=== PATIENT | female | born 1980 | race Caucasian/White ===

== ENCOUNTER 2024-01-22 23:10 | Emergency (ER) | payer OTHER, SELFPAY ==
[2024-01-22 23:16] VITALS: BP 127/83; PULSE 75; RESP 20; TEMP 36.6; O2SAT 98; BMI 22.6
[2024-01-22 23:50] VITALS: O2SAT 99
[2024-01-22 23:59] LABS: Chloride* 107 mmol/L (96-114); Potassium* 3.8 mmol/L (3.6-5.1); Sodium* 138 mmol/L (135-149)
[2024-01-23 00:01] LABS: Creatinine* 0.8 mg/dL (0.5-1.5); Est. Creatinine Clearance* 86.63
[2024-01-23 00:02] LABS: Anion Gap 6 mEq/L (7-15); Blood Urea Nitrogen* 20 mg/dL (5-24); Calcium* 9.3 mg/dL (8.4-10.6); Carbon Dioxide* 25 mmol/L (20-32); Estimated Glomerular Filt Rate 95 ml/min; Glucose* 111 mg/dL (60-115)
--- NOTE | 2024-01-23 00:13 | ED_ITS ---
HPI - General Adult General Chief complaint: Chest Pain Stated complaint: chest pain, difficulty breathing Time Seen by Provider: 01/22/24 23:59 Source: patient Mode of arrival: ambulatory Limitations: no limitations History of Present Illness HPI narrative: Female presents the emergency department 1 hour after onset of pain in the upper back area that quickly radiated around to the left anterior chest was accomp anied by bilateral finger tingling, lip tingling, sense of shortness of breath, dizziness, nausea and admittedly anxiety. Does have a history of anxiety disorder, denies history of cardiac issues. No prior stress testing. Does have a history of asthma. Reports that this has been under good control as of recent. Has used her albuterol inhaler a couple of times over the past week but not regularly, has not used her nebulizer at all. No recent steroid or antibiotic use. No productive cough or fever. Denies significant alcohol intake her other exacerbating factors. Chest pain started at rest, nonexertional. No abdominal pain, no trauma. Reports that she has been on would go be for about the past 10 months, significant weight loss without significant side effects, no other recent medication changes. Her only other long-term medications are her asthma control medications which have not recently changed. Reports that her symptoms started feeling much better once she was checked in by the nursing team, placed in a room and received some reassurance that her vitals were stable. Past medical history notable for moderate persistent asthma, obesity with recent successful weight loss. Allergies reviewed. Nonsmoker. ROS notable for the chest symptoms as described above, otherwise denies times 12 systems. Related Data Allergies Allergy/AdvReac Type Severity Reaction Status Date / Time aspirin AdvReac Verified 01/22/24 23:19 cephalexin [From Keflex] AdvReac Verified 01/22/24 23:19 Exam Const: Vital Signs, click to edit/add: Vital Signs - 24 hr 01/22/24 23:16 Temperature 97.9 F Pulse Rate [Pulse Oximeter] 75 Respiratory Rate 20 Blood Pressure [Ri ght Upper Arm] 127/83 Pulse Oximetry 98 Oxygen Delivery Me thod Room Air Documenting provider has reviewed patient's vital signs: yes Common normals: no apparent distress General appearance: cooperative, comfortable and well joi HENMT: Common normals: normocephalic, moist oral mucous membranes and oropharynx normal Head and scalp: normocephalic Eye: Common normals: conjunctivae normal General eye: normal appearance of both eyes Conjunctiva: conjunctiva(e) normal Neck & C-Spine: Common normals: full ROM and no lymphadenopathy Resp: Common normals: normal respiratory effort, no use of accessory muscles and clear to auscultation bilaterally Effort & inspection: able to speak in complete sentences Auscultation: clear to auscultation bilaterally Cardio: Common normals: regular rate, regular rhythm, S1 normal heart sound, S2 normal heart sound and no murmurs Rate: regular rate Rhythm: regular rhythm Heart sounds: S1 normal and S2 normal GI: Common normals: Normal to inspection, nondistended, normoactive bowel sounds present, soft to palpation, non-tender, no hepatosplenomegaly and no masses Palpation: soft and no hepatosplenomegaly Extremity: Common normals: normal to inspection, normal capillary refill and no pedal edema Neuro: Speech: speech normal Motor exam: no tremor noted and no movement abnormalities noted Psych: Common normals: speech normal Appearance: well kempt Attitude: calm and engaged Speech: normal speech Mood and affect: euthymic mood Insight: insight good Judgement: judgment good Course Course ED Course: I saw patient at the start of my shift but she had been waiting for over an hour. At this time she is calm, asymptomatic. Vitals are stable, EKG and troponin obtained, basic labs. No overwhelming risk factors for heart disease. Patient notes that she thinks now looking back that her symptoms were probably anxiety related. I am not detecting any signs of an asthma flare, GI illness and or significant musculoskeletal illness. Will await lab findings. Offered low-dose antianxiety medication, she declines at this time. If all labs are normal, counseled that she will be discharged home with primary care follow-up for persistent symptoms. Vital Signs Vital signs: Initial Vital Signs Temperature 97.9 F 01/22/24 23:16 Temperature Source Temporal Artery Scan 01/22/24 23:16 Pulse Rate 75 01/22/24 23:16 Respiratory Rate 20 01/22/24 23:16 Blood Pressure 127/83 01/22/24 23:16 Blood Pressure Mean 97 01/22/24 23:16 Blood Pressure Position Sitting 01/22/24 23:16 Pulse Oximetry 98 01/22/24 23:16 Oxygen Delivery Method Room Air 01/22/24 23:16 Vital Signs Temperature 97.9 F 01/22/24 23:16 Pulse Rate 75 01/22/24 23:16 Respiratory Rate 20 01/22/24 23:16 Blood Pressure 127/83 01/22/24 23:16 Pulse Oximetry 98 01/22/24 23:16 Oxygen Delivery Method Room Air 01/22/24 23:16 Temperature 97.9 F 01/22/24 23:16 Pulse Rate 75 01/22/24 23:16 Respiratory Rate 20 01/22/24 23:16 Blood Pressure 127/83 01/22/24 23:16 Pulse Oximetry 98 01/22/24 23:16 Oxygen Delivery Method Room Air 01/22/24 23:16 Medical Decision Making Lab Data Lab results reviewed: Yes I reviewed the patient's lab results Lab results narrative: Labs normal, as expected. Labs: Lab Results 01/22/24 Range/Units 23:35 WBC 12.15 H (4.50-11.00) K/uL RBC 5.54 H (4.00-5.20) m/uL Hgb 17.1 H (12.0-16.0) gm/dL Hct 50.1 (33.0-51.0) % MCV 90 (80-100) fL MCH 31 (26-34) pg MCHC 34 (32-36) gm/dL RDW Coeff of Ritu 12.0 (11.5-15.5) % Plt Count 385 (140-440) K/uL Neut % (Auto) 51.1 (42.0-72.0) % Lymph % (Auto) 36.8 (20-44) % [place] % (Auto) 5.6 (0.0-11.0) % Eos % (Auto) 5.8 (0.0-7.0) % Baso % (Auto) 0.6 (0.0-3.0) % Neut # (Auto) 6.20 (1.7-7.0) K/uL Lymph # (Auto) 4.50 H (0.90-2.90) K/uL [place] # (Auto) 0.70 (0.00-0.90) K/UL Eos # (Auto) 0.70 H (0.00-0.50) K/uL Baso # (Auto) 0.10 (0.00-0.30) K/uL Abs Immat Gran (auto) 0.00 (0.00-0.30) K/uL Imm/Tot Granulo (auto) 0.1 % Sodium 138 (135-149) mmol/L Potassium 3.8 (3.6-5.1) mmol/L Chloride 107 (96-114) mmol/L Carbon Dioxide 25 (20-32) mmol/L Anion Gap 6 L (7-15) mEq/L BUN 20 (5-24) mg/dL Creatinine 0.8 (0.5-1.5) mg/dL Estimated Creat Clear 86.63 Estimated GFR 95 ml/min Glucose 111 (60-115) mg/dL Calcium 9.3 (8.4-10.6) mg/dL POC Troponin I 0.00 L (0.01-0.04) ng/ml ECG Data Attestation: I personally reviewed and interpreted this ECG as follows: Prior ECG tracings: available for review (Comparison 07/27/2020) Interpretation: Since 2019, P waves have enlarged which could indicate some early atrial enlargement but is otherwise benign. Normal sinus rhythm, rate 71. Normal axis and intervals. No signs of ischemia. ST and T-wave segments normal. Discharge Plan Discharge Clinical Impression: Non-cardiac chest pain Patient Disposition: Home w/ Parent or Adult Condition: Improved Instructions: Noncardiac Chest Pain (ED) Additional Instructions: As we discussed, your heart and lungs are in great shape. No signs of a heart attack today. Your chest pain could be related to anxiety, it could also be related to gastric reflux which would certainly be worsened with your use of wegovy. Continue to keep an eye on your symptoms. If you continue to have persistent symptoms that are bothersome, discuss with your primary care provider. If you have worsening of chest symptoms, especially if on exertion, you should be re-evaluated sooner. Activity Level: No Restrictions Discharge Diet: Regular Stand Alone Forms: [employer] Info Instructions
[2024-01-23 00:22] LABS: Basophils Percent Auto 0.6 % (0.0-3.0); Eosinophils Percent Auto 5.8 % (0.0-7.0); Hematocrit 50.1 % (33.0-51.0); Hemoglobin* 17.1 gm/dL (12.0-16.0); Immature Granulocytes Pct Auto 0.1 %; Lymphocytes Percent Auto 36.8 % (20-44); Mean Corpuscular HGB Conc 34 gm/dL (32-36); Mean Corpuscular Hemoglobin 31 pg (26-34); Mean Corpuscular Volume 90 fL (80-100); Monocytes Percent Auto 5.6 % (0.0-11.0); Neutrophils Percent Auto 51.1 % (42.0-72.0); Platelet Count* 385 K/uL (140-440); Red Blood Count 5.54 m/uL (4.00-5.20); White Blood Count* 12.15 K/uL (4.50-11.00)
[2024-01-23 00:25] LABS: Slide Review Reflex No
[2024-01-23 00:45] VITALS: BP 118/74; PULSE 81; RESP 20; TEMP 36.6; O2SAT 98
[2024-01-23 00:47] VITALS: BP 118/74; PULSE 81; RESP 20; TEMP 36.6
== END 2024-01-23 00:47 | disposition home or self-care (01) ==
LOC: ED 01-23 00:21
PROVIDERS: Emergency Provider Family Medicine
DX: R07.89 Other chest pain (principal)
CPT/HCPCS: 36415; 80048; 84484; 85025; 93005; 94761; 99283; 99284

== ENCOUNTER 2024-09-11 20:55 | Outpatient (CLI) | payer OTHER, SELFPAY | END 2024-09-11 20:56 | disposition home or self-care (01) | LOC: AMB 09-14 03:58 | PROVIDERS: Visit Provider Emergency Medicine | DX: R06.09 Other forms of dyspnea (principal) | CPT/HCPCS: A0425; A0427 ==

== ENCOUNTER 2024-09-11 21:25 | Emergency (ER) | payer OTHER, SELFPAY ==
[2024-09-11 21:32] VITALS: BP 134/96; PULSE 76; RESP 24; TEMP 36.5; O2SAT 93; BMI 23.4
--- NOTE | 2024-09-11 21:34 | ED_ITS ---
HPI - General Adult General Date Seen: 09/11/24 Chief complaint: Asthma Stated complaint: Asthma Attack Time Seen by Provider: 09/11/24 21:33 History of Present Illness HPI narrative: 44 yo F brought to the ER today by EMS for evaluation of difficulty breathing, w heezing, and asthma attack. History from the patient is says she has a long history of asthma and allergies ever since she turned 36 years old. She is on multiple medications including Zyrtec, Singulair, Trelegy, Flonase, budesonide inhalers b.i.d.. She also has albuterol inhaler that she uses frequently at home. She has multiple previous ER visits and multiple previous hospitalizations but no previous intubations for asthma. She was probably on a course of prednisone earlier this month but she does not remember for sure. Within 1 or 2 months for certainly. She has been feeling a productive cough and like her asthma is flaring up for the past several days. In retrospect, she says she think she probably should have gone to the doctor a couple of days ago. She was working outside all day today and started to feel more short of breath because of the weather. Around 8 or 8:20 p.m. she was working in the barn when she really felt an asthma attack flare up. She was very short of breath and anxious. She thought she might collapse. She called her and asked him to call 911. She tried to give herself multiple of her albuterol inhalers but they really were not helping. Paramedics were delayed in arrival because they received the wrong address but when they arrived she was wheezy. They administered a DuoNeb. They were able to establish IV and brought her straight here to the ER. After the multiple inhalers and DuoNeb she is feeling slightly better but is still tight and wheezy. She is not running a fever. She does have a productive yellow cough. No chest pain. No known sick exposures. Related Data Home Medications ?Medication ?Instructions ?Recorded ?Confirmed albuterol sulfate 90 mcg/actuation inhalation 09/11/24 aerosol inhaler aripiprazole 5 mg tablet 5 mg DAILY 09/11/24 budesonide 1 mg/2 mL suspension 1 mg DAILY 09/11/24 for nebulization bupropion HCl 300 mg 24 hr tablet, 300 mg PO DAILY 09/11/24 09/11/24 extended release buspirone 30 mg tablet 30 mg PO BID 09/11/24 09/11/24 fluticasone fur. 200 mcg-umeclid inhalation DAILY 09/11/24 62.5 mcg-vilant 25 mcg inhalat.powder (Trelegy Ellipta) hydroxyzine HCl 10 mg tablet 10 mg PO BID 09/11/24 09/11/24 montelukast 10 mg tablet 10 mg PO QPM 09/11/24 09/11/24 omeprazole 20 mg capsule,delayed 20 mg PO DAILY 09/11/24 09/11/24 release semaglutide (weight loss) 2.4 2.4 mg subcut 09/11/24 mg/0.75 mL subcutaneous pen injector (Wegovy) Previous Rx's ?Medication ?Instructions ?Recorded prednisone 10 mg tablet See Rx Instructions .Route 09/11/24 .COMPLEX #42 tabs Allergies Allergy/AdvReac Type Severity Reaction Status Date / Time aspirin AdvReac Verified 01/22/24 23:19 cephalexin (From Keflex) AdvReac Verified 01/22/24 23:19 [facility] Medical History (Updated 09/11/24 @ 23:31 by Omari Gomez MD) Asthma ?J45.909 - Unspecified asthma, uncomplicated (ICD-10) Social History Smoking Status: Current every day smoker Second hand tobacco smoke exposure: Yes How often do you have a drink containing alcohol: never AUDIT-C Alcohol total score: 0 Non-prescribed substance use: denies use Exam Narrative: Exam Narrative: Constitutional: Appears well-developed and well-nourished. Alert. Conversant and able to speak moderately long sentences but does look short of breath and is tachypneic. She is alert, conversant, very detailed and intelligent. Mentating normally. HENT: Head: Atraumatic. Nose: Nose normal. Mouth/Throat: Oral mucosa is clear and moist. no trismus. Pharynx normal. Tonsils symmetric. No tonsillar enlargement, erythema, or exudate. Eyes: Conjunctivae normal. EOM normal. Pupils equal, round, and reactive to light. No scleral icterus. Neck: Normal range of motion. Neck supple. No tracheal deviation present. No JVD Cardiovascular: Normal rate, regular rhythm. No gallop. No friction rub. No murmur heard. Symmetric radial artery pulses Pulmonary/Chest: Effort normal. No stridor. No respiratory distress. Diffuse bilateral wheezing and she cannot really breathe out without coughing due to bronchospastic cough.. No rales. No rhonchi . No tenderness. Abdominal: Soft. No distension. No mass. No tenderness. No rebound. No guarding. Musculoskeletal: RUE: Normal range of motion. No tenderness. No deformity LUE: Normal range of motion. No tenderness. No deformity RLE: Normal range of motion. No edema. No tenderness. No deformity LLE: Normal range of motion. No edema. No tenderness. No deformity Neurological: Alert and oriented to person, place, and time. Normal strength. CN II-VII intact. No sensory deficit. GCS eye subscore is 4. GCS verbal subscore is 5. GCS motor subscore is 6. Normal coordination Skin: Skin is warm and dry. No rash noted. No pallor. Normal capillary refill. Psychiatric: Normal mood. Normal affect. Const: Vital Signs, click to edit/add: Vital Signs - 24 hr 09/11/24 21:32 09/11/24 21:53 09/11/24 22:00 Temperature 97.7 F Pulse Rate 80 81 Pulse Rate [Right Pulse Oximeter] 76 Respiratory Rate 24 Blood Pressure [Ri ght Upper Arm] 134/96 H Pulse Oximetry 93 96 97 Oxygen Delivery Me thod Room Air 09/11/24 22:15 09/11/24 22:30 Temperature Pulse Rate 78 81 Pulse Rate [Right Pulse Oximeter] Respiratory Rate Blood Pressure [Ri ght Upper Arm] Pulse Oximetry 98 100 Oxygen Delivery Me thod Course Course ED Course: On initial evaluation she was quite wheezy, and tachypneic, feeling short of breath. Overall though is mentating normally. Not requiring immediate initiation of BiPAP or intubation. Recheck-feeling tremendously better after nebs, steroids, magnesium. She says says she feels like she is not wheezing anymore. She is hungry and wants to order a pizza. Reevaluation(s) Reevaluation #1: Recheck-lung sounds almost completely clear. Minimal ongoing wheezing. She is breathing easily, clearly much improved work of breathing. Speaking full sentences. Tremendously improved. She feels like she is ready to go home. Reevaluation #2: Recheck- and family arrived. Vital Signs Vital signs: Initial Vital Signs Temperature 97.7 F 09/11/24 21:32 Temperature Source Temporal Artery Scan 09/11/24 21:32 Pulse Rate 76 09/11/24 21:32 Respiratory Rate 24 09/11/24 21:32 Blood Pressure 134/96 H 09/11/24 21:32 Blood Pressure Mean 108 H 09/11/24 21:32 Blood Pressure Position Sitting 09/11/24 21:32 Pulse Oximetry 93 09/11/24 21:32 Oxygen Delivery Method Room Air 09/11/24 21:32 Vital Signs Temperature 97.7 F 09/11/24 21:32 Pulse Rate 76 09/11/24 21:32 Respiratory Rate 24 09/11/24 21:32 Blood Pressure 134/96 H 09/11/24 21:32 Pulse Oximetry 93 09/11/24 21:32 Oxygen Delivery Method Room Air 09/11/24 21:32 Temperature 97.7 F 09/11/24 21:32 Pulse Rate 81 09/11/24 22:30 Respiratory Rate 24 09/11/24 21:32 Blood Pressure 134/96 H 09/11/24 21:32 Pulse Oximetry 100 09/11/24 22:30 Oxygen Delivery Method Room Air 09/11/24 21:32 Medications Administered Medications: Discontinued Medications Generic Name Dose Route Start Last Admin Trade Name Freq PRN Reason Stop Dose Admin Albuterol 2.5 mg 09/11/24 21:41 09/11/24 22:23 Albuterol Sulfate 2.5 Mg/3 Ml Vial.Neb NEB 09/11/24 21:42 2.5 mg ONCE ONE Administration Albuterol/Ipratropium 1 neb 09/11/24 21:41 09/11/24 22:13 Iprat-Albut 0.5-2.5 Mg/3 Ml Neb IH 09/11/24 21:42 1 neb ONCE ONE Administration Magnesium Sulfate 2 gm in 50 mls @ 150 mls/hr 09/11/24 21:43 09/11/24 22:35 Magnesium Iv IVPB 09/11/24 22:02 Infused ONCE ONE Infusion Methylprednisolone Sodium Succinate 125 mg 09/11/24 21:41 09/11/24 22:05 Methylprednisolone Sod Succ 62.5 Mg/Ml (125) IVP 09/11/24 21:42 125 mg ONCE ONE Administration Medical Decision Making MDM Narrative Medical decision making narrative: This patient presents for evaluation of shortness of breath and wheezing. She also has had several days of productive cough. Signs and symptoms are consistent with asthma exacerbation. She was quite short of breath at home and had to come in by EMS. A broad differential was considered including asthma, pneumonia, bronchitis, pneumothorax, viral induced wheezing, allergic phenomena, among others. There are no signs at this point of any serious etiologies including those mentioned above. Chest x-ray is clear. Laboratory workup reassuring. VBG reassuring. The patient feels and sounds improved after nebulizers, IV steroids, IV magnesium here in ED. she made a tremendous improvement. No indication for hospitalization at this time including no hypoxia, no marked increase in respiratory rate, and there are minimal to no retractions. Supportive outpatient management is indicated, medications for discharge noted above. Close followup with primary care physician. Return if increased wheezing, progressive shortness of breath, develops fever greater than 102. Questions answered and patient comfortable with plan. Typically which she gets a flare of asthma she requires a slow tapering course of prednisone. Therefore rather than a 5 day burst for will put her on a a tapering course of prednisone. Lab Data Labs: Lab Results 09/11/24 Range/Units 22:02 WBC 11.15 H (4.50-11.00) K/uL RBC 5.06 (4.00-5.20) m/uL Hgb 15.6 (12.0-16.0) gm/dL Hct 44.4 (33.0-51.0) % MCV 88 (80-100) fL MCH 31 (26-34) pg MCHC 35 (32-36) gm/dL RDW Coeff of Ritu 11.7 (11.5-15.5) % Plt Count 306 (140-440) K/uL Neut % (Auto) 70.2 (42.0-72.0) % Lymph % (Auto) 18.4 L (20-44) % Sol[place] % (Auto) 5.0 (0.0-11.0) % Eos % (Auto) 5.8 (0.0-7.0) % Baso % (Auto) 0.5 (0.0-3.0) % Neut # (Auto) 7.80 H (1.7-7.0) K/uL Lymph # (Auto) 2.10 (0.90-2.90) K/uL Sol[place] # (Auto) 0.60 (0.00-0.90) K/UL Eos # (Auto) 0.60 H (0.00-0.50) K/uL Baso # (Auto) 0.10 (0.00-0.30) K/uL Abs Immat Gran (auto) 0.00 (0.00-0.30) K/uL Imm/Tot Granulo (auto) 0.1 % VBG pH 7.367 (7.32-7.43) VBG pCO2 43 (40-50) mmHG VBG pO2 < 30.1 (25-47) mmHG VBG HCO3 25 (21-28) mmol/L Sodium 138 (135-149) mmol/L Potassium 3.7 (3.6-5.1) mmol/L Chloride 106 (96-114) mmol/L Carbon Dioxide 22 (20-32) mmol/L Anion Gap 10 (7-15) mEq/L BUN 19 (5-24) mg/dL Creatinine 0.9 (0.5-1.5) mg/dL Estimated Creat Clear 76.23 Estimated GFR 82 ml/min Glucose 69 (60-115) mg/dL Calcium 9.6 (8.4-10.6) mg/dL Magnesium 2.0 (1.5-2.6) mg/dL HCG, Qual Negative (Negative) Imaging Data Chest x-ray: Attestation: I have reviewed the pertinent imaging results. Radiologist's impression: IMPRESSION: No acute or significant findings. Discharge Plan Discharge Clinical Impression: Asthma with acute exacerbation Patient Disposition: Home, Self-Care Condition: Stable Instructions: Asthma (DC) Additional Instructions: As we discussed, please come back to the ER right away if you get worse, especially if you have have worsening shortness of breath, chest pain, high fever, bloody cough, or any concerns. Use your nebulizer or inhaler as needed to treat your bronchospasm and shortness of breath. Started on the prednisone tomorrow morning. Continue your other regular controller medications. Prescriptions: New prednisone 10 mg tablet See Rx Instructions .ROUTE .COMPLEX Qty: 42 0RF Rx Instructions: 60mg PO Daily for 2 days, then 50mg PO daily for 2 days, then 40mg PO daily for 2 days, then 30mg PO daily for 2 days, then 20mg PO daily for 2 days, then 10mg PO daily for 2 days No Action buspirone 30 mg tablet 30 mg PO BID omeprazole 20 mg capsule,delayed release(DR/EC) 20 mg PO DAILY montelukast 10 mg tablet 10 mg PO QPM albuterol sulfate 90 mcg/actuation HFA aerosol inhaler inhalation hydroxyzine HCl 10 mg tablet 10 mg PO BID aripiprazole 5 mg tablet 5 mg DAILY bupropion HCl 300 mg tablet extended release 24 hr 300 mg PO DAILY budesonide 1 mg/2 mL suspension for nebulization 1 mg DAILY Trelegy Ellipta 200-62.5-25 mcg blister with device inhalation DAILY Wegovy 2.4 mg/0.75 mL pen injector 2.4 mg subcut Follow Up/Referrals: Provider,Not a Local [Primary Care Provider] - Stand Alone Forms: [facility] Info Instructions
--- NOTE | 2024-09-11 21:41 | CRLHL7_ITS ---
For Patients: As a result of the Century Cures Act, medical imaging exams and procedure reports are released immediately into your electronic medical record. You may view this report before your referring provider. If you have questions, please contact your health care provider. INDICATION: Dyspnea, wheezing, productive cough. TECHNIQUE: Chest 1 views. COMPARISON: None. FINDINGS: Cardiovascular and mediastinum: Heart size is normal. Unremarkable mediastinum. Lungs and pleural spaces: Lungs are clear. No sign of infiltrate or mass. No sign of pleural effusion. No pneumothorax. Bones and soft tissues: No significant findings. IMPRESSION: No acute or significant findings. Dictated by Ramana Elias MD @ 09/11/2024 11:08:54 PM (Electronically Signed)
[2024-09-11 21:53] VITALS: PULSE 80; O2SAT 96
[2024-09-11 22:00] VITALS: PULSE 81; O2SAT 97
[2024-09-11] MEDS: METHYLPREDNISOLONE SOD SUCC 62.5 MG/ML (125) 125 MG IVP (22:05)
[2024-09-11 22:07] LABS: HCO3 VBG 25 mmol/L (21-28); PCO2 VBG 43 mmHG (40-50); PO2 VBG < 30.1 mmHG (25-47); pH VBG 7.367 (7.32-7.43)
[2024-09-11 22:08] LABS: Basophils Percent Auto 0.5 % (0.0-3.0); Eosinophils Percent Auto 5.8 % (0.0-7.0); Hematocrit 44.4 % (33.0-51.0); Hemoglobin* 15.6 gm/dL (12.0-16.0); Immature Granulocytes Pct Auto 0.1 %; Lymphocytes Percent Auto 18.4 % (20-44); Mean Corpuscular HGB Conc 35 gm/dL (32-36); Mean Corpuscular Hemoglobin 31 pg (26-34); Mean Corpuscular Volume 88 fL (80-100); Neutrophils Percent Auto 70.2 % (42.0-72.0); Platelet Count* 306 K/uL (140-440); RDW Coefficient of Variation % 11.7 % (11.5-15.5); Red Blood Count 5.06 m/uL (4.00-5.20); White Blood Count* 11.15 K/uL (4.50-11.00)
[2024-09-11] MEDS: MAGNESIUM IV 2 GM/50 ML PIGGYBACK IVPB (22:10)
[2024-09-11] MEDS: IPRAT-ALBUT 0.5-2.5 MG/3 ML NEB 1 NEB IH (22:13)
[2024-09-11 22:15] VITALS: PULSE 78; O2SAT 98
[2024-09-11] MEDS: ALBUTEROL SULFATE 2.5 MG/3 ML VIAL.NEB NEB (22:23)
[2024-09-11 22:27] LABS: Chloride* 106 mmol/L (96-114); Potassium* 3.7 mmol/L (3.6-5.1); Sodium* 138 mmol/L (135-149)
[2024-09-11 22:30] VITALS: PULSE 81; O2SAT 100
[2024-09-11 22:30] LABS: Anion Gap 10 mEq/L (7-15); Blood Urea Nitrogen* 19 mg/dL (5-24); Carbon Dioxide* 22 mmol/L (20-32); Creatinine* 0.9 mg/dL (0.5-1.5); Est. Creatinine Clearance* 76.23; Estimated Glomerular Filt Rate 82 ml/min; Glucose* 69 mg/dL (60-115)
[2024-09-11 22:31] LABS: Calcium* 9.6 mg/dL (8.4-10.6)
[2024-09-11 22:42] LABS: HCG Qualitative Serum* Negative (Negative)
[2024-09-11 22:48] LABS: Slide Review Reflex No
--- OUTSIDE RECORDS SUMMARY | 2024-09-16 12:17 | XMS_ITS | Continuity of Care Document ---
Author Name KRISTAL Frazier [facility] Address [address] [place] [address] Organization [facility] Address [address] [place] [address] Care Team Providers Care Fountain Pen Nibs Inspector Name Role Phone PCP, None Primary Care Physician Unavailab le PCP, None Primary Care Physician Unavailab Edi Vergara [facility] Physician [phone] Allergies, Adverse Reactions, Alerts Allergen Type Severity Reaction Last Updated Verified Status cat dander Allergy Itching April 07, 2018 Y Active grass pollen Allergy Itching April 07, 2018 Y Active mold Allergy Bronchospasms April 07, 2018 Y Activ e tree and shrub pollen Allergy Itching April 07, 2018 Y Active Medications Active Medications Medication Dose Units Route Sig Qty Days Start Date Discontinued Date Status Instructions Albuterol Sulfate 2 PUFF INH Q4H PRN For sob April 07, 2018 Active Dextroamphetam ine/Amphetamin e 1 TAB PO Daily April 07, 2018 Active Budesonide/For moterol Fumarate 2 PUFF IH Twice Daily April 07, 2018 Active Cetirizine 10 MG PO Q8H April 07, 2018 Active Diphenhydramin e 25 MG PO Daily April 07, 2018 Active Fluoxetine Hcl 20 MG PO Daily J toña 2017 Active Montelukast Sodium 10 MG PO Daily April 07, 2018 Active Pantoprazole 40 MG PO Daily Apr y 2017 Active Prednisone 20 MG PO Twice Daily 20 April 07, 2018 Active Albuterol 2 PUFF INH Q4H PRN For Cough wheezi ng chest tightn ess 1 April 07, 2018 Active Problem List Active Problems Medical Problem Onset Date Status Allergic asthma Active Procedures No known history of procedures. Relevant Diagnostic Tests and/or Laboratory Data No known relevant diagnostic tests, laboratory data, and/or discharge summary. Advance Directives Advance Directive Response Recorded Date/ Time Patient has Advance Directiv e *Q No, Patient Refuses Advance Directive Information April 07, 2018 10:32pm Chief Complaint and Reason for Visit Encounter Admit Date Chief Complaint Reason for V isit Departed Emergency April 07, 2018 10:18pm REACTION/CAN'T BREATHE Hospital Discharge Instructions Query Response Comment Date/Time Mode of Departure, General Discharge Ambulatory 04/07/2018 23:57 Accompanied By Other (see below) 04/07/20 18 23:57 Patient Education Completed Yes 04/07/2018 23:57 Personal Belongings with Patient Yes 04/07/2018 23:57 External Facility Requested Documentation No 04/07/2018 23:57 Additional Discharge Instructions Return to emergency if worsening Instruction/Education Provided [facility] Discharge Medications Medication Dose Units Route Sig Qty Days Order Date Status Instructions Albuterol Sulfate 2 PUFF INH Q4H PRN For sob April 07, 2018 Active Dextroamphetamine/A mphetamine 1 TAB PO Daily April 07, 2018 Active Budesonide/Formoter ol Fumarate 2 PUFF IH Twice Daily April Active Cetirizine 10 MG PO Q8H April 07, 2018 Active Diphenhydramine 25 MG PO Daily April 07, 2018 Active Fluoxetine Hcl 20 MG PO Daily 2017 Active Montelukast Sodium 10 MG PO Daily April 07, 2018 Active Pantoprazole 40 MG PO Daily Apr Active Prednisone 20 MG PO Twice Daily 20 J 2017 Active Albuterol 2 PUFF INH Q4H PRN For Cough wheezing chest tightness 1 April 07, 2018 Active Encounters Encounter Facility Location Admit Date Discharge Date Atte nding Provider Departed Emergency [facility] - [facility] April 07, 2018 10:18pm April 07, 2018 11:57pm Functional Status No known functional status. Immunizations No known immunizations. Payers Payer Name Policy Type Covered Republican Covered Republican Id Relationship Subscriber Subscriber Id HARRISON IGLESIAS [id number] Self/Same as Patient 18 ZOILA IGLESIAS [id number] Plan of Care Instructions Asthma Attack Social History Query Response Date Recorded Comment Alcohol Use History No April 07, 2018 10:32pm Caffeine Use Soda April 07, 2018 11:50pm Recreational Drug Use History No April 07 8 11:50pm Smoking Status *Q Never Smoker April 07, 2018 11:50pm Tobacco Use/Smoking Within Last 30 Days No J toña2017 10:32pm Vital Signs Vital Reading Result Reference Range Collection Date/Time Height 1.6 m April 07, 2018 10 :24pm Weight 82.6 kg April 07, 2018 10 :24pm Temperature 97.5 F 95.3 F-100.5 F April 07, 2018 10:32pm Pulse 82 BPM 60-100 April 07, 2018 10 :32pm Respiration 18 RPM 12-20 April 07, 2018 10 :32pm Pulse Oximetry 98 % 95-100 April 07, 2018 10:32pm Blood Pressure Systolic 143 90-140 April 07, 2018 10:32pm Blood Pressure Diastolic 76 60-90 Apr 10:32pm Body Mass Index 32.2 April 07, 2018 10:24pm
== END 2024-09-11 23:40 | disposition home or self-care (01) ==
PROVIDERS: Emergency Provider Emergency Medicine
DX: J45.901 Unspecified asthma with (acute) exacerbation (principal)
CPT/HCPCS: 36415; 71045; 80048; 82803; 83735; 84703; 85025; 94640; 96365; 96374; 96375; 99284; J2919; J3475

== ENCOUNTER 2025-03-27 10:17 | Inpatient (IN) | payer OTHER, SELFPAY ==
--- OUTSIDE RECORDS SUMMARY | 2021-10-25 09:01 | XMS_ITS | Continuity of Care Document ---
Author Organization [facility] Address [address] [address] [place] [address] Phone Care Team Providers Care Staff Physical Therapist Name Role Phone Maxwell OAKESKristen Unavailable Unavailable Allergies, Adverse Reactions, Alerts Substance Reaction Status Criticality ibuprofen Nausea/Vomiting Active No Informati on CEPHALEXIN MONOHYDRATE Severe jaw pain Active No Information Medications Medication Instructions Dosage Effective Dates (start - stop) Status Comments Prilosec OTC 20 mg tablet,delayed release take 1 Tablet by Oral route every day 1 Tablet - Active Wellbutrin XL 300 mg 24 hr tablet, extended release take 1 tablet by ORAL route every day 300 MG - Active PROZAC (unknown strength) take 1 Capsule by ORAL route every day in the morning Not Available - Active buspirone 10 mg tablet take 2 tablet by oral route 2 times every day 20 MG - Active Zyrtec 10 mg tablet take 1 tablet by oral route every day 10 MG - Active montelukast 10 mg tablet take 1 tablet by oral route every day in the evening 10 MG - Active trazodone 100 mg tablet take 2 tablet by ORAL route every day after meals 200 MG - Active ALBUTEROL SULFATE (unknown strength) inhale 3 milliliter by nebulization route 3 times every day Not Available - Active Procedures Procedure Date Colonoscopy Flex; W/remov Les- Colonoscopy Flex; W/bx 1/mx Level Iv-surg Path Gross/micro Advance Directives Directive Yes / No Effective Date File Name No Information Encounters Encounter Description Practice Location Reason(s) For Visit Diagnoses Date Provider Providers Copied on Encounter [facility], [address] [address], [place], [id number], [place] tel:[phone] [facility] No Information 2 Maxwell CHAMP Kristen. [address], [facility] [place], [place], [id number] , [place]. [phone] Referring Provider: Candy Ocampo, [address] [facility] [address], [place], [address]. tel:[phone] [facility], [address] [address], [place], [id number], [place] tel:[phone] [facility] GI Symptoms or Concerns (chief complaint) Change in bowel habitsFamily history of colon cancerPersonal history of colonic polypsFamily history of polyps in the colonFamily history of colonic polypsColorectal polyp detected on colonoscopyChange in bowel habitPolyp of colonFamily history of colonic polyps 2 Alverto Gupta . [address] [facility] [address], [facility] [address], [facility] [place], [place], [id number] , [place]. tel:[phone] Referring Provider: Sulma Andrews DO, [address] [place] [address], [address]. tel:[phone] [facility], [address] [address], [place], [id number], [place] tel:[phone] [facility] No Information 1 Manuel Richards. [address] [facility] [address], [address], [facility] [place], [place], [id number] , [place]. [phone] Family History Family Member Type Diagnosis Age At Onset Sister Problem (finding) celiac disease Brother Problem (finding) asthma Father Problem (finding) Colon polyps Mother Problem (finding) Colon polyps Brother Problem (finding) alcoholism Immunizations Vaccine Date Status Comments SARS-COV-2 (COVID-19) vaccin e, mRNA, spike protein, LNP, preservative free, 30 mcg/0.3mL dose administered Note: [facility] bi-direct ional interface ; Source: Other Registry Pneumovax 23 administered Note: [facility] bi-d irectional interface ; Source: Other Registry SARS-COV-2 (COVID-19) vaccin e, mRNA, spike protein, LNP, preservative free, 100 mcg or 50 mcg dose administered Note: [facility] bi-direct ional interface ; Source: Other Registry Seasonal, quadrivalent, recombinant, injectable influenza vaccine, preservative free administered Note: [facility] bi-direct ional interface ; Source: Other Registry Afluria Qd administered Note: [facility] bi-directional interface ; Source: Other Registry Influenza administered Note: [facility] bi-d irectional interface ; Source: Other Registry Afluria Qd administered Note: [facility] bi-directional interface ; Source: Other Registry Afluria Qd administered Note: [facility] bi-directional interface ; Source: Other Registry Payers Payer name Insurance type Covered democrat ID Authoriza tion(s) No Information Social History Type Description Quantity Date Captured Comments Sex Female Smoking Status No Information Chief Complaint And Reason For Visit No Information Reason For Referral Reason For Referral No Information History Of Present Illness Encounter Date Complaint History Of Prese nt Illness GI Symptoms or Concerns Functional Status Date Functional Assessmen t No Information Instructions Date Instruction Additional Infor mation Colon Cancer Prevention Related to Colorectal polyp detected on colonoscopy Colon Polyps Related to Color ectal polyp detected on colonoscopy Assessments Type Assessment Date No Information Patient Care Teams Name Effective Dates (start - stop) Status Members No Information
--- OUTSIDE RECORDS SUMMARY | 2021-10-25 09:01 | XMS_ITS | Continuity of Care Document ---
Author Organization [facility] Address [address] [address] [place] [address] Phone Care Team Providers Care Entertainment Lawyer Name Role Phone Maxwell OAKESKristen Unavailable Unavailable [...] Provider Providers Copied on Encounter [facility], [address] [address], [place], [id number], [place] tel:[phone] [facility] No Information 2 Maxwell CHAMP Kristen. [address] [facility], [address], [facility] [place], [id number] , [place]. [phone] Referring Provider: Candy Ocampo, [address] [facility] [address], [place], [address]. tel:[phone] [facility], [address] [address], [place], [id number], [place] tel:[phone] [facility] GI Symptoms or Concerns (chief complaint) Change in bowel habitsFamily history of colon cancerPersonal history of colonic polypsFamily history of polyps in the colonFamily history of colonic polypsColorectal polyp detected on colonoscopyChange in bowel habitPolyp of colonFamily history of colonic polyps 2 Alverto Gupta . [address] [address], [facility] [address], [facility] [place], [id number] , [place]. [phone] Referring Provider: Sulma Andrews DO, [address] [place] [address], [address]. tel:[phone] [facility], [address] [address], [place], [id number], [place] tel:[phone] [facility] No Information 1 Manuel Richards. [address] [facility], [address], [facility] [place], [id number] , [place]. [phone] Family History Family Member Type Diagnosis Age [...] Registry Payers Payer name Insurance type Covered constitution party ID Authoriza tion(s) No Information Social History [...]
--- OUTSIDE RECORDS SUMMARY | 2025-03-19 10:40 | XMS_ITS | Encounter Summary ---
Author Organization [facility] Address [address], [place] [address] Care Team Providers [facility] Nurse Name Role Phone Aaron Morales MD Primary Care Provider [phone] Reason for Visit * Reason Comments PAIN, SINUS Encounter Details Date Type Department Care Team (Late st Contact Info) Description 03/19/2025 10:40 AM CDT Office Visit [facility] [address] [place] [address] Greg Casas MD [address] [place] [address] Sinus congestion Social History Tobacco Use Types Packs/Day Years Used Date Smoking Tobacco: Every Day Cigarettes 1 26.7 Started: 1995; Last attempted to quit: 2020 Alcohol Use Standard Drinks/Week Comments Yes 0 (1 standard drink = 0.6 oz pur e alcohol) occ PHQ-2 Answer Date Recorded PHQ-2 Score 2 07/09/2023 Comments No Sex and Gender Information Value Date Recorded Sex Assigned at Female 08/12/2023 11:19 AM PHILOSOPHY AND RELIGION INSTRUCTOR Legal Sex Female 5:45 AM CDT Gender Identity Female 08/12/2023 11:19 AM PHILOSOPHY AND RELIGION INSTRUCTOR Sexual Orientation Not on file 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 on file Not on file documented as of this encounter Last Filed Vital Signs Vital Sign Reading Time Taken Comments Blood Pressure 113/63 03/19/2025 10:09 AM CDT Pulse 102 03/19/2025 10:09 AM CDT Temperature 36.9 C (98.4 F) 03/19/2025 10:09 AM CDT Respiratory Rate 16 03/19/2025 10:09 AM CDT Oxygen Saturation 96% 03/19/2025 10:09 AM CDT Inhaled Oxygen Concentration - - Weight - - Height - - Body Mass Index - - documented in this encounter Progress Notes * Greg Casas MD - 03/19/2025 10:40 AM CDT Nursing Notes: Chase Arnaldo N 03/19/25 1011 Signed Sanam Ramos is a 44 y.o.female presents to the Urgent Care for PAIN, SINUS What cold symptoms are you experiencing?Nose/Sinus/Ear Do you have a runny nose? YES Are you sneezing? No Are you experiencing any nasal congestion? YES Are you experiencing any headaches?YES Do you have any facial or dental pain? YES Do you have any ear pain? No Do you have any eye itching or irritation? No Have you had a history of sinus infections? YES How long have you had these symptoms? 2 week(s) Have you had a fever? No Are there any treatments you have tried? YES What products have you tried? Tylenol PM Did the treatment help your symptoms? Has not changed Patient requests an excuse letter for work/school: No SUBJECTIVE: Sanam Ramos is a 44 y.o. female who has a primary physician in our system, complaining of bilateral sinus pain, nasal congestion, dental pain associated with that, for last 2 weeks.Dark yellow nasal discharge. She has a history of chronic sinus infection but this is the 1st 1 since her sinus surgery last year. I reviewed the ENT note from July 08 of last year. She has been d oing rinsing and using Flonase. She does have a history of asthma and is a smoker. Her past medicalhistory is otherwise quite vast which I reviewed today. Allergies: Aspirin, Ibuprofen, and Cephalexin Past medical history: has a past medical history of Asthma ([facility]) (2017), Caries, Depression, Psychiatric disorder ([facility]), and Sinus trouble. Medications: Current Outpatient Medications Medication Sig Note Dispense Refill albuterol 2.5 mg/3 mL, 0.083%, (PROVENTIL) nebulizer solution 1 Each (2.5 mg) by Nebulization routeevery 2 hours as needed for Wheezing or Shortness of Breath. Inhale one vial every 20 minutes up tothree times. Then every 1-4 hours as needed. 90 mL 1 ALBUterol sulfate HFA 108 (90 Base) MCG/ACT inhaler INHALE 2 PUFFS BY MOUTH EVERY 6 HOURS 3 Each 3 amoxicillin-clavulanate (AUGMENTIN) 875-125 mg per tablet Take 1 Tablet by mouth two times a day for 14 days. 28 Tablet 0 ARIPiprazole (ABILIFY) 5 MG tablet Take 1 Tablet (5 mg) by mouth daily. 90 Tablet 3 budesonide (PULMICORT) 0.25 MG/2ML nebulization suspension 2 mL (0.25 mg) two times a day. buPROPion (WELLBUTRIN XL) 300 MG 24 hour release tablet Take 1 Tablet (300 mg) by mouth daily. 07/31/2023: Taking 450 mg once daily cetirizine (ZYRTEC) 10 MG tablet Take 1 Tablet (10 mg) by mouth daily. cholecalciferol (VITAMIND3) 50 MCG (2000 UT) tablet Take 1 Tablet (2,000 Units) by mouth daily. dupilumab (DUPIXENT) 300 MG/2ML prefilled syringe Inject 4 mL (600 mg) subcutaneously every 14 days. Inject 2 syringes (600mg) under the skin once, then 2 weeks later reduce to 1 pen (300mg) under the skin every 14 days thereafter Indications: Asthma (Patient not taking: Reported on 03/19/2025) 8 mL1 finasteride (PROSCAR) 5 MG tablet Take 1 Tablet (5 mg) by mouth daily. 90 Tablet 3 FLUoxetine (PROZAC) 40 MG capsule Take 1 Capsule (40 mg) by mouth daily. hkfbotfifjg-niimctufv-usspzi (TRELEGY ELLIPTA) 200-62.5-25 MCG/ACT inhaler Inhale 1 Dose daily. Rinse mouth/gargle after use 180 Each 3 hydrOXYzine HCl (ATARAX) 10 MG tablet Take 1 Tablet (10 mg) by mouth two times a day. Indications: Feeling Anxious ipratropium-albuterol (DUONEB) 0.5-2.5 (3) mg/3ml nebulizer solution Inhale 3 mL every 6 hours as needed for Wheezing. montelukast (SINGULAIR) 10 MG tablet TAKE 1 TABLET BY MOUTH EVERYDAY AT BEDTIME 90 Tablet 1 omeprazole (PRILOSEC) 20 MG capsule TAKE 1 CAPSULE BY MOUTH EVERY DAY 90 Capsule 3 Rutxqhum-Dhm-Rv-FA (PRE- FORMULA) Take 1 Tablet by mouth daily. semaglutide-weight management (WEGOVY) 2.4 MG/0.75ML pen injection Inject 0.75 mL (2.4 mg) subcutaneously once every week. 9 mL 3 traZODone (DESYREL) 150 MG tablet Take 1 Tablet (150 mg) by mouth daily at bedtime. (Patient takingdifferently: Take 1 Tablet (150 mg) by mouth at bedtime as needed for Sleep.) 90 Tablet 3 No current facility-administered medications for this visit. OBJECTIVE: Vital Signs: BP 113/63 (BP Location: Right Arm, BP Cuff Size: Regular) Pulse (!) 102 Temp 36.9 ??C (98.4 ??F) (Oral) Resp 16 SpO2 96% EXAM: She clearly has nasal congestion. Normal skin color. Nonobese. Tympanic membranes and external auditory canals normal, oropharynx normal, mucous membranes moist, no cervical adenopathy to palpation. She does have mild, diffuse inspiratory wheezing best heard posterior sigala. She tells me that albuterol does help. ASSESSMENT: Recurrent sinus infections, see above. PLAN: I prescribed Augmentin for 2 weeks. She will return here as needed. The patient was discharged ambulatory and in stable condition. documented in this encounter Nursing Notes * Chase Arnaldo N - 03/19/2025 10:40 AM CDT Sanam Ramos is a 44 y.o.female presents to the Urgent Care for PAIN, SINUS What cold symptoms are you experiencing?Nose/Sinus/Ear Do you have a runny nose? YES Are you sneezing? No Are you experiencing any nasal congestion? YES Are you experiencing any headaches?YES Do you have any facial or dental pain? YES Do you have any ear pain? No Do you have any eye itching or irritation? No Have you had a history of sinus infections? YES How long have you had these symptoms? 2 week(s) Have you had a fever? No Are there any treatments you have tried? YES What products have you tried? Tylenol PM Did the treatment help your symptoms? Has not changed Patient requests an excuse letter for work/school: No documented in this encounter Plan of Treatment Upcoming Encounters Date Type Department Care Team (Late st Contact Info) Description 04/05/2025 8:45 AM CDT Appointment Specialty Center [facility] [address] [place] [address]. [place], [place] [id number] Manda Chawla MD [address] [place] [address] Breathing Test, Hs Allergy 04/13/2025 3:25 PM CDT Hospital Encounter Operating Room [address] [place] [address] Roberta Snowden MD [address] [place], [place] [phone] 04/13/2025 3:25 PM CDT Anesthesia Event Operating Room [address] [place] [address] Donovan Lau MBBS [address] [place] [address] 04/13/2025 3:25 PM CDT - 04/13/2025 4:55 PM CDT Surgery Operating Room [address] [place] [address] Roberta Snowden MD [address] [place], [place] [phone] MIDURETHRAL SLING, CYSTOSCOPY 04/28/2025 1:10 PM CDT Appointment Specialty [facility] [address] [place] [phone] Tre Greenwood MD [address] [place] [address] Scheduled Procedures Name Priority Associated Diagnoses Date/Ti me CYSTOSCOPIC FORMATION MIDURETHRAL SLING JERRY (stress urinary incontinence, female) 04/13/2025 3:25 PM CDT documented as of this encounter Visit Diagnoses Diagnosis JERRY (stress urinary incontinence, female)- Primary Female stress incontinence Sinus congestion Other diseases of nasal cavity and sinuses JERRY (stress urinary incontinence, female) Female stress incontinence documented in this encounter Care Teams [facility] Nurse Relationship Specialty [place] [address] [place] [address] PCP - General Family Practice 06/26/22 documented as of this encounter
--- OUTSIDE RECORDS SUMMARY | 2025-03-19 11:30 | XMS_ITS | Encounter Summary ---
Author Organization [facility] Address [address], [place] [address] Care Team Providers Care Graphic User Interface Designer Name Role Phone Aaron Morales MD Primary Care Provider [phone] Reason for Referral * Medication Prior Authorization - Pending Review Specialty Diagnoses / Procedures Referred By Contac t Referred To Contact Diagnoses Severe persistent asthma, unspecified whether complicated ([facility]) Tre Greenwood MD [address] [place] [address] Phone: tel: fax: Referral ID Status Reason Start Date Expiration Date V isits Requested Visits Authorized [id number] Pending Review 1 1 Reason for Visit * Reason Comments MEDICATION THERAPY MANAGEMENT Encounter Details Date Type Department Care Team (Late st Contact Info) Description 03/19/2025 11:30 AM CDT Phone Visit Specialty Center Pharmacy [facility] [address] [facility] [address] [place] [address] Bre Sol, PharmD [address] [place] [address] Severe persistent asthma, unspecified whether complicated ([facility]) (Primary Dx) Social History Tobacco Use Types Packs/Day Years [...] Sex Assigned at Female 08/12/2023 11:19 AM PARTS DATA WRITER Legal Sex Female 5:45 AM CDT Gender Identity Female 08/12/2023 11:19 AM PARTS DATA WRITER Sexual Orientation Not on file 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 Here are the things we discussed: A message has been sent to your provider to see what other asthma shots we can try for you since Dupixent caused joint pain Follow up: 2-4 weeks (I will contact you when I hear back from your provider) Thank you for allowing me to participate in your healthcare and medication management. Please call the clinic or contact me via [facility] with any questions or concerns. Bre Sol PharmD, BCGP (she/her) Medication Therapy Management Pharmacist [facility] Asthma/Allergy/Pulmonology Appointment [phone] documented in this encounter Progress Notes * Bre Sol PharmD - 03/19/2025 11:30 AM CDTAddended by: BRE SOL on: 03/26/2025 04:05 PM Modules accepted: Orders * Bre Sol PharmD - 03/19/2025 11:30 AM CDT Subjective Sanam Arambulajaime is a 44 y.o. patient referred to [facility] specialty services by [facility] pulmonary seen over the phone for monitoring and follow-up. Diagnosis: Asthma/Nasal Polyps Last [facility] visit: 09/28/24 Insurance: [facility] -Asthma is acting up again and has sinus infection, stopped Dupixent about 2 months ago -Joints have greatly improved since Current Outpatient Medications (Anti-Infective Agents) Medication Sig amoxicillin-clavulanate (AUGMENTIN) 875-125 mg per tablet Take 1 Tablet by mouth two times a day for 14 days. Current Outpatient Medications (Antihistamines/Nasal Agents/Cough & Cold/Respiratory/Misc) Medication Sig albuterol 2.5 mg/3 mL, 0.083%, (PROVENTIL) nebulizer solution 1 Each (2.5 mg) by Nebulization routeevery 2 hours as needed for Wheezing or Shortness of Breath. Inhale one vial every 20 minutes up tothree times. Then every 1-4 hours as needed. ALBUterol sulfate HFA 108 (90 Base) MCG/ACT inhaler INHALE 2 PUFFS BY MOUTH EVERY 6 HOURS budesonide (PULMICORT) 0.25 MG/2ML nebulization suspension 2 mL (0.25 mg) two times a day. cetirizine (ZYRTEC) 10 MG tablet Take 1 Tablet (10 mg) by mouth daily. sfzepifhqas-amnwwdxmz-ywuivz (TRELEGY ELLIPTA) 200-62.5-25 MCG/ACT inhaler Inhale 1 Dose daily. Rinse mouth/gargle after use ipratropium-albuterol (DUONEB) 0.5-2.5 (3) mg/3ml nebulizer solution Inhale 3 mL every 6 hours as needed for Wheezing. montelukast (SINGULAIR) 10 MG tablet TAKE 1 TABLET BY MOUTH EVERYDAY AT BEDTIME Current Outpatient Medications (Gastrointestinal Agents) Medication Sig omeprazole (PRILOSEC) 20 MG capsule TAKE 1 CAPSULE BY MOUTH EVERY DAY Current Outpatient Medications (Genitourinary Antispasmodics/Vaginal Products/Misc) Medication Sig finasteride (PROSCAR) 5 MG tablet Take 1 Tablet (5 mg) by mouth daily. Current Outpatient Medications (Central Nervous System Agents) Medication Sig ARIPiprazole (ABILIFY) 5 MG tablet Take 1 Tablet (5 mg) by mouth daily. buPROPion (WELLBUTRIN XL) 300 MG 24 hour release tablet Take 1 Tablet (300 mg) by mouth daily. FLUoxetine (PROZAC) 40 MG capsule Take 1 Capsule (40 mg) by mouth daily. hydrOXYzine HCl (ATARAX) 10 MG tablet Take 1 Tablet (10 mg) by mouth two times a day. Indications: Feeling Anxious traZODone (DESYREL) 150 MG tablet Take 1 Tablet (150 mg) by mouth daily at bedtime. (Patient takingdifferently: Take 1 Tablet (150 mg) by mouth at bedtime as needed for Sleep.) Current Outpatient Medications (Nutritional Products) Medication Sig cholecalciferol (VITAMIND3) 50 MCG (2000 UT) tablet Take 1 Tablet (2,000 Units) by mouth daily. Fqcwcvnp-Xhx-Ao-FA (PRE-YU FORMULA) Take 1 Tablet by mouth daily. Current Outpatient Medications (Dermatological/Anorectal/Mouth-Throat/Dental/Ophthalmic/Otic) Medication Sig dupilumab (DUPIXENT) 300 MG/2ML prefilled syringe Inject 4 mL (600 mg) subcutaneously every 14 days. Inject 2 syringes (600mg) under the skin once, then 2 weeks later reduce to 1 pen (300mg) under the skin every 14 days thereafter Indications: Asthma (Patient not taking: Reported on 03/19/2025) Current Outpatient Medications (Other) Medication Sig semaglutide-weight management (WEGOVY) 2.4 MG/0.75ML pen injection Inject 0.75 mL (2.4 mg) subcutaneously once every week. Objective ACT Score was 01/14/2025 11:10 AM Asthma Control Test - Adult ACT Total 15 Risk Assessment 1 Date Completed (if not today): 01/14/2025 BP Readings from Last 3 Encounters: 03/19/25 113/63 08/10/24 107/69 07/02/24 116/72 Pulse Readings from Last 3 Encounters: 03/19/25 (!) 102 01/14/25 76 09/17/24 84 Lab Results Component Value Date SODIUM 138 01/08/2025 K 3.9 01/08/2025 CA 9.0 01/08/2025 BUN 14 01/08/2025 ALB 4.0 01/08/2025 HGB 15.4 12/19/2022 HGBA1C 5.5 01/08/2025 CREATININE 0.79 01/08/2025 GFR >60 01/08/2025 TSH 1.40 01/08/2025 VTD25 44 12/19/2022 Last CBC w/differential result: Lab Results Component Value Date/Time WBC 7.1 01/14/2025 12:00 PM RBC 4.98 12/19/2022 04:46 PM HGB 15.4 12/19/2022 04:46 PM HCT 43.3 12/19/2022 04:46 PM MCV 86.9 12/19/2022 04:46 PM MCH 30.9 12/19/2022 04:46 PM MCHC 35.6 (H) 12/19/2022 04:46 PM PLTS 365 12/19/2022 04:46 PM RDW 11.6 (L) 12/19/2022 04:46 PM PMN 3.5 01/14/2025 12:00 PM LYMA 2.1 01/14/2025 12:00 PM MONOA 0.3 01/14/2025 12:00 PM EOSA 1.1 (H) 01/14/2025 12:00 PM BASA 0.1 01/14/2025 12:00 PM Heart Health: As recommended by the [place] [employer], we use information about your health to estimate your risk for a heart attack or stroke. Your risk in the next 10 years is 1.6%. The information we used to estimate your risk is: Your age 44, sex, blood pressure of 113/63 mm Hg, no use of blood pressure lowering medication, total cholesterol of 172 mg/dl, HDL (good cholesterol) of 53mg/dl, no diagnosis of diabetes, tobacco or nicotine use. You can improve your heart health by doing the following in order of priority: Quit smoking/using tobacco. If you want information that can help, ask your care team. For information on self-directed lifestyle change for weight management, go to www.[facility].org Wizard?? Immunizations: Immunization status: up to date Immunization History Administered Date(s) Administered Flu Vac (3+ yrs) 06/20/2009, 07/31/2011, 06/26/2012, 10/05/2013 Flublok (RIV4) 11/12/2019 Influenza ([facility] Only) (Flulaval Quad 0.5, 3+ yrs) 06/12/2017 Influenza IIV4 (Quadrivalent) 0.5mL (65838) 07/02/2014, 09/09/2015, 08/29/2016, 06/20/2018, 11/12/2019, 06/02/2020, 07/17/2021, 06/26/2022 Influenza ccIIV3 6 months+ (Flucelvax) 08/10/2024 Moderna Monovalent 12+ 10/05/2020 PCV20 (Tyayxbs45) 08/21/2022 PPSV23 (Pneumovax) 07/17/2021 Pfizer Bivalent 12+ 08/21/2022 Pfizer Monovalent 12+ Purple Top 10/09/2021, 10/30/2021 Td 01/30/2006 Tdap 09/24/2014, 05/11/2024 Assessment 1. Asthma and Dupixent Safety - Adverse Drug Reaction: adverse reactions present Status: Resolved -Patient with asthma previously only somewhat controlled with Trelegy, montelukast, and dupilumab -Dupilumab discontinued due to joint pain and eosinophilia (600 -> 1100) -Patient remains indicated for IL inhibitor, discussed possibility of benralizumab as this medication does not have arthralgias as a reported side effect. Mepolizumab carries similar risk of joint pain so prefer to avoid. IgE last in May 2024 at 95.6 so potentially would qualify for omalizumab but c oncerned this may not provide a meaningful reduction in eosinophils Plan Message sent to provider re: alternative biologic for asthma Follow up with [facility] Pharmacist: 2-4 weeks via phone Updated [facility] med list and reviewed medications including indications with patient. Billing Requirements: Recipient of visit: Patient Medicare CI: no Clinician location:home Patient location: home Billing based on flat fee Total time spent with patient 1 - 15 min # of DTPs: 1 # of DTPs resolved: 1 * Bre Sol, MiloD - 03/19/2025 11:30 AM CDT Per chart discussion with provider, IgE within normal limits so unlikely to benefit from omalizumab. We will pursue PA approval for benralizumab. documented in this encounter Plan of Treatment Upcoming Encounters Date Type Department Care Team (Late st Contact Info) Description 04/05/2025 8:45 AM CDT Appointment Specialty Center [address] [facility] [address] [place] [address] Manda Chawla MD [address] [place] [address] Breathing Test, Hs Allergy 04/13/2025 3:25 PM CDT Hospital Encounter Operating Room [address] [place] [address] Roberta Snowden MD [address] [place] [address] 04/13/2025 3:25 PM CDT Anesthesia Event Operating Room [address] [place] [address] Donovan Lau MBBS [address] [place] [address] 04/13/2025 3:25 PM CDT - 04/13/2025 4:55 PM CDT Surgery Operating Room [address] [place] [address] Roberta Snowden MD [address] [place] [address] MIDURETHRAL SLING, CYSTOSCOPY 04/28/2025 1:10 PM CDT Appointment Specialty Center [address] [facility] [address] [place] [address] Tre Greenwood MD [address] [place] [phone] Scheduled Procedures Name Priority Associated Diagnoses Date/Ti me CYSTOSCOPIC FORMATION MIDURETHRAL SLING JERRY (stress urinary incontinence, female) 04/13/2025 3:25 PM CDT documented as of this encounter Visit Diagnoses Diagnosis JERRY (stress urinary incontinence, female)- Primary Female stress incontinence Severe persistent asthma, unspecified whether complicated (HRC)- Primary JERRY (stress urinary incontinence, female) Female stress incontinence documented in this encounter Care Teams Graphic User Interface Designer Relationship Specialty [place] [address] [place] [address] PCP - General Family Practice 06/26/22 documented as of this encounter
--- OUTSIDE RECORDS SUMMARY | 2025-03-26 13:40 | XMS_ITS | Encounter Summary ---
Author Organization [employer] Address [address], [place] [address] Care Team Providers Care Summer Child Caregiver Name Role Phone Aaron Morales MD Primary Care Provider [phone] Reason for Visit * Reason Comments ASTHMA Encounter Details Date Type Department Care Team (Late st Contact Info) Description 03/26/2025 1:40 PM CDT Office Visit [facility] [facility] [address] [place] [address] [place] [address] [place] [address] Severe persistent asthma with acute exacerbation (HRC); Nicotine abuse (HRC) Social History Tobacco Use Types Packs/Day Years [...] Sex Assigned at Female 08/12/2023 11:19 AM ROLL CLEANER Legal Sex Female 5:45 AM CDT Gender Identity Female 08/12/2023 11:19 AM ROLL CLEANER Sexual Orientation Not on file 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 Was taken off her asthma medication as it had side effects. Has been on Augmentin for the past week for a sinus infection Past Medical History: Diagnosis Date Asthma ([facility]) 2017 Caries Depression Psychiatric disorder ([facility]) Sinus trouble Subject 44 years old female presented today to clinic with concern about her asthma it is getting worse sheis unable to controlled with current inhaler nebulizer. Patient stated that is she has severe control asthma, she has history of allergy, she has nicotine abuse it, she has multiple other problem that has been reviewed with the patient in chart. She deny any fever and chills mom patient stated that is she is taking antibiotic for sinus infection started couple days ago. Patient stated that is she woke up that is night to time that is she had to use her inhaler she seepulmonologist before she stated that is her symptom are asthma nobody mentioned above or COPD. Reviewed the system above all other negative Past Medical history also as above Objective BP 121/83 (BP Location: Right Arm, BP Cuff Size: Regular) Pulse 90 Temp 36.8 ??C (98.2 ??F) (Oral) Resp 18 SpO2 95% Vital signs stable alert oriented she does not seems to be in any respiratory distress Both ear are clear, nose mucosa inflamed specially the right side nasal turbinates bulging pretty congested barely she can not breathe, oral cavity pharynx uvula with except post nasal drip no petechiae no exudate Neck no enlarged lymph Lungs mild diffuse end expiratory a wheezing in the both side Cardiac S1-S2 regular Abdomen is she deny any problem Extremity she deny any pain or any rash Assessment Asthma with acute expiration Allergies Nicotine abuse Patient receive dual neb her inspiration still there was mild wheezing butt end expiratory a wheezing completely clear when she felt better Plan I put her on prednisone she stated the last time that is she took prednisone was a year ago. She admitted when if is get to this condition she take prednisone oral pills side effect risk benefit discussed in detail with her Regarding nicotine abuse to quit smoking patient stated that is she is trying and decrease the amount that is she is smoking, she stated she was able to quit smoking with shunt text but she went backagain, patient stated she takes working for her very well. We suggest again to start take the Chantix and follow-up if worse any additional symptom to go to the emergency room she has to take asthma still very serious, otherwise see with your solid glass rod dowel machine operator she has appointment in 10 days or less. documented in this encounter Nursing Notes * Viviana Romero RN - 03/26/2025 1:40 PM CDT Notes shortness of breath and asthma exacerbation that has been progressing over the past month. Was taken off her asthma medication as it had side effects. Has been on Augmentin for the past week for a sinus infection documented in this encounter Plan of Treatment Upcoming Encounters Date Type Department Care Team (Late st Contact Info) Description 04/05/2025 8:45 AM CDT Appointment [facility] [address] [place] [address]. [place], [place] [phone] Manda Chawla MD [address] [place] [address] [phone] Breathing Test, Hs Allergy 04/13/2025 3:25 PM CDT Hospital Encounter Operating Room [address] [place] [address] Roberta Snowden MD [address] [place] [address] 04/13/2025 3:25 PM CDT Anesthesia Event [facility] Operating Room [address] [place] [address] Donovan Lau MBBS [address] [place] [address] 04/13/2025 3:25 PM CDT - 04/13/2025 4:55 PM CDT Surgery Operating Room [address] [place] [address] Roberta Snowden MD [address] [place], [place] [phone] MIDURETHRAL SLING, CYSTOSCOPY 04/28/2025 1:10 PM CDT [facility]ointment [facility] [address] [place] [phone] Tre Greenwood MD [address] [place], [place] [phone] Scheduled Procedures Name Priority Associated Diagnoses Date/Ti me CYSTOSCOPIC FORMATION MIDURETHRAL SLING JERRY (stress urinary incontinence, female) 04/13/2025 3:25 PM CDT documented as of this encounter Visit Diagnoses Diagnosis JERRY (stress urinary incontinence, female)- Primary Female stress incontinence Severe persistent asthma with acute exacerbation (HRC) Unspecified asthma, with exacerbation Nicotine abuse (HRC) Tobacco use disorder JERRY (stress urinary incontinence, female) Female stress incontinence documented in this encounter Administered Medications Inactive Administered Medications - up to 3 most recent administrations Medication Order MAR Action Action Date Dose Rate Site ipratropium-albuterol (DUONEB) 0.5-2.5 (3) mg/3ml nebulizer solution 3 mL 3 mL, Inhalation, ONCE, On Sat03/26/25 at 1415, For 1 dose, Administer VIA RT NebulizationIndications:Severe persistent asthma with acute exacerbation (HRC) Given 03/26/2025 1:58 PM CDT 3 mL documented in this encounter Care Teams Summer Child Caregiver Relationship Specialty [place] [address] [place] [address] PCP - General Family Practice 06/26/22 documented as of this encounter
[2025-03-27] VITALS (29 sets, daily range): BP systolic 106–147; BP diastolic 63–100; PULSE 85–105; RESP 13–42; TEMP 36.4–36.8; O2SAT 81–97; BMI 23.5; BMI 23.2
--- OUTSIDE RECORDS SUMMARY | 2025-03-27 10:18 | XMS_ITS | Clinical Summary ---
Author Organization [employer] Address [address] [facility] [place] [address] Care Team Providers Care Binitrotoluene Operator Name Role Phone Sulma Andrews DO Primary Care Provider [phone] Clinic, [facility] [place] Unavailable [phone] Allergies Active Allergy Reactions Criticality Noted Date Comments Ibuprofen Shortness Of Breath, Nausea and Vomiting High 04/18/2018 Levofloxacin Other (See Comments) 04/21/2018 Jaw pain No Known Drug Allergy 11/15/2004 Seasonal Allergies 06/18/2020 Medications * This document contains information received from the source organization and may not represent a complete record from that organization. albuterol (PROAIR HFA/PROVENTIL HFA/VENTOLIN HFA) 108 (90 Base) MCG/ACT inhaler Inhale 2 puffs into the lungs every 6 hours as needed for shortness of breath, wheezing or cough Active montelukast (SINGULAIR) 10 MG tabletIndicatio ns:Asthma Take 10 mg by mouth At Bedtime Active cetirizine (ZYRTEC) 10 MG tabletIndicatio ns:Seasonal Allergic Rhinitis Take 10 mg by mouth daily Active busPIRone HCl (BUSPAR) 30 MG tablet Take 30 mg by mouth 2 times daily 2 Active Fluticasone-Ume clidin-Vilanter ol (TRELEGY ELLIPTA) 200-62.5-25 MCG/ACT oral inhaler Inhale 1 puff into the lungs daily 3 Active omeprazole (PRILOSEC) [address] capsule Take 20 mg by mouth daily 3 Active FLUoxetine (PROZAC) 40 MG capsule Take 40 mg by mouth daily Takes with 20mg capsule to total 60mg daily. 3 Active FLUoxetine (PROZAC) 20 MG capsule Take 20 mg by mouth daily Takes with 40mg capsules to total 60mg daily. Active fluticasone (FLONASE) 50 MCG/ACT nasal spray [place] 1 spray into both nostrils daily Active buPROPion 450 MG [id number] :Major depressive disorder, recurrent episode, moderate (H) Take 450 mg by mouth every morning 30 tablet 1 3 Active traZODone (DESYREL) 150 MG tabletIndicatio ns:Primary insomnia Take 1 tablet (150 mg) by mouth nightly as needed for sleep 30 tablet 3 Active ARIPiprazole (ABILIFY) 2 MG tabletIndicatio ns:Major depressive disorder, recurrent episode, moderate (H) Take 1 tablet (2 mg) by mouth daily 30 tablet 1 3 Active hydrOXYzine (ATARAX) 25 MG tabletIndicatio ns:Anxiety Take 1 tablet (25 mg) by mouth every 4 hours as needed for anxiety 3 Active Active Problems Problem Noted Date Diagnosed Date Depression 07/26/2023 Major depressive disorder, recurrent episode, mo derate 07/25/2023 MDD (major depressive disord er), recurrent severe, without psychosis 06/23/2020 Depression with suicidal ideation 06/18/2020 Family History Medical History Relation Comments Substance Abuse Brother Family History Negative Other Depression Sister Relation Status Comments Brother Alive Father Alive age 50 Mother Alive age 52 Other Sister Alive Social History Tobacco Use Types Packs/Day Years Used Date Smoking Tobacco: Never Cigarettes Qu it: 12/09/2004 Smokeless Tobacco: Never Alcohol Use Standard Drinks/Week Comments Yes 0 (1 standard drink = 0.6 oz pur e alcohol) abstained since 11/12/04 AUDIT-C Answer Date Recorded Q1: How often do you have a drink containing alcohol? Never 07/26/2023 Q2: How many drinks containi ng alcohol do you have on a typical day when you are drinking? Patient does not drink Q3: How often do you have si x or more drinks on one occasion? 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 Not on file Not on file Not on file Not on file Not on file Last Filed Vital Signs Vital Sign Reading Time Taken Comments Blood Pressure 108/71 07/30/2023 7:00 AM CDT Pulse 80 07/30/2023 7:00 AM CDT Temperature 36.6 C (97.9 F) 07/30/2023 7:00 AM CDT Respiratory Rate 16 07/26/2023 6:40 AM CDT Oxygen Saturation 93% 07/30/2023 7:00 AM CDT Inhaled Oxygen Concentration - - Weight 71.3 kg (157 lb 3.2 oz) 07/30/2023 7:00 A M CDT Height 167.6 cm (5' 6) 06/18/2020 10:17 AM CDT Body Mass Index 25.37 06/18/2020 10:17 AM CDT Plan of Treatment Health Maintenance Due Date Last Done Comments ADVANCE CARE PLANNING 1982 ANNUAL REVIEW OF HM ORDERS 1982 DEPRESSION ACTION PLAN 1982 HIV SCREENING 1997 HEPATITIS C SCREENING 2000 HEPATITIS B VACCINE (1 of 3 - 19+ 3-dose series) 2001 PAP 12/15/2007 12/14/2004 MAMMO SCREENING 09/13/2017 09/13/2015 PHQ-9 01/03/2021 07/06/2020, 06/07, 06/20/2020 YEARLY PREVENTIVE VISIT 07/17/2022 07/17/2021, 06/30 LIPID 2022 COVID-19 VACCINE ( season) 2024 08/21/2022, 10/30/2021, 10/09/2021, Additional history exists DTAP/TDAP/TD VACCINE (3 - Td or Tdap) 09/24/2024 09/24/2014, 01/30/2006 INFLUENZA VACCINE (Season Ended) 2025 06/26/2022, 07/17/2021, 06/02/2020, Additional history exists DIABETES SCREENING 07/25/2026 07/25/2023, 0 06/19/2020, 06/18/2020, Additional history exists ZOSTER VACCINE (1 of 2) 2032 PNEUMOCOCCAL VACCINE: PEDIATRICS (0 to 5 YEARS) AND AT-RISK PATIENTS (6 to 49 YEARS) Aged Out 08/21/2022, 07/17/2021 No longer eligibl e based on patient's age to complete this topic HPV VACCINE Aged Out No longer eligi ble based on patient's age to complete this topic MENINGITIS VACCINE Aged Out No longer eligible based on patient's age to complete this topic Procedures Procedure Name Priority Date/Time Associated Diagnosis Comments COMPREHENSIVE METABOLIC PANEL STAT 07/25/2023 9:58 PM CDT HCL PAP THIN LAYER DIAGNOSTIC Routine 12/14/2004 12:00 AM EXHIBIT SPECIALIST Supervis Normal 1st Preg from Last 3 Months or Most Recently Relevant to Health Maintenance Results * (ABNORMAL) Comprehensive metabolic panel (07/25/2023 9:58 PM CDT) Sodium 138 135 - 145 mmol/L 07/25/2023 10:47 PM CDT [facility] Comment:Reference intervals for this test were updated on 07/02/2023 to more accurately reflect our healthy population. There may be differences in the flagging of prior results with similar values performed with this method. Interpretation of those prior results can be made in the context of the updated reference intervals. Potassium 3.5 3.4 - 5.3 mmol/L 07/25/2023 10:47 PM CDT [facility] Carbon Dioxide (CO2) 23 22 - 29 mmol/L 07/25/2023 10:47 PM CDT [facility] Anion Gap 11 7 - 15 mmol/L 07/25/2023 10:47 PM CDT [facility] Urea Nitrogen 11.3 6.0 - 20.0 mg/dL 07/25/2023 10:47 PM CDT [facility] Creatinine 0.93 0.51 - 0.95 mg/dL 07/25/2023 10:47 PM CDT [facility] GFR Estimate 79 >60 mL/min/1. 73m2 07/25/2023 10:47 PM CDT [facility] Calcium 9.2 8.6 - 10.0 mg/dL 07/25/2023 10:47 PM CDT [facility] Chloride 104 98 - 107 mmol/L 07/25/2023 10:47 PM CDT [facility] Glucose 100(H) 70 - 99 mg/dL 07/25/2023 10:47 PM CDT [facility] Alkaline Phosphatase 60 35 - 104 U/L 07/25/2023 10:47 PM CDT [facility] AST 17 0 - 45 U/L 07/25/2023 10:47 PM CDT [facility] Comment:Reference intervals for this test were updated on 03/18/2023 to more accurately reflect our healthy population. There may be differences in the flagging of prior results with similar values performed with this method. Interpretation of those prior results can be made in the context of the updated reference intervals. ALT 15 0 - 50 U/L 07/25/2023 10:47 PM CDT [facility] Comment:Reference intervals for this test were updated on 03/18/2023 to more accurately reflect our healthy population. There may be differences in the flagging of prior results with similar values performed with this method. Interpretation of those prior results can be made in the context of the updated reference intervals. Protein Total 6.3(L) 6.4 - 8.3 g/dL 07/25/2023 10:47 PM CDT [facility] Albumin 3.9 3.5 - 5.2 g/dL 07/25/2023 10:47 PM CDT [facility] Bilirubin Total 0.4 <=1.2 mg/dL 07/25/2023 10:47 PM CDT [facility] Blood STRUCTURE OF LEFT UPPER LIMB / Unknown Venipuncture / Unknown 07/25/2023 9:58 PM CDT 07/25/2023 10:21 PM CDT us Vito Encarnacion MD LAB - BLOOD ORDERABLES Final Result [facility] [address] [facility] Lab (1st floor, no room number) [place] [address], [facility] [phone] * A THIN LAYER, DIAGNOSTIC PAP (12/14/2004 12:00 AM EXHIBIT SPECIALIST) Copath Report Patient Name: ZOILA DEUTSCH MR#: [id number] Specimen #: [id number] Collected: 12/14/2004 Received: 12/15/2004 Reported: 12/22/2004 16:40 Ordering Phy(s): MANDA DOMINGUEZ SPECIMEN/STAIN PROCESS: Pap thin layer prep diagnostic Pap-Cyto x 1, Reflex HPV x 1 SOURCE: Cervical, endocervical Pap thin layer prep diagnostic SPECIMEN ADEQUACY: Satisfactory for evaluation. -Transitional zone component present. CYTOLOGIC INTERPRETATION: Epithelial Cell Abnormality: Squamous Cell: Low-grade squamous intraepithelial lesion (LSIL) encompassing: HPV/ mild dysplasia/ [place] 1. Electronically signed out by: Yovany Cohen M.D. Processed and screened at [facility] CLINICAL HISTORY: LMP: 1-2-05 , Previous abnormal pap: LGSIL Date of Last Pap: 10-11, Cryotherapy, COPATH 12/14/2004 12/15/2004 1:5 7 PM EXHIBIT SPECIALIST us Manda Dominguez MD LABORATORY Final R esult COPATH from Last 3 Months or Most Recently Relevant to Health Maintenance [facility] [id number] [place] [id number] [facility]elliGeneScanGILA REGIONAL MEDICAL CENTERWinkcam Advance Directives For more information, please contact: [phone] * Full Code (Latest Code Status on File) Date Activated Date Inactivated Comments 07/26/2023 9:01 AM 07/30/2023 6:33 PM All basic and advanced life-sustaining interventions are performed as appropriate Question Answer Comments Code status determined by: Discussion with cruz nt/ legal decision maker * Full Code Date Activated Date Inactivated Comments 06/18/2020 11:10 AM 06/20/2020 5:50 PM All basic a nd advanced life-sustaining interventions are performed as appropriate Question Answer Comments Code status determined by: Discussion with cruz nt/ legal decision maker Care Teams Binitrotoluene Operator Relationship Specialty Start Date End Date Sulma Andrews DO PCP - General Family Practice 06/16/20 [place], [facility] [address] [place] [address] 06/16/20
--- OUTSIDE RECORDS SUMMARY | 2025-03-27 10:18 | XMS_ITS | Encounter Summary ---
Author Organization [facility] Address [address], [place] [address] Care Team Providers Care Outreach And Education Social Worker Name Role Phone Aaron Morales MD Primary Care Provider [phone] Encounter Details Date Type Department Care Team (Late st Contact Info) Description 09/29/2024 Specialty Pharmacy [facility] [address] [place] [address] Antonio Cruz, PharmD Social History Tobacco Use Types Packs/Day Years [...] Sex Assigned at Female 08/12/2023 11:19 AM PARAMEDICAL AIDE Legal Sex Female 5:45 AM CDT Gender Identity Female 08/12/2023 11:19 AM PARAMEDICAL AIDE Sexual Orientation Not on file 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 [place] [address] Manda Chawla MD [address] [place] [phone] Breathing Test, Hs Allergy 04/13/2025 3:25 PM CDT Hospital Encounter Operating Room [address] [place] [address] Roberta Snowden MD [address] [place], [place] [phone] 04/13/2025 3:25 PM CDT Anesthesia Event Operating Room [address] [place] [address] Donovan Lau MBBS [address] [place] [address] 04/13/2025 3:25 PM CDT - 04/13/2025 4:55 PM CDT Surgery Operating Room [address] [place] [address] Roberta Snowden MD [address] [place], [place] [phone] MIDURETHRAL SLING, CYSTOSCOPY 04/28/2025 1:10 PM CDT Appointment [facility] [address] [place] [address] [phone] Tre Greenwood MD [address] [place] [address] [phone] Scheduled Procedures Name Priority Associated Diagnoses Date/Ti me CYSTOSCOPIC FORMATION MIDURETHRAL SLING JERRY (stress urinary incontinence, female) 04/13/2025 3:25 PM CDT documented as of this encounter Visit Diagnoses Not on filedocumented in this encounter Care Teams Outreach And Education Social Worker Relationship Specialty [place] [address] [place] [address] PCP - General Family Practice 06/26/22 documented as of this encounter
--- OUTSIDE RECORDS SUMMARY | 2025-03-27 10:18 | XMS_ITS | Encounter Summary ---
Author Organization [facility] Address [address], [place] [address] Care Team Providers Care Video Specialist Name Role Phone Aaron Morales MD Primary Care Provider [phone] Encounter Details Date Type Department Care Team (Late Contact Info) Description 03/26/2025 Specialty Pharmacy [facility] [address] [place] [address] Clif Ayala, PharmD Social History Tobacco Use Types Packs/Day [...] Sex Assigned at Female 08/12/2023 11:19 AM NICKEL PLANT OPERATOR Legal Sex Female 5:45 AM CDT Gender Identity Female 08/12/2023 11:19 AM NICKEL PLANT OPERATOR Sexual Orientation Not on file 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 [place], [place] [phone] Manda Chawla MD [address] [place] [phone] Breathing Test, Hs Allergy 04/13/2025 3:25 PM CDT Hospital Encounter Operating Room [address] [place] [address] Roberta Snowden MD [address] [place], [place] [phone] 04/13/2025 3:25 PM CDT Anesthesia Event Operating Room [address] [place] [address] Donovan Lau MBBS [address] [place] [address] 04/13/2025 3:25 PM CDT - 04/13/2025 4:55 PM CDT Surgery Operating Room [address] [place] [address] Roberta Snowden MD [address] [place], [place] [phone] MIDURETHRAL SLING, CYSTOSCOPY 04/28/2025 1:10 PM CDT Appointment [facility] [address] [place] [phone] Tre Greenwood MD [address] [place] [address] [phone] Scheduled Procedures Name Priority Associated Diagnoses Date/Ti me CYSTOSCOPIC FORMATION MIDURETHRAL SLING JERRY (stress urinary incontinence, female) 04/13/2025 3:25 PM CDT documented as of this encounter Visit Diagnoses Not on filedocumented in this encounter Care Teams Video Specialist Relationship Specialty [place] [address] [place] [address] PCP - General Family Practice 06/26/22 documented as of this encounter
--- OUTSIDE RECORDS SUMMARY | 2025-03-27 10:18 | XMS_ITS | Encounter Summary ---
Author Organization [place] Address [address] [facility] [place] [address] Care Team Providers Care Clear Coat Sprayer Name Role Phone Sulma Andrews DO Primary Care Provider [phone] Clinic, Iveth Cortes Unavailable [phone] Encounter Details Date Type Department Care Team (Late st Contact Info) Description 06/21/2020 [facility] Treatment Plan [facility] [place] [address] [address] [place] [address] Mo Garcia MD PSYCHIATRIC RECOVERY [address] [facility] [address] [place], [place] [id number] Shereen Jones, [facility] [address] [place] [address] MDD (major depressive disorder), recurrent severe, without psychosis (H) Social History Tobacco Use Types Packs/Day Years Used Date Smoking Tobacco: Never Cigarettes Qu it: 12/09/2004 Smokeless Tobacco: Never Alcohol Use Standard Drinks/Week Comments Yes 0 (1 standard drink = 0.6 oz pur e alcohol) abstained since 11/12/04 PHQ-2 Answer Date Recorded PHQ-2 Score 6 06/22/2020 Comments No Sex and Gender Information Value Date Recorded Sex Assigned at Female 06/23/2020 8:54 AM CDT Legal Sex Female 4:36 AM CASH CLERK Gender Identity Female 06/23/2020 8:54 AM CDT Sexual Orientation Bisexual 06/23/2020 8: 54 AM CDT 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 No / Unsure 06/18/2020 9:48 AM CDT documented as of this encounter Progress Notes * Libby Freedman LICSW - 06/21/2020 10:35 AM CDT Admission Date: 06/22/2020 Identify any current concerns with potential impact to admission: medication/medical concerns: none immediate safety concerns:no Does patient have safety plan? yes Note: Please copy safety plan copied into BEH Encounter Other (insurance/childcare/transportation/housing/planned absences/etc): none Patient's insurance is: [employer] . Does patient need appointment with provider? yes If patient has Medical Assistance (MA) is LOCUS and Functional Assessment completed? na If patient is in Partial Hospitalization Program is LOCUS completed? yes Completed by: YESSI Carmona documented in this encounter Plan of Treatment Not on file documented as of this encounter Visit Diagnoses Diagnosis MDD (major depressive disorder), recurrent severe, without psychosis (H) Major depressive disorder, recurrent episode, severe, without mention of psychotic behavior documented in this encounter Additional Health Concerns Assessment Noted Time PHQ-9 Depression Total Score: 20 020 7:16 AM CDT documented as of this encounter Care Teams Clear Coat Sprayer Relationship Specialty Start Date End Date Sulma Andrews DO PCP - General Family Practice 06/16/20 [place], Iveth Cortes [address] [place] [address] 06/16/20 documented as of this encounter
--- OUTSIDE RECORDS SUMMARY | 2025-03-27 10:18 | XMS_ITS | Encounter Summary ---
Author Organization [employer] Address [address] [address] Care Team Providers Care Ext Js Developer Name Role Phone Aaron Morales MD Primary Care Provider [phone] Encounter Details Date Type Department Care Team (Late st Contact Info) Description 01/20/2025 Results Follow-Up [facility] [address] [place] [address] Tre Greenwood MD [address] [place] [address] Social History Tobacco Use Types Packs/Day Years [...] Sex Assigned at Female 08/12/2023 11:19 AM CDS SALES ADVISOR Legal Sex Female 5:45 AM CDT Gender Identity Female 08/12/2023 11:19 AM CDS SALES ADVISOR Sexual Orientation Not on file 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 [place], [place] [phone] Manda Chawla MD [address] [place] [phone] Breathing Test, Hs Allergy 04/13/2025 3:25 PM CDT Hospital Encounter Operating Room [address] [place] [address] Roberta Snowden MD [address] [place], [place] [phone] 04/13/2025 3:25 PM CDT Anesthesia Event Operating Room [address] [place] [address] Donovan Lau MBBS [address] [place] [address] 04/13/2025 3:25 PM CDT - 04/13/2025 4:55 PM CDT Surgery Operating Room [address] [place] [address] Roberta Snowden MD [address] [place], [place] [phone] MIDURETHRAL SLING, CYSTOSCOPY 04/28/2025 1:10 PM CDT Appointment Specialty Center 401 [facility] [address] [place] [address]. [place], [place] [phone] Tre Greenwood MD [address] [place] [phone] Scheduled Procedures Name Priority Associated Diagnoses Date/Ti me CYSTOSCOPIC FORMATION MIDURETHRAL SLING JERRY (stress urinary incontinence, female) 04/13/2025 3:25 PM CDT documented as of this encounter Visit Diagnoses Not on filedocumented in this encounter Care Teams Ext Js Developer Relationship Specialty [place] [address] [place] [address] PCP - General Family Practice 06/26/22 documented as of this encounter
--- OUTSIDE RECORDS SUMMARY | 2025-03-27 10:18 | XMS_ITS | Encounter Summary ---
Author Organization [employer] Address [address] [address] Care Team Providers Care Forest Law And Policy Professor Name Role Phone Aaron Morales MD Primary Care Provider [phone] Encounter Details Date Type Department Care Team (Late st Contact Info) Description 01/12/2025 Results Follow-Up [place] [address] Family Medicine [address] [place] [address] [place] [address] [place] [address] Social History Tobacco Use Types Packs/Day Years [...] Sex Assigned at Female 08/12/2023 11:19 AM INPATIENT PHARMACIST Legal Sex Female 5:45 AM CDT Gender Identity Female 08/12/2023 11:19 AM INPATIENT PHARMACIST Sexual Orientation Not on file 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 [place], [place] [phone] Manda Chawla MD [address] [place] [phone] Breathing Test, Hs Allergy 04/13/2025 3:25 PM CDT Hospital Encounter Operating Room [address] [place] [address] Roberta Snowden MD [address] [place], [place] [phone] 04/13/2025 3:25 PM CDT Anesthesia Event Operating Room [address] [place] [address] Donovan Lau MBBS [address] [place] [address] 04/13/2025 3:25 PM CDT - 04/13/2025 4:55 PM CDT Surgery Operating Room [address] [place] [address] Roberta Snowden MD [address] [place], [place] [phone] MIDURETHRAL SLING, CYSTOSCOPY 04/28/2025 1:10 PM CDT Appointment Specialty Center [facility] [address] [place] [phone] Tre Greenwood MD [address] [place] [phone] Scheduled Procedures Name Priority Associated Diagnoses Date/Ti me CYSTOSCOPIC FORMATION MIDURETHRAL SLING JERRY (stress urinary incontinence, female) 04/13/2025 3:25 PM CDT documented as of this encounter Visit Diagnoses Not on filedocumented in this encounter Care Teams Forest Law And Policy Professor Relationship Specialty [place] [address] [place] [address] PCP - General Family Practice 06/26/22 documented as of this encounter
--- OUTSIDE RECORDS SUMMARY | 2025-03-27 10:19 | XMS_ITS | Clinical Summary ---
Author Organization [employer] Address [address] [place] [address] Care Team Providers Care Flume Worker Name Role Phone Sulma Andrews DO Unavailable Pcp, No Primary Care Provider Unavailabl e Allergies Active Allergy Reactions Criticality Noted Date Comments Stcfqgh-Asblbidnjudda-Winmo ine Dyspnea 07/12/2022 Ibuprofen Nausea And Vomiting,Dyspnea 04/18/2018 Levofloxacin Other - Describe In Comment Field 04/21/2018 Jaw pain Medications NebulizerIndicati ons:DE [place] (dyspnea on exertion),Chronic cough Nebulizer, disposable neb kit x 4, reuseable neb kit x 1, mask x 1, filters x 1. 1 Device 8 Active fluticasone (50 mcg per actuation) nasal solution (FLONASE)Indicati ons:PND (post-nasal drip) Inhale 1 [place] in the nostril(s) once daily. 1 Bottle 5 8 Active cetirizine (ZYRTEC) 10 mg tablet Take 1 tablet by mouth once daily. 0 0 Active FLUoxetine (PROZAC) 40 mg capsule TAKE 1 CAPSULE BY MOUTH 1 TIME PER DAY TAKE WITH 20MG CAP 60MG 0 Active FLUoxetine (PROZAC) 20 mg capsule Take 1 Capsule (20 mg) by mouth every morning. With 40 mg capsule for total of 60mg. 0 1 Active triamcinolone 0.1% TOPICAL (KENALOG) 0.1 % lotionIndications :Urticaria APPLY TO AFFECTED AREA TWICE A DAY 60 mL 2 1 Active clonazePAM (KLONOPIN) 0.5 mg tablet Take 0.5 mg by mouth once daily. 1 Active fluticasone fur-umeclidinium- vilanterol (Trelegy Ellipta) 100-62.5-25 mcg inhalerIndication s:Severe persistent asthma with acute exacerbation (HC) Inhale 1 Puff by mouth once daily. 3 Each 3 1 Active albuterol-ipratro pium (DUONEB) (2.5-0.5 mg) in 3 mL NEBULIZATION solutionIndicatio ns:Severe persistent asthma with acute exacerbation (HC) Inhale 3 mL via a nebulizer every 6 hours if needed. For cough/shortnes s of breath 600 mL 3 1 Active albuterol HFA (PRO-AIR; VENTOLIN; PROVENTIL) 90 mcg/actuation inhalerIndication s:Severe persistent asthma with acute exacerbation (HC) Inhale 1-2 Puffs by mouth every 4 hours if needed. 18 g 2 1 Active budesonide (PULMICORT RESPULES) 0.25 mg/2 mL neb suspensionIndicat ions:Severe persistent asthma with acute exacerbation (HC) Inhale 2 mL (0.25 mg) via a nebulizer 2 times daily. 450 mL 3 1 Active buPROPion (WELLBUTRIN XL) 300 mg Extended-Release tabletIndications :Moderate recurrent major depression (HC) Take 1 Tablet (300 mg) by mouth once daily. 30 Tablet 1 Active busPIRone (BUSPAR) 15 mg tablet Take 2 Tablets (30 mg) by mouth 2 times daily. 0 1 Active traZODone (DESYREL) 100 mg tablet Take 2 Tablets (200 mg) by mouth at bedtime. 0 1 Active omeprazole (PRILOSEC) 20 mg Delayed-Release capsuleIndication s:Gastroesophagea l reflux disease, unspecified whether esophagitis present Take 1 Capsule (20 mg) by mouth once daily before a meal. 90 Capsule 3 1 Active montelukast (SINGULAIR) 10 mg tabletIndications :Allergic rhinitis, unspecified seasonality, unspecified trigger TAKE 1 TABLET BY MOUTH EVERYDAY AT BEDTIME 90 Tablet 3 1 Active fluconazole (DIFLUCAN) 150 mg tabletIndications :Rhinosinusitis Take 1 tablet by mouth once. May repeat in 3 days if needed. 2 Tablet 2 Active cyclobenzaprine (FLEXERIL) 10 mg tabletIndications :Upper back pain on left side Take 1 Tablet (10 mg) by mouth 3 times daily if needed for Muscle Spasm. 30 Tablet 2 Active NebulizerIndicati ons:Severe persistent asthma with acute exacerbation (HC) Nebulizer, disposable neb kit x 4, reuseable neb kit x 1, mask x 1, filters x 1. Frequency of use: daily; Medication: DuoNeb, pulmicort 1 Each 2 Active Active Problems Problem Noted Date Diagnosed Date Suicide attempt 10/16/2021 Perimenopause 07/18/2021 Severe persistent asthma 03/20/2019 Prediabetes 09/05/2018 Vitamin D deficiency 09/05/2018 Dyslipidemia 09/05/2018 Asthma exacerbation 07/09/2018 Stress incontinence of urine 04/22/2018 Overview (04/22/2018): Added automatically from request for surgery [id number] Shortness of breath 12/21/2017 Cough x 6 months 12/21/2017 Cervical lymphadenopathy 12/21/2017 Issue of repeat prescription 06/29/2017 Overview (06/29/2017): ADHD. Adderall XR 20mg daily #30 and Adderall 5mg #30 if needed in afternoon. [facility]. CSA 06/2017. Dr. Andrews. Toxassure at next visit FHx: rheumatoid arthritis 03/31/2014 Attention deficit disorder without mention of hy peractivity 12/24/2011 Moderate recurrent major depression 03/29/2011 Psoriasis 10/25/2009 Generalized anxiety disorder 09/23/2009 Allergic rhinitis, cause unspecified 01/17/2009 Moderate dysplasia of cervix 10/07/2003 Overview (09/16/2018): 2003 colp, cryotherapy of cervix 09/04/18 NIL/HPV negative ASCCP recommends: History of CIN2 - CIN3: Pap and HPV every 3 years for 20 years. 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 Outcome of delivery, single liveborn 04/26/2007 06/08/2007 Depressive disorder, not elsewhere classified 11/05/19 07 03/29/2011 Adjustment disorder with mix ed anxiety and depressed mood 11/01/2006 03/29/2011 Supervision of other normal 10/24/2006 06/08/2007 Immunizations Immunization Administration Dates Next Due AMB Influenza, IIV3 (Age >=3 years)(Flu Clinic Only) 06/26/2012,07/31/2011 COVID-19 vaccine (Moderna 100mcg/0.5mL) PF, MDV 10/05/2020 Influenza, IIV3 (Age >=3 years) 10/05/2013,06/20 Influenza, IIV4 07/17/2021, 0,11/12/2019,2017,08/29/2016,09/09/2015,07/02/2014 Influenza, IIV4 (=>6mos) MDV 06/12/2017 Pneumococcal Poly,23-Valent (Pneumovax) 07/17/2021 Td (Age >=7 Years) 01/30/2006 Tdap 09/24/2014 Family History Medical History Relation Name Comments Asthma Brother 2 Good Health Daughter 2 Good Health Father Cancer Maternal Grandfather Cancer-colon Maternal Grandfather Good Health Maternal Grandmother Good Health Mother Cancer-breast Paternal Aunt x3 Good Health Paternal Grandfather Unknown Paternal Grandmother Good Health Sister 2 Anesthesia Problem No Family History Cancer-ovarian No Family History Cancer-prostate No Family History Clotting disorder No Family History Heart attack No Family History Stroke No Family History Uterine cancer No Family History Relation Name Status Comments Brother 1 Alive Brother 2 Daughter 1 Alive Daughter 2 Father Alive Maternal Grandfather Maternal Grandmother Alive Mother Alive Paternal Aunt Paternal Grandfather Alive Paternal Grandmother Sister 1 Alive Sister 2 Social History Tobacco Use Types Packs/Day Years Used Date Smoking Tobacco: Former Cigarettes 0.5 24.1 1 996 - 11/26/2019 Smokeless Tobacco: Never Tobacco Cessation:Counseling Given: Yes Alcohol Use Standard Drinks/Week Comments Not Currently 1 (1 standard drink = 0.6 oz pur e alcohol) PHQ-2 Answer Date Recorded PHQ-2 TOTAL SCORE 2 07/17/2021 Social Connections Answer Date Recorded Frequency of Communication with Friends and Fami ly Not on file 10/07/2021 Financial Resource Strain Answer Date R ecorded Difficulty of Paying Living Expenses Not on file 10/07/2021 Difficulty of Paying Living Expenses Not on file 10/07/2021 Comments No Sex and Gender Information Value Date Recorded Sex Assigned at Not on file Legal Sex Female 5:39 AM LOTTERIES AGENT Gender Identity Not on file Sexual Orientation Not on file 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 spontaneous labor 1 day later 2006 Term 40w 0d M Vag Epidur al Livin g [facility] Delivery Location:[place] Last Filed Vital Signs Vital Sign Reading Time Taken Comments Blood Pressure 132/64 07/12/2022 11:45 PM CDT Pulse 92 07/12/2022 11:45 PM CDT Temperature 37 C (98.6 F) 12/03/2021 6:03 PM LOTTERIES AGENT Respiratory Rate 24 07/12/2022 10:08 PM CDT Oxygen Saturation 95% 07/12/2022 11:45 PM CDT Inhaled Oxygen Concentration - - Weight 89 kg (196 lb 4.8 oz) 07/12/2022 9:31 PM CDT Height 167.6 cm (5' 6) 07/12/2022 9:31 PM CDT Body Mass Index 31.68 07/12/2022 9:31 PM CDT Plan of Treatment Health Maintenance Due Date Last Done Comments Hepatitis B series for 19+ ( 1 of 3 - 19+ 3-dose series) 2001 Pap test for age 21-65 09/04/2021 8, 09/04/2018, 09/09/2015, Additional history exists Depression screening for age 12+ 07/17/2022 07/17/2021, 08/29/2020, 07/25/2020, Additional history exists Pneumococcal series for age 6-49 (2 of 2 - PCV) 07/17/2022 07/17/2021 BMI (ht and wt on same day) for age 18+ 12/03/2022 12/03/2021, 11/14/2021, 07/17/2021, Additional history exists COVID-19 vaccine series (2023- season) 2024 08/21/2022, 10/30/2021, 10/09/2021, Additional history exists Tetanus booster 09/24/2024 09/24/2014, 01/30/2006 Influenza Vaccine (Season Ended) 2025 07/17/2021, 06/02/2020, 11/12/2019, Additional history exists Tdap Completed 09/24/2014 HIV for age 15-65 Completed 12/17/2014, 05/11/2010 Hepatitis C screening for ag e 18-79 Completed 11/06/2017, 12/17/2014, 05/11/2010 Procedures Procedure Name Priority Date/Time Associated Diagnosis Comments STONE AND PLATE PREPARER APPRENTICE THIN PREP PAP SCREEN IMAGED Routine 09/04/2018 1:32 PM LOTTERIES AGENT Screening for cervical cancer ANTI HCV Routine 11/06/2017 1:40 PM LOTTERIES AGENT Exposure to hepatitis C RAPID HIV SCREEN STAT 12/17/2014 8:25 PM CDT from Last 3 Months or Most Recently Relevant to Health Maintenance Results * STONE AND PLATE PREPARER APPRENTICE THIN PREP PAP SCREEN IMAGED (09/04/2018 1:32 PM LOTTERIES AGENT) Case Report Gynecologic Cytology Report Case: [id number] Authorizing Provider: Sulma Andrews DO Collected: 09/04/2018 1332 Ordering Location: [facility] Received: 09/04/2018 1416 Clinic First Screen: Wilman Sullivan Specimen: STONE AND PLATE PREPARER APPRENTICE ThinPrep Vial Screening, Cervical 09/14/2018 9:42 AM LOTTERIES AGENT [facility] INTERPRETATION /RESULT NEGATIVE FOR INTRAEPITHELIAL LESION OR MALIGNANCY (NIL) (none) 09/14/2018 9:42 AM LOTTERIES AGENT [facility] ENTR[facility] at 0942 LOTTERIES AGENT SPECIMEN ADEQUACY Satisfactory for evaluation Endocervical component present Scant cellularity 09/14/2018 9:42 AM LOTTERIES AGENT [facility] ENTRAL LABORATORY HPV REQUEST HPV and PAP 09/14/2018 9:42 AM LOTTERIES AGENT [facility] Date of LMP hormonally surpressed 09/14/2018 9:42 AM LOTTERIES AGENT [facility] Last Pap Date 09/09/15 09/14/2018 9:42 AM LOTTERIES AGENT [facility] Last Pap Result NIL 09/14/2018 9:42 AM LOTTERIES AGENT [facility] Abnormal Pap or [place] Bx in last 5 years No 09/14/2018 9:42 AM LOTTERIES AGENT [facility] Menstrual Status Irregular Periods 09/14/2018 9:42 AM LOTTERIES AGENT [facility] [place] Bx Done Today No 09/14/2018 9:42 AM LOTTERIES AGENT [facility] Additional Information None given 09/14/2018 9:42 AM LOTTERIES AGENT [facility] Automated Review Failed 09/14/2018 9:42 AM LOTTERIES AGENT [facility] Comment:Processing failed, m anual screening required. ThinPrep Imaging System, [employer] ANCILLARY TESTING STONE AND PLATE PREPARER APPRENTICE HPV Ordered, Please see separate report 09/14/2018 9:42 AM LOTTERIES AGENT [facility] Note The pap test is a screening technique, not a diagnostic procedure. It is used primarily to screen for squamous cancers and precursor lesions. Published studies have shown that it is subject to both false negative and false positive results. The pap test should not be used as the sole means to diagnose or exclude pre-malignant and malignant lesions. Cytology is screened and interpreted at [facility], Central Laboratory - [address], [place] [address] and [facility] - [address] [place] [address]; [place] [address] and [facility] - [address]; [place] [address] and [facility] [address]; [place] [address] 09/14/2018 9:42 AM LOTTERIES AGENT [facility] ENTRAL LABORATORY Other (Cervical) Non-Blood / Unknown 09/04/2018 1:32 PM LOTTERIES AGENT 09/04/2018 2:16 PM LOTTERIES AGENT Sulma Andrews DO PATHOLOGY/CYTOLOGY Final Re sult [facility] [address] [place] [address], [place] * ANTI HCV (11/06/2017 1:40 PM LOTTERIES AGENT) HEPATITIS C ANTIBODY Non-Reacti ve Non-Reacti ve 11/06/2017 7:23 PM LOTTERIES AGENT [facility] TRAL LAB[facility]ORY Blood BLOOD SPECIMEN / Unknown Venipuncture / Unknown 11/06/2017 1:40 PM LOTTERIES AGENT 11/06/2017 1:40 PM LOTTERIES AGENT Narrative [facility] - 11/06/2017 7:23 PM LOTTERIES AGENT Antibodies to HCV not detected; does not exclude the possibility of exposure to HCV. Kevon Garza MD SEND OUTS Final R esult [facility] [address] [place] [id number], [place] * RAPID HIV SCREEN (12/17/2014 8:25 PM CDT) RAPID HIV SCREEN Non-Reacti ve Non-Reacti ve 12/17/2014 9:01 PM CDT [facility] Blood specimen (specimen) BLOOD SPECIMEN / Unknown Venipuncture / Unknown 12/17/2014 8:25 PM CDT 12/17/2014 8:37 PM CDT Talon Jorge MD CHEMISTRY Final R esult [facility] [address] [place] [address] from Last 3 Months or Most Recently Relevant to Health Maintenance Insurance [facility]ARTINS [phone] [id number] Advance Directives * Full Code (Latest Code Status on File) Date Activated Date Inactivated Comments 12/21/2017 2:15 AM 12/21/2017 7:07 PM * Full Code Date Activated Date Inactivated Comments 04/26/2007 11:29 PM 04/28/2007 3:03 PM * Full Code Date Activated Date Inactivated Comments 04/26/2007 3:47 PM 04/26/2007 4:56 PM * Full Code Date Activated Date Inactivated Comments 03/05/2007 8:40 PM 03/06/2007 1:04 AM Care Teams Flume Worker Relationship Specialty Start Date End Date Pcp, No . PCP - General 12/16/21 [place] [address] [place] [address] Family Practice 07/28/17
--- OUTSIDE RECORDS SUMMARY | 2025-03-27 10:19 | XMS_ITS | Encounter Summary ---
Author Organization [employer] Address [address], [place] [address] Care Team Providers Care Airveyor Operator Name Role Phone Aaron Morales MD Primary Care Provider [phone] Reason for Visit * Reason Comments Specialty Pharmacy dupuilumab Encounter Details Date Type Department Care Team (Late st Contact Info) Description 03/04/2025 Telephone [facility] [address] [address] Bre Sol, PharmD [address] [place] [address] Specialty Pharmacy (dupuilumab) Social History Tobacco Use Types Packs/Day Years [...] Sex Assigned at Female 08/12/2023 11:19 AM LABORATORY CHEMIST Legal Sex Female 5:45 AM CDT Gender Identity Female 08/12/2023 11:19 AM LABORATORY CHEMIST Sexual Orientation Not on file 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 Update to note below: it does appear the PA request was already submitted and denied. However- theyhave given a short-term approval for 2 months from today to allow time to talk with your doctor toprovide additional information.... or potentially change therapy. At this point- I would recommend follow up with the patient (either by MTM or provider) sometime inthe next two months. Once this follow up has occurred, if patient has noticed improvement from Dupixent please let [facility] know and we will proceed with PA renewal at that time. I did call [facility] Specialty to notify them that patient's PA for Dupixent has been approved thru 05/04/25. Lexy Arzate PharmD 03/04/2025 12:49 PM Lexy Arzate PharmD 03/04/2025 12:50 PM Specialty Pharmacy * Lexy Arzate PharmD - 03/04/2025 9:24 AM CDT Good morning, In order to proceed with Sanam's Dupixent PA renewal we need to have documentation of improvement since starting therapy. At this point the most recent notes are from 01/14/25, and at that time the patient had not noticeda significant improvement, but the provider wanted her to continue therapy for 3 more months. Basedon her fill records, she likely started therapy in late September, which means that she had been on Dupixent 3.5 months at that time. As of today, she would have been on therapy for just over 5 months. We do have documentation that her current PA is approved thru 03/30/25. At this point, [facility] cannot proceed with PA renewal until wehave documentation that she has demonstrated response to Dupixent. Options at this point include: 1) Reaching out to patient now to see if she has noticed improvement in symptoms, and if yes- proceed with PA now. If not- wait and re-assess after 6 month marc. 2) Wait until closer to PA expiration date (03/30) to follow up with patient, and then pursue PA atthat time. Let us know how you would like to proceed- thanks! Lexy Arzate, PharmD 03/04/2025 9:37 AM Specialty Pharmacy documented in this encounter Plan of Treatment Upcoming Encounters Date Type Department Care Team (Late st Contact Info) Description 04/05/2025 8:45 AM CDT Appointment Specialty Center [address] [place] [address]. [place], [place] [phone] Manda Chawla MD [address] [place] [address] [phone] Breathing Test, Hs Allergy 04/13/2025 3:25 PM CDT Hospital Encounter Operating Room [address] [place] [address] Roberta Snowden MD [address] [place] [address] 04/13/2025 3:25 PM CDT Anesthesia Event Operating Room [address] [place] [address] Donovan Lau MBBS [address] [place] [address] 04/13/2025 3:25 PM CDT - 04/13/2025 4:55 PM CDT Surgery Operating Room [address] [place] [address] Roberta Snowden MD [address] [place], [place] [phone] MIDURETHRAL SLING, CYSTOSCOPY 04/28/2025 1:10 PM CDT Appointment Specialty [facility] [address] [place] [address]. [place], [place] [phone] Tre Greenwood MD [address] [place] [address] Scheduled Procedures Name Priority Associated Diagnoses Date/Ti me CYSTOSCOPIC FORMATION MIDURETHRAL SLING JERRY (stress urinary incontinence, female) 04/13/2025 3:25 PM CDT documented as of this encounter Visit Diagnoses Not on filedocumented in this encounter Care Teams Airveyor Operator Relationship Specialty [place] [address] [place] [address] PCP - General Family Practice 06/26/22 documented as of this encounter
--- OUTSIDE RECORDS SUMMARY | 2025-03-27 10:19 | XMS_ITS | Encounter Summary ---
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 [place] [address] Manda Chawla MD [address] [place] [address] [phone] Breathing Test, Hs Allergy 04/13/2025 3:25 PM CDT Hospital Encounter [facility] Operating Room [address] [place] [address] Roberta Snowden MD [address] [place], [place] [phone] 04/13/2025 3:25 PM CDT Anesthesia Event Operating Room [address] [place] [address] Donovan Lau MBBS [address] [place] [address] 04/13/2025 3:25 PM CDT - 04/13/2025 4:55 PM CDT Surgery Operating Room [address] [place] [address] Roberta Snowden MD [address] [place], [place] [phone] MIDURETHRAL SLING, CYSTOSCOPY 04/28/2025 1:10 PM CDT Appointment [facility] [address] [place] [address] [phone] Tre Greenwood MD [address] [place] [address] [phone] Scheduled Procedures Name Priority Associated Diagnoses Date/Ti me CYSTOSCOPIC FORMATION MIDURETHRAL SLING JERRY (stress urinary incontinence, female) 04/13/2025 3:25 PM CDT documented as of this encounter Visit Diagnoses Not on filedocumented in this encounter Care Teams Cogeneration Technician Relationship Specialty [place] [address] [place] [address] PCP - General Family Practice 06/26/22 documented as of this encounter
--- OUTSIDE RECORDS SUMMARY | 2025-03-27 10:19 | XMS_ITS | Encounter Summary ---
Author Organization [employer] Address [address], [place] [address] Care Team Providers Care Golf Sales Associate Name Role Phone Aaron Morales MD Primary Care Provider [phone] Reason for Visit * Reason Comments Prior Authorization For Medication Encounter Details Date Type Department Care Team (Late st Contact Info) Description 03/03/2025 Telephone Specialty Center 401 [facility] 401 [facility] 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 Thank you. * Alicia Bernabe - 03/18/2025 3:54 PM CDT Patient called back to reschedule there is no availability in March with Dr. Greenwood. Please advise on how to go from here. * Alicia Bernabe - 03/05/2025 9:11 AM CDT LMTCBx1 and OPS sent * Robinson Tatum RN - 03/04/2025 2:58 PM CDT Please reschedule appointment from April to March. Needs to be seen to continue dupixent. Thanks. * Lexy Arzate, PharmD - 03/04/2025 12:47 PM CDT See 03/04 TE message- Dupixent PA has been extended by 2 months (at which point patient will have to have shown improvement in symptoms or provider will have to change to alternate therapy). Outbound call to [facility] to notify them of extension to Dupixent PA- should now be good thru 05/04/25. Lexy Arzate PharmD 03/04/2025 12:48 PM * Lexy Arzate, PharmD - 03/04/2025 9:38 AM CDT See 03/04 TE encounter- [facility]PSP needs confirmation of positive response to therapy before we can proceed with PA renewal. Message routed to [facility] pharmacist to review options. Chart notes indicate initialPA was approved for 6 months and is good thru 03/30/25. Lexy Arzate, Saniya 03/04/2025 9:39 AM Specialty Pharmacy * Robinson Tatum RN - 03/03/2025 3:57 PM CDT PA initiated. * Jamshid Carnes - 03/03/2025 8:38 AM CDT Is this for a prior authorization or a medication alternative request? Prior Authorization. Name/Dose of Medication: dupilumab (DUPIXENT) 300 MG/2ML prefilled syringe Pharmacy Details: [facility] [id number] [place] [address] (Pharmacy) Care team, please start PA for requested medication. Fax can be found in completed RightFAX folder. documented in this encounter Plan of Treatment Upcoming Encounters Date Type Department Care Team (Late st Contact Info) Description 04/05/2025 8:45 AM CDT Appointment Specialty Center [address] [place] [address]. [place] [address] Manda Chawla MD [address] [place] [address] Breathing Test, Hs Allergy 04/13/2025 3:25 PM CDT Hospital Encounter RH Operating Room [address] [place], [place] [phone] Roberta Snowden MD [address] [place] [address] 04/13/2025 3:25 PM CDT Anesthesia Event RH Operating Room [address] [place], [place] [phone] Donovan Lau MBBS [address] [place] [address] 04/13/2025 3:25 PM CDT - 04/13/2025 4:55 PM CDT Surgery Operating Room [address] [place] [address] Roberta Snowden MD [address] [place], [place] [phone] MIDURETHRAL SLING, CYSTOSCOPY 04/28/2025 1:10 PM CDT Appointment [facility] [address] [place] [address]. [place], [place] [phone] Tre Greenwood MD [address] [place], [place] [phone] Scheduled Procedures Name Priority Associated Diagnoses Date/Ti me CYSTOSCOPIC FORMATION MIDURETHRAL SLING JERRY (stress urinary incontinence, female) 04/13/2025 3:25 PM CDT documented as of this encounter Visit Diagnoses Not on filedocumented in this encounter Care Teams Golf Sales Associate Relationship Specialty [place] [address] [place] [address] PCP - General Family Practice 06/26/22 documented as of this encounter
--- OUTSIDE RECORDS SUMMARY | 2025-03-27 10:19 | XMS_ITS | Encounter Summary ---
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 I sent a prescription for an oral anti-fungal pill to your pharmacy. Your prescription will contain two tablets. Take one tablet today. One pill clears up an infection for most women. If you still have symptoms 72 hours after taking the first pill, take the second pill at that time. Please review the treatment plan for additional care instructions and tips. If you have questions or concerns, select Help from your treatment plan and submit a Follow Up Request Be well! [place] Steve Treatment Plan Let?? treat your yeast infection with an antifungal medication. I sent a prescription to [facility] [place] [facility]. Most people?? symptoms will improve with just one pill. If your symptoms haven?? improvedwithin 3 days, take the second pill included with your prescription. If you still continue to experience symptoms or have questions, please select Help to Request a Follow-up and we??l chat about possible next steps??ree of charge. Order(s) fluconazole 150 mg tablet Take 1 tablet by mouth single dose as directed Note: Repeat in 3 days if symptoms persist Refills: None Sent To: [place] [address] Treatment Plan Self Care Tip Topics Common Risk Factors for Yeast Infections What to Expect Your symptoms should start to improve over the next 3 days. For more information about how to take your prescribed medication and how to Request a Follow-up if needed, follow the recommendations in the Treatment Tab. What to Watch Out For Give us a call if you experience: ??? Shaking chills ??? High fever ??? Odor with vaginal discharge ??? Frequent, painful urination ??? Blood in the urine ??? Severe pain in your back, abdomen or pelvis My Conditions, Orders, Allergies as of February 06, 2025 Standard condition list Allergic Rhinitis (allergies) Asthma depression Current orders fluconazole (fluconazole) Zyrtec (cetirizine) albuterol sulfate (albuterol sulfate) Trelegy Ellipta (osjtoddhrjw-pfsvjpysh-zebslium) Prozac (fluoxetine) Wellbutrin XL (bupropion HCl) aripiprazole (aripiprazole) hydroxyzine pamoate (hydroxyzine pamoate) Dupixent Syringe (dupilumab) Wegovy (semaglutide (weight loss)) Prilosec (omeprazole magnesium) Allergies Aspirin (Tartrazine Only) Advil (ibuprofen), oral cephalexin (cephalexin), oral [facility] Information [facility] by [employer] We are an online clinic open 29/04. If you have any questions or comments about this visit, please call or email [email or web address] documented in this encounter Plan of Treatment Upcoming Encounters Date Type Department Care Team (Late st Contact Info) Description 04/05/2025 8:45 AM CDT Appointment Specialty Center [facility] [address] [place] [address]. [place], [place] [phone] Manda Chawla MD [address] [place] [phone] Breathing Test, Hs Allergy 04/13/2025 3:25 PM CDT Hospital Encounter Operating Room [address] [place] [address] Roberta Snowden MD [address] [place], [place] [phone] 04/13/2025 3:25 PM CDT Anesthesia Event Operating Room [address] [place] [address] Donovan Lau MBBS [address] [place] [address] 04/13/2025 3:25 PM CDT - 04/13/2025 4:55 PM CDT Surgery Operating Room [address] [place] [address] Roberta Snowden MD [address] [place], [place] [phone] MIDURETHRAL SLING, CYSTOSCOPY 04/28/2025 1:10 PM CDT Appointment Specialty Center [facility] [address] [place] [address] [phone] Tre Greenwood MD [address] [place] [address] Scheduled Procedures Name Priority Associated Diagnoses Date/Ti me CYSTOSCOPIC FORMATION MIDURETHRAL SLING JERRY (stress urinary incontinence, female) 04/13/2025 3:25 PM CDT documented as of this encounter Visit Diagnoses Diagnosis JERRY (stress urinary incontinence, female)- Primary Female stress incontinence Acute candidiasis of vulva and vagina JERRY (stress urinary incontinence, female) Female stress incontinence documented in this encounter Care Teams Senior Sql Dba Relationship Specialty [place] [address] [place] [address] PCP - General Family Practice 06/26/22 documented as of this encounter
--- OUTSIDE RECORDS SUMMARY | 2025-03-27 10:19 | XMS_ITS | Encounter Summary ---
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 CODEY Pearson Treatment Plan I sent a prescription for an oral antifungal medication to [facility] [address] [facility]. Often, symptoms improve withone dose of this medication. If your symptoms don?? improve within 3 days, take the second dose. If you havequestions, selectHelptoRequest a follow-up,andwe??l discuss next steps. Order(s) fluconazole 150 mg tablet Take 1 tablet by mouth single dose as directed Note: Repeat in 3 days if symptoms persist Refills: None Sent To: [facility] [address] [place] [address] Treatment Plan Self Care Tip Topics Common Risk Factors for Yeast Infections What to Expect With the recommendations in this treatment plan, your symptoms should start to improve over the next 3days but may take up to a week to fully resolve. If your symptoms worsen or don?? improve in thistimeframe,I recommend you be seen in person so a clinician can consider testing and determine next steps. What to Watch Out For Visit a clinic or urgent care if you experience: ??? A fever higher than 103.0 F ??? Strong vaginal odor with discharge ??? Frequent, painful urination ??? Blood in urine ??? Severe back, abdominal or pelvic pain My Conditions, Orders, Allergies as of March 22, 2025 Standard condition list sinus infection Allergic Rhinitis (allergies) Asthma depression Current orders fluconazole (fluconazole) Zyrtec (cetirizine) albuterol sulfate (albuterol sulfate) Trelegy Ellipta (oyzwrmoekrb-xlbilkvsf-ucwxddth) Prozac (fluoxetine) Wellbutrin XL (bupropion HCl) aripiprazole (aripiprazole) hydroxyzine pamoate (hydroxyzine pamoate) Dupixent Syringe (dupilumab) Wegovy (semaglutide (weight loss)) Prilosec (omeprazole magnesium) Allergies Aspirin (Tartrazine Only) Advil (ibuprofen), oral cephalexin (cephalexin), oral [facility] Information [facility] [employer] We are an online clinic open 29/04. If you have any questions or comments about this visit, please call or email [email or web address] documented in this encounter Plan of Treatment Upcoming Encounters Date Type Department Care Team (Late st Contact Info) Description 04/05/2025 8:45 AM CDT Appointment Specialty Center [facility] [address] [place] [address]. [place], [place] [phone] Manda Chawla MD [address] [place] [address] Breathing Test, Hs Allergy 04/13/2025 3:25 PM CDT Hospital Encounter Operating Room [address] [place] [address] oRberta Snowden MD [address] [place] [address] 04/13/2025 3:25 PM CDT Anesthesia Event Operating Room [address] [place] [address] Donovan Lau MBBS [address] [place] [address] 04/13/2025 3:25 PM CDT - 04/13/2025 4:55 PM CDT Surgery Operating Room [address] [place] [address] Roberta Snowden MD [address] [place], [place] [phone] MIDURETHRAL SLING, CYSTOSCOPY 04/28/2025 1:10 PM CDT Appointment Specialty Center [facility] [address] [place] [address]. [place], [place] [phone] Tre Greenwood MD [address] [place] [address] Scheduled Procedures Name Priority Associated Diagnoses Date/Ti me CYSTOSCOPIC FORMATION MIDURETHRAL SLING JERRY (stress urinary incontinence, female) 04/13/2025 3:25 PM CDT documented as of this encounter Visit Diagnoses Diagnosis JERRY (stress urinary incontinence, female)- Primary Female stress incontinence Acute candidiasis of vulva and vagina JERRY (stress urinary incontinence, female) Female stress incontinence documented in this encounter Care Teams Lawn Care Professional Relationship Specialty [place] [address] [place] [address] PCP - General Family Practice 06/26/22 documented as of this encounter
--- OUTSIDE RECORDS SUMMARY | 2025-03-27 10:19 | XMS_ITS | Encounter Summary ---
Author Organization [employer] Address [address] [place] [address] Care Team Providers Care Juvenile Justice Specialist Name Role Phone Aaron Morales MD Primary Care Provider [phone] Reason for Visit * Reason Comments Refill montelukast (SINGULA IR) 10 MG tablet [Pharmacy Med Name: MONTELUKAST SOD 10 MG TABLET] Encounter Details Date Type Department Care Team (Late st Contact Info) Description 02/10/2025 Refill [place] [id number] [facility] [address] [place] [address] [place] [address] [place], [place] [phone] Refill (montelukast (SINGULAIR) 10 MG tablet [Pharmacy Med Name: MONTELUKAST SOD 10 MG TABLET]) Social History Tobacco Use Types Packs/Day Years [...] Sex Assigned at Female 08/12/2023 11:19 AM 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 Requested Prescriptions Pending Prescriptions Disp Refills ??? montelukast (SINGULAIR) 10 MG tablet [Pharmacy Med Name: MONTELUKAST SOD 10 MG TABLET] 90 Tablet 1 Sig: TAKE 1 TABLET BY MOUTH EVERYDAY AT BEDTIME * Keara Low Xrwcomm - 02/10/2025 12:28 AM CDT montelukast (SINGULAIR) 10 MG tablet [Pharmacy Med Name: MONTELUKAST SOD 10 MG TABLET] Medication started: 06/05/2022 Last ordered by AARON MORALES S: 11/26/2023 (442 days ago) QTY: 90, Refills: 3, Sig: take 1 tablet(10 mg) by mouth daily at bedtime. (changed but equivalent) -> Refill x 6 months, qty: 90, refills: 1 (until due for an office visit) Last qualifying visit: 08/10/2024 (with AARON MORALES) Next scheduled visit: 03/30/2025 (with AARON MORALES) [facility] Embedded Refills, Reference: [id number], 02/10/2025 12:28:07 AM DANISHATJanice Refill Centralized Services - Primary Care [[id number]] ([id number]) documented in this encounter Plan of Treatment Upcoming Encounters Date Type Department Care Team (Late st Contact Info) Description 04/05/2025 8:45 AM CDT Appointment Specialty Center [facility] Allergy Clinic [address] [place] [address] [phone] Manda Chawla MD [address] [place] [address] [phone] Breathing Test, Hs Allergy 04/13/2025 3:25 PM CDT Hospital Encounter Operating Room [address] [place] [id number] Roberta Snowden MD [address] [place], [place] [phone] 04/13/2025 3:25 PM CDT Anesthesia Event Operating Room [address] [place] [address] [phone] Donovan Lau MBBS [address] [place] [address] [phone] 04/13/2025 3:25 PM CDT - 04/13/2025 4:55 PM CDT Surgery Operating Room [address] [place] [address] [phone] Roberta Snowden MD [address] [place], [place] [phone] MIDURETHRAL SLING, CYSTOSCOPY 04/28/2025 1:10 PM CDT Appointment Specialty [place] [address] [facility] [address] [place] [phone] Tre Greenwood MD [address] [place] [address] Scheduled Procedures Name Priority Associated Diagnoses Date/Ti me CYSTOSCOPIC FORMATION MIDURETHRAL SLING JERRY (stress urinary incontinence, female) 04/13/2025 3:25 PM CDT documented as of this encounter Visit Diagnoses Diagnosis JERRY (stress urinary incontinence, female)- Primary Female stress incontinence Allergic rhinitis, unspecified JERRY (stress urinary incontinence, female) Female stress incontinence documented in this encounter Care Teams Juvenile Justice Specialist Relationship Specialty [place] [address] [place] [address] PCP - General Family Practice 06/26/22 documented as of this encounter
--- OUTSIDE RECORDS SUMMARY | 2025-03-27 10:19 | XMS_ITS | Clinical Summary ---
Author Organization [facility] Address [address] [place] [address] Care Team Providers Care Charge Poster Name Role Phone Aaron Morales MD Primary Care Provider [phone] Source Comments You are receiving this document as you are listed as the primary care provider,follow-up provider, or the patient has been referred to you for consultation.This is in compliance with the Medicare and[facility] E[facility] Incentive [facility],which states Providers who transition their patient to another setting of careor provider of care or refers their patient to another provider of care shouldprovide summary care record for each transition of care or referral. [email or web address] Allergies Active Allergy Reactions Criticality Noted Date Comments Aspirin Anaphylaxis,Cough,Ga str ointestinal High 07/12/2022 Excedrin contains ASA; pt to avoid excedrin. Cephalexin Other, see comments 10/25/2021 Jaw pain Dupilumab Other, see comments Low 03/25/2025 Joint pain and eosinophilia (600 -> 1100) Ibuprofen Respiratory Distress,Nausea And Vomiting High 04/18/2018 Medications * This document contains information received from the source organization and may not represent a complete record from that organization. FLUoxetine (PROZAC) 40 MG capsule Take 1 Capsule (40 mg) by mouth daily. 06/04/20 22 Active buPROPion (WELLBUTRIN XL) 300 MG 24 hour release tablet Take 1 Tablet (300 mg) by mouth daily. 06/04/20 22 Active cetirizine (ZYRTEC) 10 MG tablet Take 1 Tablet (10 mg) by mouth daily. Active budesonide (PULMICORT) 0.25 MG/2ML nebulization suspension 2 mL (0.25 mg) two times a day. 01/29/20 22 Active cholecalciferol (VITAMIND3) 50 MCG (2000 UT) tablet Take 1 Tablet (2,000 Units) by mouth daily. Active ipratropium-alb uterol (DUONEB) 0.5-2.5 (3) mg/3ml nebulizer solution Inhale 3 mL every 6 hours as needed for Wheezing. Active Vnfyxnvr-Epj-Yu -FA (PRE- FORMULA) Take 1 Tablet by mouth daily. Active hydrOXYzine HCl (ATARAX) 10 MG tabletIndicatio ns:Anxiety Take 1 Tablet (10 mg) by mouth two times a day. Indications: Feeling Anxious 07/05/20 22 Active albuterol 2.5 mg/3 mL, 0.083%, (PROVENTIL) nebulizer solution 1 Each (2.5 mg) by Nebulization route every 2 hours as needed for Wheezing or Shortness of Breath. Inhale one vial every 20 minutes up to three times. Then every 1-4 hours as needed. 90 mL 1 01/05/20 23 Active finasteride (PROSCAR) 5 MG tabletIndicatio ns:Hair loss Take 1 Tablet (5 mg) by mouth daily. 90 Tablet 3 07/09/20 23 Active Additional Information Patient not taking.Reported on 03/26/2025 traZODone (DESYREL) 150 MG tablet Take 1 Tablet (150 mg) by mouth daily at bedtime. 90 Tablet 3 11/07/19 24 Active Additional Information Patient taking differently:150 mg OralHS PRN, Sleep, Reported on 09/28/2024 ARIPiprazole (ABILIFY) 5 MG tablet Take 1 Tablet (5 mg) by mouth daily. 90 Tablet 3 11/07/19 24 Active fluticasone-ume clidin-vilant (TRELEGY ELLIPTA) 200-62.5-25 MCG/ACT inhalerIndicati ons:Severe persistent asthma with (acute) exacerbation (HRC) Inhale 1 Dose daily. Rinse mouth/gargle after use 180 Each 3 08/10/20 24 Active semaglutide-wilber ght management (WEGOVY) 2.4 MG/0.75ML pen injectionIndica tions:Overweigh t (BMI 25.0-29.9) (HRC) Inject 0.75 mL (2.4 mg) subcutaneously once every week. 9 mL 3 08/10/20 24 Active omeprazole (PRILOSEC) 20 MG capsule TAKE 1 CAPSULE BY MOUTH EVERY DAY 90 Capsule 3 08/21/20 24 Active ALBUterol sulfate HFA 108 (90 Base) MCG/ACT inhaler INHALE 2 PUFFS BY MOUTH EVERY 6 HOURS 3 Each 3 09/09/20 24 Active montelukast (SINGULAIR) 10 MG tabletIndicatio ns:Allergic rhinitis, unspecified TAKE 1 TABLET BY MOUTH EVERYDAY AT BEDTIME 90 Tablet 1 02/16/20 25 Active amoxicillin-cla vulanate (AUGMENTIN) 875-125 mg per tablet Take 1 Tablet by mouth two times a day for 14 days. 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 Inject 2 syringes (600mg) under the skin once, then 2 weeks later reduce to 1 pen (300mg) under the skin every 14 days thereafter Indications: Asthma 8 mL 1 09/28/20 24 025 Discontinu ed(Side effects or allergy) Hospital, Clinic, or Other Facility Administered Medication Ordered Dose Route Frequency Start Date End Date Status ipratropium-albuterol (DUONEB) 0.5-2.5 (3) mg/3ml nebulizer solution 3 mLIndications:Severe persistent asthma with acute exacerbation (HRC) 3 mL IN ONCE 03/26/2025 03/26/2025 Ended Active Problems Problem Noted Date Diagnosed Date Major depressive disorder, recurrent, mild 01/14 Depression, unspecified 01/14/2025 JERRY (stress urinary incontinence, female) 2024 Allergic eosinophilia 09/17/2024 Chronic pansinusitis 02/19/2024 Nasal polyposis 02/19/2024 Samter's triad 02/19/2024 Tobacco use disorder 11/07/2023 IUD contraception 03/14/2023 Overview (03/14/2023): KAUSHIK LOT# [id number] PLACED 03/14/2023 Obesity, Class I, BMI 30-34.9 07/04/2022 History of colonic polyps 10/25/2021 Suicide attempt 10/16/2021 Perimenopause 07/18/2021 Major depressive disorder, recurrent, moderate 0 06/18/2020 Severe persistent asthma 03/20/2019 Dyslipidemia 09/05/2018 Prediabetes 09/05/2018 Vitamin D deficiency 09/05/2018 Stress incontinence of urine 04/22/2018 Overview (06/26/2022): Added automatically from request for surgery [id number] FHx: rheumatoid arthritis 03/31/2014 Attention deficit disorder 12/24/2011 Psoriasis 10/25/2009 Generalized anxiety disorder 09/23/2009 Allergic rhinitis 01/17/2009 Moderate dysplasia of cervix 10/07/2003 Overview (04/01/2023): 2003 colp, cryotherapy of cervix 09/04/18 NIL/HPV negative ASCCP recommends: History of CIN2 - CIN3: Pap and HPV every 3 years for 20 years. Plan:Pap/HPV due 08/2021 [facility] Review: From chart GENA ballesteros 10/27/2013 'Moderate dysplasia of cervix 2003 colp, cryo ' History: 12/2004: LSIL 04/2005: NILM 2006: NILM HPV- 2008: NILM HPV- 2009: NILM HPV- 2011: NILM 2012: NILM 2015: NILM 2018: NILM HPV- 2022: NILM HPV- Plan, per ASCCP guidelines: Repeat co-test in 3 years (03/2026). Continued surveillance at 3-year intervals is recommended for at least 25 years after treatment of high grade histology (histologic HSIL, PARIS 2, PARIS 3, or AIS) or any high- grade cytology (HSIL or persistent ASC-H) even if this is beyond the age of 65 years. Encounters Date Type Department Care Team Description 03/26/2025 1:40 PM CDT Office Visit [facility] [address] [facility] [phone] [place] [phone] Terry Jalloh MD Severe persistent asthma with acute exacerbation (HRC); Nicotine abuse (HRC) 03/26/2025 Specialty Pharmacy [facility] [place] [address] Clif Ayala, PharmD 03/22/2025 [facility] Chris [address] [place] [address] 03/19/2025 11:30 AM CDT Phone Visit [facility] [address] [phone] Bre Sol, PharmD Severe persistent asthma, unspecified whether complicated (HRC) (Primary Dx) 03/19/2025 10:40 AM CDT Office Visit [facility] [address] [facility] [address] [place] [phone] Greg Casas MD Sinus congestion 03/05/2025 E-Visit [facility] [address] [place] [address]. [place], [place] [phone] Mychart, Generic Provider 03/04/2025 Telephone [facility] [address] [phone] Bre Sol, PharmD Specialty Pharmacy (dupuilumab) 03/03/2025 Telephone [facility] [address] [place] [address]. [place] [address] Tre Greenwood MD Prior Authorization For Medication 02/10/[address] [phone] Aaron Morales MD Refill (montelukast (SINGULAIR) 10 MG tablet [Pharmacy Med Name: MONTELUKAST SOD 10 MG TABLET]) 02/05/2025 chris Hernandez [address] [place] [phone] 01/21/2025 Telephone [facility] [address] [place] [address]. [place] [address] Tre Greenwood MD Future Appointments 01/20/2025 Results Follow-Up PULMONARY IP SERVICE [address] [place] [address] Tre Greenwood MD 01/14/2025 11:50 AM CDT Lab Visit [facility] [address] [place] [phone] Severe persistent asthma, unspecified whether complicated (HRC) 01/14/2025 11:10 AM CDT Office Visit [facility] [address] [place] [address]. [place] [address] Tre Greenwood MD Severe persistent asthma, unspecified whether complicated (HRC) (Primary Dx); Nasal polyposis; Allergic rhinitis, unspecified seasonality, unspecified trigger; Tobacco use disorder (HRC) 01/14/2025 Orders Only HIM DEPARTMENT Provider, MD Jazmin 01/14/2025 Telephone [facility] [place] [address] [facility] [address] [place] [address]. [place] [address] Tre Greenwood MD Forms 01/12/2025 Results Follow-Up [address] [phone] Aaron Morales MD 01/08/2025 7:50 AM CDT Lab Visit [address] [phone] Dyslipidemia (HRC); Screening for thyroid disorder; High risk medication use from Last 3 Months Immunizations Immunization Administration Dates Next Due Flu Vac (3+ yrs) 10/05/2013, 2,07/31/2011,2008 Flublok (RIV4) 11/12/2019 Influenza (Archie Only) (Flul aval Quad 0.5, 3+ yrs) 06/12/2017 Influenza IIV4 (Quadrivalent ) 0.5mL ([id number]) 06/26/2022,07/17/2021,06/02/2020,2019,06/20/2018,08/29/2016,09/09/2015,0 07/02/2014 Influenza ccIIV3 6 months+ (Flucelvax) 08/10/2024 Moderna Monovalent 12+ 10/05/2020 PCV20 ([id number]) 08/21/2022 PPSV23 (Pneumovax) 07/17/2021 Pfizer Bivalent 12+ 08/21/2022 Pfizer Monovalent 12+ Purple Top 10/30/2021,12/2021 Td 01/30/2006 Tdap 05/11/2024,09/24/2014 Family History Medical History Relation Name Comments Cancer, Breast Paternal Aunt Cancer, Ovary Negative Family History Relation Name Status Comments Paternal Aunt Social History Tobacco Use Types Packs/Day Years Used Date Smoking Tobacco: Every Day Cigarettes 1 26.7 Started: 1995; Last attempted to quit: 2020 Tobacco Cessation:Ready to Q uit: Not Asked; Counseling Given: Not Answered Alcohol Use Standard Drinks/Week Comments Yes 0 (1 standard drink = 0.6 oz pur e alcohol) occ PHQ-2 Answer Date Recorded PHQ-2 Score 2 07/09/2023 Comments No Sex and Gender Information Value Date Recorded Sex Assigned at Female 08/12/2023 11:19 AM TECHNICAL MARKETING ENGINEER Legal Sex Female 5:45 AM CDT Gender Identity Female 08/12/2023 11:19 AM TECHNICAL MARKETING ENGINEER Sexual Orientation Not on file Occupation Industry [...] CDT Inhaled Oxygen Concentration - - Weight 70.8 kg (156 lb) 01/14/2025 11:07 AM CDT Height 167.6 cm (5' 6) 01/14/2025 11:07 AM CDT Body Mass Index 25.18 01/14/2025 11:07 AM CDT Plan of Treatment Upcoming Encounters Date Type Department Care Team (Late st Contact Info) Description 04/05/2025 8:45 AM CDT Appointment [facility] [address] [place] [phone] Manda Chawla MD [address] [place] [phone] Breathing Test, Hs Allergy 04/13/2025 3:25 PM CDT Hospital Encounter [facility] Operating Room [address] [place] [phone] Roberta Snowden MD [address] [place], [place] [phone] 04/13/2025 3:25 PM CDT Anesthesia Event Operating Room [address] [place] [address] Donovan Lau MBBS [address] [place] [phone] 04/13/2025 3:25 PM CDT - 04/13/2025 4:55 PM CDT Surgery Operating Room [address] [place] [address] Roberta Snowden MD [address] [place], [place] [phone] MIDURETHRAL SLING, CYSTOSCOPY 04/28/2025 1:10 PM CDT Appointment [facility] [address] [place] [phone] Tre Greenwood MD [address] [place] [phone] Scheduled Procedures Name Priority Associated Diagnoses Date/Ti me CYSTOSCOPIC FORMATION MIDURETHRAL SLING JERRY (stress urinary incontinence, female) 04/13/2025 3:25 PM CDT Health Maintenance Due Date Last Done Comments Adult Preventive Visit 2000 HepB Vaccine (1) 2001 COVID-19 Vaccine ( season) 2024 08/21/2022, 10/30/2021, 10/09/2021, Additional history exists Mammogram 11/20/2024 11/20/2023, 09/13/2015 Asthma ACT (score of 20 or higher) 07/02/2025 07/02/2024 Prediabetes: HGBA1C 01/08/2026 01/08/2025, 09/02/2023, 06/26/2022 Cervical Cancer Screening 03/14/20262022, 03/14/2023, 09/04/2018 (Completed), Additional history exists Zoster/Shingles Vaccine (1 of 2) 2032 DTaP/Tdap/Td Vaccine (3 - Tdap) 05/11/2034 05/11/2024, 09/24/2014, 01/30/2006 HIV Screening (Preventive Services) Completed 12/17/2014, 12/17/2014 (Completed) Hep C Screening (Preventive Services) Completed 06/26/2022 Pneumococcal Vaccine Completed 08/21/2022, 07/17/20 Influenza Vaccine Completed 08/10/2024, , 07/17/2021, Additional history exists HPV Vaccine Aged Out No longer eligi ble based on patient's age to complete this topic HepA Vaccine Aged Out No longer eligi ble based on patient's age to complete this topic Hib Vaccine Aged Out No longer eligi ble based on patient's age to complete this topic IPV (Polio) Vaccine Aged Out No longe r eligible based on patient's age to complete this topic MCV4 Vaccine Aged Out No longer eligi ble based on patient's age to complete this topic Meningococcal B Vaccine Aged Out No l onger eligible based on patient's age to complete this topic Medical Devices Implanted Type Area Roller Operator Device Identifier Shelf Expiration Date Model / Serial / Lot Stent Propel Sinus Mini 4.0mm - [id number] Implanted:Qty: 1 on 07/02/2024 by Dayton Canseco, at [facility] DEVICE Left: NOSE Med[employer]onic 05/27/2025 [id number] / / [id number] Stent Propel Sinus Mini 4.0mm - [id number] Implanted:Qty: 1 on 07/02/2024 by Dayton Canseco, DO at [facility] DEVICE Right: NOSE [employer]tronic 05/27/2025 [id number] / / [id number] Stent Propel Sinus Cntr 2.8mm - [id number] Implanted:Qty: 1 on 07/02/2024 by Dayton Canseco, DO at [facility] DEVICE Left: NOSE [employer]onic 01/09/2025 [id number] / / [id number] Stent Propel Sinus Cntr 2.8mm - [id number] Implanted:Qty: 1 on 07/02/2024 by Dayton Canseco, DO at [facility] DEVICE Right: NOSE [employer]tronic 12/23/2025 [id number] / / [id number] Procedures Procedure Name Priority Date/Time Associated Diagnosis Comments WBC & DIFFERENTIAL Routine 01/14/2025 12 :00 PM CDT Severe persistent asthma, unspecified whether complicated (HRC) WBC AND DIFFERENTIAL Routine 01/14/2025 12:00 PM CDT Severe persistent asthma, unspecified whether complicated (HRC) SPIROMETRY 01/14/2025 COMPREHENSIVE METABOLIC PANEL Routine 01/08/2025 7:36 AM CDT High risk medication use HGB A1C Routine 01/08/2025 7:36 AM CDT High risk medication use TSH, SENSITIVE Routine 01/08/2025 7:36 AM CDT Screening for thyroid disorder LIPID PANEL & DIRECT LDL (IF NEEDED) Routine 01/08/2025 7:36 AM CDT Dyslipidemia (HRC) MM MAMMOGRAM SCREENING BILAT W 3D ANDERS W CAD Routine 11/20/2023 10:21 AM TECHNICAL MARKETING ENGINEER CYTOLOGY (PAP) Routine 03/14/2023 12:20 PM CDT Cervical cancer screening HEPATITIS C ANTIBODY, WITH REFLEX (ANTI-HCV) Routine 06/26/2022 12:12 PM CDT Need for hepatitis C screening test from Last 3 Months or Most Recently Relevant to Health Maintenance Results * (ABNORMAL) WBC & Differential (01/14/2025 12:00 PM CDT) WBC 7.1 3.5 - 10.5 x10(9)/L 01/14/2025 12:36 PM CDT [facility] Neutrophil Absolute 3.5 1.7 - 7.0 10(9)/L 01/14/2025 12:36 PM CDT [facility] Lymphocyte Absolute 2.1 1.0 - 4.8 10(9)/L 01/14/2025 12:36 PM CDT [facility] Monocyte Absolute 0.3 0.2 - 0.9 10(9)/L 01/14/2025 12:36 PM CDT [facility] Eosinophil Absolute 1.1(H) 0.0 - 0.5 10(9)/L 01/14/2025 12:36 PM CDT [facility] Basophil Absolute 0.1 0.0 - 0.3 10(9)/L 01/14/2025 12:36 PM CDT [facility] Immature Granulocyte % 0.0 0.0 - 0.5 % 01/14/2025 12:36 PM CDT [facility] Blood Venipuncture / Unknown 01/14/2025 12:00 PM CDT 01/14/2025 12:00 PM CDT us Tre X Krystyna TORRES LAB_1 Final Result [facility] [address] [place], [place] [address] * SPIROMETRY (01/14/2025) us Interface Provider DUMMY/OTHER/AR Final Resu lt * Lipid Panel and Direct LDL(If Needed) (01/08/2025 7:36 AM CDT) Cholesterol 172 0 - 199 mg/dL 01/08/2025 12:55 PM CDT [facility] Triglyceride 88 <=149 mg/dL 01/08/2025 12:55 PM CDT [facility] HDL Cholesterol 53 >=40 mg/dL 12:55 PM CDT [facility] LDL, Calculated 101 <130 mg/dL 12:55 PM CDT [facility] Non HDL Chol, Calculated 119 <=159 mg/dL 01/08/2025 12:55 PM CDT [facility] Cholesterol/HDL Ratio 3.2 <=5.0 01/08/2025 12:55 PM CDT [facility] Hours Fasting 12.0 8 - 12 Hours 01/08/2025 12:55 PM CDT [facility] Blood Venipuncture / Unknown 01/08/2025 7:36 AM CDT 01/08/2025 7:36 AM CDT Aaron Morales MD LAB_1 Final Result [facility] [address] [place], [place] [address] [address] [place] [address] * (ABNORMAL) Comp Metabolic Panel (01/08/2025 7:36 AM CDT) Sodium 138 136 - 145 mmol/L 01/08/2025 12:55 PM CDT [facility] Potassium 3.9 3.5 - 5.1 mmol/L 01/08/2025 12:55 PM CDT [facility] Chloride 106 98 - 109 mmol/L 01/08/2025 12:55 PM CDT [facility] CO2 24 20 - 29 mmol/L 01/08/2025 12:55 PM CDT [facility] Anion Gap 8 6 - 16 mmol/L 01/08/2025 12:55 PM T [facility] Calcium 9.0 8.4 - 10.4 mg/dL 01/08/2025 12:55 PM T [facility] BUN 14 7 - 26 mg/dL 01/08/2025 12:55 PM T [facility] Creatinine 0.79 0.55 - 1.02 mg/dL 01/08/2025 12:55 PM T [facility] Alkaline Phosphatase 50 40 - 150 U/L 01/08/2025 12:55 PM T [facility] AST (SGOT) 42(H) 10 - 40 U/L 01/08/2025 12:55 PM T [facility] ALT (SGPT) 21 0 - 55 U/L 01/08/2025 12:55 PM T [facility] Bilirubin, Total 0.5 0.2 - 1.2 mg/dL 01/08/2025 12:55 PM T [facility] Protein, Total 6.7 6.4 - 8.3 g/dL 01/08/2025 12:55 PM T [facility] Albumin 4.0 3.5 - 5.0 g/dL 01/08/2025 12:55 PM T [facility] Glucose 98 70 - 100 mg/dL 01/08/2025 12:55 PM T [facility] Comment:The given reference range is for the fasting state. Non-fasting reference range for glucose is 70 - 180 mg/dL. GFR, Estimated >60 >60 mL/min/1.7 3m2 01/08/2025 12:55 PM T [facility] Hours Fasting 12.0 8 - 12 Hours 01/08/2025 12:55 PM T [facility] Blood Venipuncture / Unknown 01/08/2025 7:36 AM CDT 01/08/2025 7:36 AM CDT us Britta Rangel APRN, DNP LAB_1 Final Res ult [facility] [address] [place] [address], [facility] [address] [place] [address], [facility] * TSH (01/08/2025 7:36 AM CDT) TSH, Sensitive 1.40 0.30 - 4.50 uIU/mL 01/08/2025 1:17 PM CDT [facility] Blood Venipuncture / Unknown 01/08/2025 7:36 AM CDT 01/08/2025 7:36 AM CDT Aaron Morales MD LAB_1 Final Result Performing Organization Address [facility]/ZIP Co de Phone Number [facility] [address] * Hgb A1C (01/08/2025 7:36 AM CDT) Pathologist [facility] Hemoglobin A1C 5.5 <=5.6 % 01/08/2025 4:35 PM CDT [facility] Estimated Average Glucose (Calc) 111 < 117 mg/dL 01/08/2025 4:35 PM CDT [facility] Comment:Estimated average gl ucose (eAG) converts A1c into glucose units (mg/dL) and estimates average glucose over the past approximately 3 months. The eAG reference interval (<117 mg/dL) corresponds to an A1c of <5.7%. Blood Venipuncture / Unknown 01/08/2025 7:36 AM CDT 01/08/2025 7:36 AM CDT Britta Rangel APRN, DNP LAB_1 Final Res ult Performing Organization Address City/[facility] Co de Phone Number [facility] [address] * (ABNORMAL) MM Mammogram Screening Bilat W 3D Anders W CAD (11/20/2023 10:21 AM TECHNICAL MARKETING ENGINEER) Anatomical Region Laterality Modality Breast Bilateral Mammography Impressions 11/21/2023 2:27 PM TECHNICAL MARKETING ENGINEER : ACR BI-RADS Category: 0 - Incomplete: Needs Additional Imaging Evaluation (right) RECOMMENDATION: Ultrasound The results and recommendations of this examination will be communicated to the patient and the imaging center will attempt to schedule any recommended follow up with the patient. As a result of the Cures Act, all medical imaging exams are released immediately to [facility]. You may be viewing this report before our scheduling staff and your referring provider. We will attempt to contact you by phone within one business day of this report to schedule any recommended follow-up exams. If you have questions, please contact your health care provider. Narrative 11/21/2023 2:27 PM TECHNICAL MARKETING ENGINEER MM MAMMOGRAM SCREENING BILAT W 3D ANDERS W CAD performed on 11/20/23 Compared to: 09/13/2015 Foreign Image(S) Mammogram FINDINGS: Bilateral screening mammogram was performed with the assistance of Computer-Aided Detection and breast tomosynthesis. The breasts have scattered areas of fibroglandular density. There is a focal asymmetry in the right breast at the 5 o'clock position at middle depth. The remainder of the breast tissue is unremarkable. us Aaron Morales MD RAD JULIANE Final Result * PAP Test (03/14/2023 12:20 PM CDT) Case Report Pap Case: [id number] Authorizing Provider: Nely Ham MD Collected: 03/14/2023 1220 Ordering Location: [facility] Received: 03/14/2023 1547 First Screen: Skylar Craft CT (ASCP) Specimen: Pap Test, Routine, Cervix/Endocervix 03/27/2023 8:32 AM CDT [facility] Pap Specimen Adequacy Satisfactory for evaluation, endocervical/callahan sformation zone component present. 03/27/2023 8:32 AM CDT [facility] Pap Interpretation (NILM) Negative for intraepithelial lesion or malignancy. 03/27/2023 8:32 AM CDT [facility] at 0832 CDT Pap Disclaimer The Pap test is a screening test designed to aid in the detection of cervical cancer and its precursor lesions. It is not a diagnostic procedure and should not be used as the sole means of detecting cervical cancer. Both false-positive and false-negative results may occur. 03/27/2023 8:32 AM CDT [facility] Gross Description The specimen is received in SurePath fixative and properly labeled. 1 Pap-stained SurePath slide is prepared. 03/27/2023 8:32 AM CDT [facility] Embedded Images 8:32 AM CDT [facility] Other Specimen Type ENTIRE ENDOCERVIX / Unknown 03/14/2023 12:20 PM CDT 03/14/2023 3:47 PM CDT Comment:LMP: No LMP recorded . Nely Ham MD LAB PATHOLOGY Final Resul t Performing Organization Address [facility] Co de Phone Number [facility] [address] * Hepatitis C Antibody, with Reflex (06/26/2022 12:12 PM CDT) Hepatitis C Antibody Negative (Non Reactive) Negative (Non Reactive) 06/26/2022 8:16 PM CDT [facility] Comment:Antibodies to HCV no t detected. Does not exclude the possiblity of exposure to HCV. Blood Venipuncture / Unknown 06/26/2022 12:12 PM CDT 06/26/2022 12:12 PM CDT Aaron Morales MD LAB_1 Final Result Performing Organization Address [facility] de Phone Number [facility] [address] from Last 3 Months or Most Recently Relevant to Health Maintenance Insurance [employer] S[employer] [facility] Address: [facility] [phone] [place] [id number] Advance Directives * Full Code (Latest Code Status on File) Date Activated Date Inactivated Comments 07/02/2024 12:54 PM 07/02/2024 5:20 PM Care Teams Charge Poster Relationship Specialty [place] [id number] [place] [address] PCP - General Family Practice 06/26/22
--- NOTE | 2025-03-27 10:34 | CRLHL7_ITS ---
For Patients: As a result of the Century Cures Act, medical imaging exams and procedure reports are released immediately into your electronic medical record. You may view this report before your referring provider. If you have questions, please contact your health care provider. INDICATION: Shortness of breath. TECHNIQUE: Chest 1 views. COMPARISON: 09/11/2024. FINDINGS: Cardiovasculature and mediastinum: Heart size is normal. Unremarkable mediastinum. Lungs and pleural spaces: Lungs are clear. No sign of infiltrate or mass. No sign of pleural effusion. No pneumothorax. Bones and soft tissues: No significant findings. IMPRESSION: Negative chest. Dictated by Dain Jarvis MD @ 03/27/2025 11:42:36 AM (Electronically Signed)
[2025-03-27] MEDS: IPRAT-ALBUT 0.5-2.5 MG/3 ML NEB 1 NEB IH ×3 (10:35→23:39)
[2025-03-27 10:50] LABS: HCO3 VBG 26 mmol/L (21-28); PCO2 VBG 45 mmHG (40-50); PO2 VBG 30.9 mmHG (25-47); pH VBG 7.376 (7.32-7.43)
[2025-03-27 10:51] LABS: Basophils Absolute Auto 0.03 K/uL (0.00-0.30); Basophils Percent Auto 0.3 % (0.0-3.0); Eosinophils Percent Auto 2.3 % (0.0-7.0); Hematocrit 45.9 % (33.0-51.0); Hemoglobin* 16.1 gm/dL (12.0-16.0); Immature Granulocytes Abs Auto 0.01 K/uL (0.00-0.30); Immature Granulocytes Pct Auto 0.1 %; Lymphocytes Absolute Auto 3.17 K/uL (0.90-2.90); Lymphocytes Percent Auto 35.9 % (20-44); Mean Corpuscular HGB Conc 35 gm/dL (32-36); Mean Corpuscular Hemoglobin 31 pg (26-34); Mean Corpuscular Volume 87 fL (80-100); Monocytes Percent Auto 5.7 % (0.0-11.0); Neutrophils Absolute Auto 4.91 K/uL (1.7-7.0); Neutrophils Percent Auto 55.7 % (42.0-72.0); Platelet Count* 319 K/uL (140-440); RDW Coefficient of Variation % 11.9 % (11.5-15.5); Red Blood Count 5.25 m/uL (4.00-5.20); Slide Review Reflex No; White Blood Count* 8.82 K/uL (4.50-11.00)
[2025-03-27] MEDS: MAGNESIUM IV 2 GM/50 ML PIGGYBACK IVPB (10:55)
[2025-03-27 11:06] LABS: Chloride* 106 mmol/L (96-114)
[2025-03-27 11:07] LABS: Potassium* 4.1 mmol/L (3.6-5.1); Sodium* 139 mmol/L (135-149)
[2025-03-27] MEDS: ALBUTEROL SULFATE 2.5 MG/3 ML VIAL.NEB NEB ×2 (11:09→11:59)
[2025-03-27 11:10] LABS: Anion Gap 10 mEq/L (7-15); Blood Urea Nitrogen* 10 mg/dL (5-24); Calcium* 9.5 mg/dL (8.4-10.6); Carbon Dioxide* 23 mmol/L (20-32); Creatinine* 0.8 mg/dL (0.5-1.5); Est. Creatinine Clearance* 89.08; Estimated Glomerular Filt Rate 94 ml/min; Glucose* 101 mg/dL (60-115)
[2025-03-27] MEDS: METHYLPREDNISOLONE SOD SUCC 62.5 MG/ML (125) 125 MG IVP (11:10)
[2025-03-27 11:12] LABS: D Dimer Quantitative* 0.29 ug/ml (0.00-0.50)
[2025-03-27 11:17] LABS: C Reactive Protein* < 0.5 mg/dL (0.5-1.0)
--- NOTE | 2025-03-27 11:59 | ED.GENADULT ---
HPI - General Adult General Date Seen: 03/27/25 Chief complaint: Shortness of Breath/Dyspnea Stated complaint: asthma Time Seen by Provider: 03/27/25 10:27 History of Present Illness HPI narrative: Patient is a 44-year-old woman who arrives by private vehicle secondary to shortness of breath and asthma exacerbation. Some of the history was taken after she was stabilized. She tells me that she has a longstanding history of asthma, was previously reasonably well controlled on Dupixent but she says that insurance stopped covering it because she was having joint pains. Therefore, for the last year she has not been on that medication and she does feel that her asthma has been more poorly controlled. She has been having problems with sinus symptoms and congestion for the past week, was started on antibiotic last week, and says she went to urgent care yesterday where she was given prednisone. She has taken 1 dose of that but overnight had significant worsening of shortness of breath. She did a couple of nebs and inhalers since then without significant improvement. She does not have chest pain, has had a little bit of a cough but no fever. She notes prior hospitalizations and BiPAP for her asthma but no intubations. She apparently also has had problems with gastroparesis related to will go be, has had some abdominal pain. Notably she does smoke. Related Data Home Medications ?Medication ?Instructions ?Recorded ?Confirmed albuterol sulfate 90 mcg/actuation 2 inh inhalation Q4H PRN 09/11/24 03/27/25 aerosol inhaler aripiprazole 5 mg tablet 5 mg PO DAILY 09/11/24 03/27/25 bupropion HCl 300 mg 24 hr tablet, 300 mg PO DAILY 09/11/24 03/27/25 extended release fluticasone fur. 200 mcg-umeclid 1 inh inhalation DAILY 09/11/24 03/27/25 62.5 mcg-vilant 25 mcg inhalat.powder (Trelegy Ellipta) hydroxyzine HCl 10 mg tablet 10 mg PO BID PRN 09/11/24 03/27/25 montelukast 10 mg tablet 10 mg PO HS 09/11/24 03/27/25 omeprazole 20 mg capsule,delayed 20 mg PO DAILY 09/11/24 03/27/25 release semaglutide (weight loss) 2.4 2.4 mg subcut Q7D 09/11/24 03/27/25 mg/0.75 mL subcutaneous pen injector (Wegovy) albuterol sulfate 2.5 mg/3 mL 2.5 mg inhalation Q2H PRN 03/27/25 03/27/25 (0.083 %) solution for nebulization amoxicillin 875 mg-potassium 1 tab PO BID 03/27/25 03/27/25 clavulanate 125 mg tablet benralizumab 30 mg/mL subcutaneous 30 mg subcut Q4W 03/27/25 03/27/25 auto-injector (Fasenra Pen) budesonide 0.25 mg/2 mL suspension 0.25 mg inhalation BID 03/27/25 03/27/25 for nebulization cetirizine 10 mg tablet 10 mg PO DAILY 03/27/25 03/27/25 cholecalciferol (vitamin D3) 50 50 mcg PO DAILY 03/27/25 03/27/25 mcg (2,000 unit) tablet fluoxetine 40 mg capsule 40 mg PO DAILY 03/27/25 03/27/25 ipratropium 0.5 mg-albuterol 3 mg 3 ml inhalation Q6H PRN 03/27/25 03/27/25 (2.5 mg base)/3 mL nebulization soln multivitamin 1 tab PO DAILY 03/27/25 03/27/25 prednisone 20 mg tablet 20 mg PO DAILY 03/27/25 03/27/25 trazodone 150 mg tablet 150 mg PO HS PRN 03/27/25 03/27/25 Allergies Allergy/AdvReac Type Severity Reaction Status Date / Time ibuprofen Allergy Severe resp Verified 03/27/25 10:24 distress aspirin AdvReac Verified 03/27/25 10:24 cephalexin (From Keflex) AdvReac Verified 03/27/25 10:24 Review of Systems Status of ROS: Reports: 10 or more systems reviewed and unremarkable except as noted in History and below [facility] Medical History (Updated 03/27/25 @ 14:48 by Manda Quiroga MD) Asthma ?J45.909 - Unspecified asthma, uncomplicated (ICD-10) Social History Smoking Status: Current every day smoker Second hand tobacco smoke exposure: Yes How often do you have a drink containing alcohol: never AUDIT-C Alcohol total score: 0 Non-prescribed substance use: denies use Exam Narrative: Exam Narrative: Vital signs reviewed In general, an alert mid aged woman. Moderate respiratory distress. She was doing a neb on my initial exam. Head: Normocephalic, atraumatic. Eyes: Sclera clear. Pupils equal and reactive. ENT: Mucous membranes moist. Neck: Supple without adenopathy. Heart: Tachycardic, regular. Lungs: Diffuse bilateral wheezes. Abdomen: Soft, nondistended, mildly tender without rebound guarding or rigidity. Extremities: Well perfused, pulses intact. No significant edema. Neurologic: Alert, conversant. Speech fluent, face symmetric. Moves all extremities equally. Skin: Warm, dry well perfused. Affect: Normal. Const: Vital Signs, click to edit/add: Vital Signs - 24 hr 03/27/25 10:19 03/27/25 10:36 03/27/25 10:45 Temperature 97.5 F L Pulse Rate 102 H 96 Pulse Rate [Pulse Oximeter] 105 H Respiratory Rate 42 H 23 21 Blood Pressure Blood Pressure [Ri ght Upper Arm] 143/100 H Pulse Oximetry 81 L 92 88 Oxygen Delivery Me thod Room Air Oxygen Flow Rate 03/27/25 10:46 03/27/25 10:48 03/27/25 10:48 Temperature Pulse Rate 102 H Pulse Rate [Pulse Oximeter] Respiratory Rate 17 Blood Pressure 147/100 H Blood Pressure [Ri ght Upper Arm] Pulse Oximetry 91 91 81 L Oxygen Delivery Me thod Nasal Cannula Oxygen Flow Rate 3 03/27/25 11:00 03/27/25 11:01 03/27/25 11:02 Temperature Pulse Rate 86 95 100 Pulse Rate [Pulse Oximeter] Respiratory Rate 15 21 Blood Pressure 110/97 H Blood Pressure [Ri ght Upper Arm] Pulse Oximetry 88 89 88 Oxygen Delivery Me thod Oxygen Flow Rate 03/27/25 11:15 03/27/25 11:17 03/27/25 11:17 Temperature Pulse Rate 91 98 Pulse Rate [Pulse Oximeter] Respiratory Rate 24 18 Blood Pressure 122/92 H Blood Pressure [Ri ght Upper Arm] Pulse Oximetry 94 92 93 Oxygen Delivery Me thod Nasal Cannula Oxygen Flow Rate 3 03/27/25 11:30 03/27/25 11:31 03/27/25 11:45 Temperature Pulse Rate 90 90 88 Pulse Rate [Pulse Oximeter] Respiratory Rate 17 16 21 Blood Pressure 127/83 Blood Pressure [Ri ght Upper Arm] Pulse Oximetry 90 91 90 Oxygen Delivery Me thod Oxygen Flow Rate 03/27/25 11:46 03/27/25 11:47 03/27/25 12:00 Temperature Pulse Rate 89 89 92 Pulse Rate [Pulse Oximeter] Respiratory Rate 20 20 Blood Pressure 123/84 Blood Pressure [Ri ght Upper Arm] Pulse Oximetry 90 90 96 Oxygen Delivery Me thod Nasal Cannula Oxygen Flow Rate 3 03/27/25 12:01 03/27/25 12:15 03/27/25 12:16 Temperature Pulse Rate 95 95 90 Pulse Rate [Pulse Oximeter] Respiratory Rate 13 17 22 Blood Pressure 112/87 122/80 Blood Pressure [Ri ght Upper Arm] Pulse Oximetry 97 93 91 Oxygen Delivery Me thod Oxygen Flow Rate 03/27/25 12:30 03/27/25 12:31 03/27/25 12:45 Temperature Pulse Rate 96 85 94 Pulse Rate [Pulse Oximeter] Respiratory Rate 18 20 21 Blood Pressure 117/74 Blood Pressure [Ri ght Upper Arm] Pulse Oximetry 91 91 91 Oxygen Delivery Me thod Oxygen Flow Rate 03/27/25 12:46 Temperature Pulse Rate 91 Pulse Rate [Pulse Oximeter] Respiratory Rate 21 Blood Pressure 118/70 Blood Pressure [Ri ght Upper Arm] Pulse Oximetry 89 Oxygen Delivery Me thod Room Air Oxygen Flow Rate 3 Course Course ED Course: On initial arrival patient was maintained on monitor, oximetry. She had initially 2 DuoNebs, an IV was established. My initial exam she had diffuse wheezing and increased work of breathing, was hypoxic. After 2 nebs she felt improved but remained hypoxic and wheezy. She had an albuterol neb, did improve in terms of oxygenation, O2 sats about 90% but remained on 3 L of oxygen. She had of bolus of magnesium, Solu-Medrol 125 mg IV, continues to feel improved but continues to require oxygen at 3 L to keep O2 sats above 90. She notes that she does feel that she let things get too far this time and she is not surprised that she is not bouncing completely back. Other diagnostic considerations would include pneumonia, pneumothorax, pulmonary embolism, congestive heart failure among others. I did do a chest x-ray, this is clear without evidence of pneumothorax, infiltrate, pleural effusion etcetera. I also did a D-dimer which was negative. A venous gas was normal. She is improved after treatment here but remains oxygen dependent and I think will need additional time in the hospital. She is agreeable to this. She is maintained on oxygen, discussed with hospitalist, admitted to the hospitalist service. Vital Signs Vital signs: Initial Vital Signs Temperature 97.5 F L 03/27/25 10:19 Temperature Source Temporal Artery Scan 03/27/25 10:19 Pulse Rate 105 H 03/27/25 10:19 Respiratory Rate 42 H 03/27/25 10:19 Blood Pressure 143/100 H 03/27/25 10:19 Blood Pressure Mean 114 H 03/27/25 10:19 Blood Pressure Position Sitting 03/27/25 10:19 Pulse Oximetry 81 L 03/27/25 10:19 Oxygen Delivery Method Room Air 03/27/25 10:19 Vital Signs Temperature 97.5 F L 03/27/25 10:19 Pulse Rate 105 H 03/27/25 10:19 Respiratory Rate 42 H 03/27/25 10:19 Blood Pressure 143/100 H 03/27/25 10:19 Pulse Oximetry 81 L 03/27/25 10:19 Oxygen Delivery Method Room Air 03/27/25 10:19 Temperature 98.1 F 03/27/25 15:00 Pulse Rate 88 03/27/25 15:00 Respiratory Rate 20 03/27/25 15:00 Blood Pressure 122/72 03/27/25 15:00 Pulse Oximetry 96 03/27/25 15:00 Oxygen Delivery Method Nasal Cannula 03/27/25 15:00 Oxygen Flow Rate 1 03/27/25 15:00 Medications Administered Medications: Discontinued Medications Generic Name Dose Route Start Last Admin Trade Name Freq PRN Reason Stop Dose Admin Albuterol 2.5 mg 03/27/25 10:56 03/27/25 11:09 Albuterol Sulfate 2.5 Mg/3 Ml Vial.Neb NEB 03/27/25 10:57 2.5 mg ONCE ONE Administration Albuterol 2.5 mg 03/27/25 11:52 03/27/25 11:59 Albuterol Sulfate 2.5 Mg/3 Ml Vial.Lorenzo LESLIE 03/27/25 11:53 2.5 mg ONCE ONE Administration Albuterol/Ipratropium 1 [facility] 03/27/25 10:35 03/27/25 10:35 Iprat-Albut 0.5-2.5 Mg/3 Ml [facility] 03/27/25 10:36 1 neb ONCE ONE Administration Albuterol/Ipratropium 1 [facility] 03/27/25 11:14 03/27/25 11:09 Iprat-Albut 0.5-2.5 Mg/3 Ml [facility] 03/27/25 11:15 1 [facility] ONCE ONE Administration Magnesium Sulfate 2 gm in 50 mls @ 150 mls/hr 03/27/25 10:43 03/27/25 11:16 Magnesium Iv IVPB 03/27/25 11:02 Infused ONCE ONE Infusion Methylprednisolone Sodium Succinate 125 mg 03/27/25 10:56 03/27/25 11:10 Methylprednisolone Sod Succ 62.5 Mg/Ml (125) IVP 03/27/25 10:57 125 mg ONCE ONE Administration Medical Decision Making Lab Data Labs: Lab Results 03/27/25 Range/Units 10:35 WBC 8.82 (4.50-11.00) K/uL RBC 5.25 H (4.00-5.20) m/uL Hgb 16.1 H (12.0-16.0) gm/dL Hct 45.9 (33.0-51.0) % MCV 87 (80-100) fL MCH 31 (26-34) pg MCHC 35 (32-36) gm/dL RDW Coeff of Ritu 11.9 (11.5-15.5) % Plt Count 319 (140-440) K/uL Neut % (Auto) 55.7 (42.0-72.0) % Lymph % (Auto) 35.9 (20-44) % Lander % (Auto) 5.7 (0.0-11.0) % Eos % (Auto) 2.3 (0.0-7.0) % Baso % (Auto) 0.3 (0.0-3.0) % Neut # (Auto) 4.91 (1.7-7.0) K/uL Lymph # (Auto) 3.17 H (0.90-2.90) K/uL Lander # (Auto) 0.50 (0.00-0.90) K/UL Eos # (Auto) 0.20 (0.00-0.50) K/uL Baso # (Auto) 0.03 (0.00-0.30) K/uL Abs Immat Gran (auto) 0.01 (0.00-0.30) K/uL Imm/Tot Granulo (auto) 0.1 % D-Dimer Quant (PE/DVT) 0.29 (0.00-0.50) ug/ml VBG pH 7.376 (7.32-7.43) VBG pCO2 45 (40-50) mmHG VBG pO2 30.9 (25-47) mmHG VBG HCO3 26 (21-28) mmol/L Sodium 139 (135-149) mmol/L Potassium 4.1 (3.6-5.1) mmol/L Chloride 106 (96-114) mmol/L Carbon Dioxide 23 (20-32) mmol/L Anion Gap 10 (7-15) mEq/L BUN 10 (5-24) mg/dL Creatinine 0.8 (0.5-1.5) mg/dL Estimated Creat Clear 89.08 Estimated GFR 94 ml/min Glucose 101 (60-115) mg/dL Calcium 9.5 (8.4-10.6) mg/dL C-Reactive Protein < 0.5 L (0.5-1.0) mg/dL Discharge Plan Discharge Clinical Impression: Asthma with acute exacerbation Patient Disposition: Admitted As Observation Condition: Improved
--- NOTE | 2025-03-27 16:18 | PM.IMHP1 ---
Assessment and Plan Assessment and plan (1) Asthma with acute exacerbation: Problem comment: Prednisone and continued inhaled therapies. Hypoxia on admission. Clinically much better since admission. Status: Acute (2) Upper respiratory infection: Problem comment: Prior to admission had 1 week of treatment with Augmentin. Does not appear to need any further antibiotics. Status: Acute Plan Patient with asthma exacerbation and hypoxia. Now clinically improved. Anticipate ongoing improvement in possible discharge tomorrow with short course of prednisone Total Time Spent Total Time Spent: Total time spent today is 60 minutes in review of outside records and coordination of care and discussing with patient other providers management of asthma exacerbation. Hospitalist- H&P: HPI History of Present Illness Date Seen: 03/27/25 Chief complaint: asthma Narrative: Sanam Ramos is a 44 year old female with asthma admitted through the emergency department with a 1 week history of upper respiratory illness and progressive dyspnea. She reports that about a week ago she began having a sinus infection. She was started on Augmentin for this. She noted that over the next few days that she had worsening of her asthma. She reports waking up 3 or 4 times at night to take nebulizer treatments. The seem to be working less and less for her. Yesterday she was seen in clinic where she was diagnosed with an asthma exacerbation and started on prednisone 20 mg daily. She reports that she has continued to feel worse and presents the in [facility] Emergency Department for evaluation. She has not had a fever. She reports her upper respiratory symptoms are much improved. She has no chest pain. She did have nausea and vomited once earlier today. She attributed that to her asthma exacerbation rather than any other gastrointestinal symptoms. Her nausea has resolved. She was diagnosed with asthma at age 36. She sees mediation commissioner through [facility]. She is compliant with her therapy except she was on Dupixent until a year ago. She developed some arthritis and the insurance company would no longer pay for the Dupixent. She reports on Dupixent she was doing very well with her asthma. Apparently she has been prescribed a new biologic medication to try for her asthma. She is also taking Trelegy Ellipta, budesonide nebulizer treatments, albuterol rescue inhaler and nebulizers. She also takes montelukast. She continues to smoke cigarettes. She has been hospitalized for asthma in the past but never intubated. Review of Systems Narrative: Other than symptoms above she reports she has generally been doing well. Medical Decision Making Medical Decision Making Has patient completed a Health Care Directive: No During This Stay, Who Would You Like To Make Decisions For You In The Event You Are Unable To Make Them For Yourself?: Grey Ramos [facility] Medical History (Updated 03/27/25 @ 16:30 by Phillip Lovell MD) Anxiety ?F41.9 - Anxiety disorder, unspecified (ICD-10) Depression ?F32.A - Depression, unspecified (ICD-10) Asthma ?J45.909 - Unspecified asthma, uncomplicated (ICD-10) Surgical History (Updated 03/27/25 @ 16:25 by Phillip Lovell MD) History of sinus surgery ?Z98.890 - Other specified postprocedural states (ICD-10) History of colposcopy ?Z98.890 - Other specified postprocedural states (ICD-10) Family History (Updated 03/27/25 @ 16:26 by Phillip Lovell MD) Grandfather Colon cancer Aunt Breast cancer Brother Asthma Social History (Updated 03/27/25 @ 16:27 by Phillip Lovell MD) Narrative: She lives in [place] with her Grey, her 18-year-old son and her daughter who is currently in college. 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 Code status is full. She rarely drinks alcohol. She is a smoker. Smoking Status: Current every day smoker Second hand tobacco smoke exposure: Yes How often do you have a drink containing alcohol: never AUDIT-C Alcohol total score: 0 Non-prescribed substance use: denies use Meds Home Medications and Allergies Home Medications ?Medication ?Instructions ?Recorded ?Confirmed ?Type albuterol sulfate 90 mcg/actuation 2 inh inhalation Q4H PRN 09/11/24 03/27/25 History aerosol inhaler aripiprazole 5 mg tablet 5 mg PO DAILY 09/11/24 03/27/25 History bupropion HCl 300 mg 24 hr tablet, 300 mg PO DAILY 09/11/24 03/27/25 History extended release fluticasone fur. 200 mcg-umeclid 1 inh inhalation DAILY 09/11/24 03/27/25 History 62.5 mcg-vilant 25 mcg inhalat.powder (Trelegy Ellipta) hydroxyzine HCl 10 mg tablet 10 mg PO BID PRN 09/11/24 03/27/25 History montelukast 10 mg tablet 10 mg PO HS 09/11/24 03/27/25 History omeprazole 20 mg capsule,delayed 20 mg PO DAILY 09/11/24 03/27/25 History release semaglutide (weight loss) 2.4 2.4 mg subcut Q7D 09/11/24 03/27/25 History mg/0.75 mL subcutaneous pen injector (Kim) albuterol sulfate 2.5 mg/3 mL 2.5 mg inhalation Q2H PRN 03/27/25 03/27/25 History (0.083 %) solution for nebulization amoxicillin 875 mg-potassium 1 tab PO BID 03/27/25 03/27/25 History clavulanate 125 mg tablet benralizumab 30 mg/mL subcutaneous 30 mg subcut Q4W 03/27/25 03/27/25 History auto-injector (Fasenra Pen) budesonide 0.25 mg/2 mL suspension 0.25 mg inhalation BID 03/27/25 03/27/25 History for nebulization cetirizine 10 mg tablet 10 mg PO DAILY 03/27/25 03/27/25 History cholecalciferol (vitamin D3) 50 50 mcg PO DAILY 03/27/25 03/27/25 History mcg (2,000 unit) tablet fluoxetine 40 mg capsule 40 mg PO DAILY 03/27/25 03/27/25 History ipratropium 0.5 mg-albuterol 3 mg 3 ml inhalation Q6H PRN 03/27/25 03/27/25 History (2.5 mg base)/3 mL nebulization soln multivitamin 1 tab PO DAILY 03/27/25 03/27/25 History prednisone 20 mg tablet 20 mg PO DAILY 03/27/25 03/27/25 History trazodone 150 mg tablet 150 mg PO HS PRN 03/27/25 03/27/25 History Home Medication Comments: Primary care provider often has her keep a prescription of prednisone to use as needed for exacerbations Allergies Allergy/AdvReac Type Severity Reaction Status Date / Time ibuprofen Allergy Severe resp Verified 03/27/25 10:24 distress aspirin AdvReac Verified 03/27/25 10:24 cephalexin (From Keflex) AdvReac Verified 03/27/25 10:24 Exam Narrative: Exam Narrative: She is alert and appears in no distress. Breathing is unlabored on supplemental oxygen per nasal cannula. Oropharynx is normal. Neck is supple without mass or adenopathy. Respirations with occasional basilar wheezes and crackles. Air exchange is fair. Cardiovascular: S1, S2, regular rate and rhythm. Abdomen: Bowel sounds active. Abdomen is soft without tenderness or mass. Extremities with good perfusion and pulses. There is no rash. No clubbing. Const: Vital Signs, click to edit/add: Vital Signs - 24 hr 03/27/25 10:19 03/27/25 10:36 03/27/25 10:45 Temperature 97.5 F L Pulse Rate 102 H 96 Pulse Rate [Left P ulse Oximeter] Pulse Rate [Pulse Oximeter] 105 H Respiratory Rate 42 H 23 21 Blood Pressure Blood Pressure [Ri ght Arm] Blood Pressure [Ri ght Upper Arm] 143/100 H Pulse Oximetry 81 L 92 88 Oxygen Delivery Me thod Room Air Oxygen Flow Rate 03/27/25 10:46 03/27/25 10:48 03/27/25 10:48 Temperature Pulse Rate 102 H Pulse Rate [Left P ulse Oximeter] Pulse Rate [Pulse Oximeter] Respiratory Rate 17 Blood Pressure 147/100 H Blood Pressure [Ri ght Arm] Blood Pressure [Ri ght Upper Arm] Pulse Oximetry 91 91 81 L Oxygen Delivery Me thod Nasal Cannula Oxygen Flow Rate 3 03/27/25 11:00 03/27/25 11:01 03/27/25 11:02 Temperature Pulse Rate 86 95 100 Pulse Rate [Left P ulse Oximeter] Pulse Rate [Pulse Oximeter] Respiratory Rate 15 21 Blood Pressure 110/97 H Blood Pressure [Ri ght Arm] Blood Pressure [Ri ght Upper Arm] Pulse Oximetry 88 89 88 Oxygen Delivery Me thod Oxygen Flow Rate 03/27/25 11:15 03/27/25 11:17 03/27/25 11:17 Temperature Pulse Rate 91 98 Pulse Rate [Left P ulse Oximeter] Pulse Rate [Pulse Oximeter] Respiratory Rate 24 18 Blood Pressure 122/92 H Blood Pressure [Ri ght Arm] Blood Pressure [Ri ght Upper Arm] Pulse Oximetry 94 92 93 Oxygen Delivery Me thod Nasal Cannula Oxygen Flow Rate 3 03/27/25 11:30 03/27/25 11:31 03/27/25 11:45 Temperature Pulse Rate 90 90 88 Pulse Rate [Left P ulse Oximeter] Pulse Rate [Pulse Oximeter] Respiratory Rate 17 16 21 Blood Pressure 127/83 Blood Pressure [Ri ght Arm] Blood Pressure [Ri ght Upper Arm] Pulse Oximetry 90 91 90 Oxygen Delivery Me thod Oxygen Flow Rate 03/27/25 11:46 03/27/25 11:47 03/27/25 12:00 Temperature Pulse Rate 89 89 92 Pulse Rate [Left P ulse Oximeter] Pulse Rate [Pulse Oximeter] Respiratory Rate 20 20 Blood Pressure 123/84 Blood Pressure [Ri ght Arm] Blood Pressure [Ri ght Upper Arm] Pulse Oximetry 90 90 96 Oxygen Delivery Me thod Nasal Cannula Oxygen Flow Rate 3 03/27/25 12:01 03/27/25 12:15 03/27/25 12:16 Temperature Pulse Rate 95 95 90 Pulse Rate [Left P ulse Oximeter] Pulse Rate [Pulse Oximeter] Respiratory Rate 13 17 22 Blood Pressure 112/87 122/80 Blood Pressure [Ri ght Arm] Blood Pressure [Ri ght Upper Arm] Pulse Oximetry 97 93 91 Oxygen Delivery Me thod Oxygen Flow Rate 03/27/25 12:30 03/27/25 12:31 03/27/25 12:45 Temperature Pulse Rate 96 85 94 Pulse Rate [Left P ulse Oximeter] Pulse Rate [Pulse Oximeter] Respiratory Rate 18 20 21 Blood Pressure 117/74 Blood Pressure [Ri ght Arm] Blood Pressure [Ri ght Upper Arm] Pulse Oximetry 91 91 91 Oxygen Delivery Me thod Oxygen Flow Rate 03/27/25 12:46 03/27/25 14:19 03/27/25 15:00 Temperature 98.1 F Pulse Rate 91 Pulse Rate [Left P ulse Oximeter] 92 88 Pulse Rate [Pulse Oximeter] Respiratory Rate 21 20 24 Blood Pressure 118/70 Blood Pressure [Ri ght Arm] 131/81 Blood Pressure [Ri ght Upper Arm] Pulse Oximetry 89 91 Oxygen Delivery Me thod Room Air Nasal Cannula Oxygen Flow Rate 3 3 03/27/25 15:00 03/27/25 15:00 Temperature 98.1 F Pulse Rate Pulse Rate [Left P ulse Oximeter] 88 Pulse Rate [Pulse Oximeter] Respiratory Rate 20 20 Blood Pressure Blood Pressure [Ri ght Arm] 122/72 Blood Pressure [Ri ght Upper Arm] Pulse Oximetry 96 96 Oxygen Delivery Me thod Nasal Cannula Nasal Cannula Oxygen Flow Rate 1 1 Documenting provider has reviewed patient's vital signs: yes Hospitalist - H&P: Result Labs Labs: Short CBC 03/27/25 Range/Units 10:35 WBC 8.82 (4.50-11.00) K/uL Hgb 16.1 H (12.0-16.0) gm/dL Hct 45.9 (33.0-51.0) % Plt Count 319 (140-440) K/uL BMP 03/27/25 10:35 Sodium 139 Potassium 4.1 Chloride 106 Carbon Dioxide 23 BUN 10 Creatinine 0.8 Glucose 101 Calcium 9.5 Imaging Chest x-ray: Radiologist's impression: INDICATION: Shortness of breath. TECHNIQUE: Chest 1 views. COMPARISON: 09/11/2024. FINDINGS: Cardiovasculature and mediastinum: Heart size is normal. Unremarkable mediastinum. Lungs and pleural spaces: Lungs are clear. No sign of infiltrate or mass. No sign of pleural effusion. No pneumothorax. Bones and soft tissues: No significant findings. IMPRESSION: Negative chest.
[2025-03-27] MEDS: hydrOXYzine pamoate 25 MG CAPSULE PO (18:31)
--- NOTE | 2025-03-27 18:35 | PC.NURSE ---
Patient titrated down to 1 liter O2 via NC with saturations @ 97%.
[2025-03-27] MEDS: BUDESONIDE 0.25 MG/2 ML AMPUL.NEB NEB (20:56)
[2025-03-27] MEDS: TRAZODONE HCL 50 MG TABLET 150 MG PO (20:57)
[2025-03-27] MEDS: MONTELUKAST 10 MG TABLET PO (20:58)
[2025-03-27] MEDS: SODIUM CHLORIDE 0.9 % (FLUSH) 10 ML SYRINGE 5 ML IVF (20:58)
--- NOTE | 2025-03-27 23:01 | PC.NURSE ---
Patient ambulates independently in room. Patient maintaining Oxygen saturations with 1 Liter O2 via NC. Patient utilizing prn medications for anxiety. Patient received nebulizers as ordered.
[2025-03-28] VITALS (8 sets, daily range): BP systolic 100–123; BP diastolic 55–79; PULSE 83–88; RESP 16–18; TEMP 36.8–37.1; O2SAT 84–97
[2025-03-28] MEDS: IPRAT-ALBUT 0.5-2.5 MG/3 ML NEB 1 NEB IH ×3 (05:38→18:01)
[2025-03-28] MEDS: OMEPRAZOLE 20 MG CAPSULE DR PO (06:04)
--- NOTE | 2025-03-28 06:24 | PC.NURSE ---
End of shift note [id number]: Pt A&Ox4 and able to make needs known. She has been denying pain and N/V when asked. Pt tolerating regular diet. Pt on 1 LPM oxygen via NC overnight in order to maintain O2 sats per order. She has been afebrile throughout the shift. Pt independent with transferring and ambulation. Inspiratory and expiratory wheezing noted to all lobes bilaterally with PRN neb treatments given. Pt refused gripper socks when encouraged. Call light within reach.
--- NOTE | 2025-03-28 11:14 | PM.IMPN1 ---
Assessment and Plan Assessment and plan (1) Acute hypoxemic respiratory failure: Problem comment: Secondary to asthma exacerbation. Oxygen at 84% on room air last night when oxygen fell off while she was sleeping. Attempt to wean oxygen today if possible. Status: Acute (2) Asthma with acute exacerbation: Problem comment: More wheezy today. Continue Prednisone at 60 mg daily. I think she has not been getting enough albuterol nebs, especially overnight. Schedule albuterol nebs for q.2 hours during the day and q.4 hours at night. Appreciate our RT recommendations. Status: Acute (3) Upper respiratory infection: Problem comment: Prior to admission had 1 week of treatment with Augmentin. Does not appear to need any further antibiotics. Status: Acute (4) RLQ abdominal pain: Problem comment: Due to acute right lower quadrant pain, I have obtained a CT abdomen and pelvis with contrast which is unremarkable. His suspect her pain is secondary to Wagovy, if it is persistent, could do pelvic ultrasound as patient has had ovarian cysts in the past. Currently she has a Mirena IUD and does not have cycles. Status: Acute Plan Patient with asthma exacerbation and hypoxia. Now clinically improved. Anticipate ongoing improvement in possible discharge tomorrow with short course of prednisone Total Time Spent Total Time Spent: Today I spent 50 minutes seeing the patient, reviewing [facility] and [facility] notes/diagnostics/labs, discussing the care plan with our care team that includes social work, PT/OT, pharmacy, RT, retirement and documenting my impressions and plan in the medical record. Subjective Time Seen by Provider: 11:00 Date Seen: 03/28/25 Interval history: Sanam continues to feel short of breath, especially with activity. She feels tight and wheezy yet this morning. Her last neb was at 7:00 a.m.. She also complains of cramping abdominal pain, especially in the right lower quadrant. She sometimes gets this after taking her Wegovy shot, which she took last Saturday, but is worse than ever. Exam Narrative: Exam Narrative: General: No acute distress. Awake, alert, oriented x3. No pallor. No jaundice. Oropharynx: Clear. Mucous membranes moist. Cardiovascular: Regular rate and rhythm. No murmurs, gallops, or rubs. Respiratory: Tight, expiratory wheezes throughout. Abdomen: Bowel sounds present. Soft, nondistended, point tender in the right lower quadrant, no rebound tenderness or guarding, no masses or about a splenomegaly. Extremities: No lower extremity edema. Const: Vital Signs, click to edit/add: Vital Signs - 24 hr 03/27/25 11:15 03/27/25 11:17 03/27/25 11:17 Temperature Pulse Rate 91 98 Pulse Rate [Left P ulse Oximeter] Respiratory Rate 24 18 Blood Pressure 122/92 H Blood Pressure [Ri ght Arm] Pulse Oximetry 94 92 93 Oxygen Delivery Me thod Nasal Cannula Oxygen Flow Rate 3 03/27/25 11:30 03/27/25 11:31 03/27/25 11:45 Temperature Pulse Rate 90 90 88 Pulse Rate [Left P ulse Oximeter] Respiratory Rate 17 16 21 Blood Pressure 127/83 Blood Pressure [Ri ght Arm] Pulse Oximetry 90 91 90 Oxygen Delivery Me thod Oxygen Flow Rate 03/27/25 11:46 03/27/25 11:47 03/27/25 12:00 Temperature Pulse Rate 89 89 92 Pulse Rate [Left P ulse Oximeter] Respiratory Rate 20 20 Blood Pressure 123/84 Blood Pressure [Ri ght Arm] Pulse Oximetry 90 90 96 Oxygen Delivery Me thod Nasal Cannula Oxygen Flow Rate 3 03/27/25 12:01 03/27/25 12:15 03/27/25 12:16 Temperature Pulse Rate 95 95 90 Pulse Rate [Left P ulse Oximeter] Respiratory Rate 13 17 22 Blood Pressure 112/87 122/80 Blood Pressure [Ri ght Arm] Pulse Oximetry 97 93 91 Oxygen Delivery Me thod Oxygen Flow Rate 03/27/25 12:30 03/27/25 12:31 03/27/25 12:45 Temperature Pulse Rate 96 85 94 Pulse Rate [Left P ulse Oximeter] Respiratory Rate 18 20 21 Blood Pressure 117/74 Blood Pressure [Ri ght Arm] Pulse Oximetry 91 91 91 Oxygen Delivery Me thod Oxygen Flow Rate 03/27/25 12:46 03/27/25 14:19 03/27/25 14:19 Temperature 98.1 F Pulse Rate 91 Pulse Rate [Left P ulse Oximeter] 92 Respiratory Rate 21 20 20 Blood Pressure 118/70 Blood Pressure [Ri ght Arm] 131/81 Pulse Oximetry 89 91 96 Oxygen Delivery Me thod Room Air Nasal Cannula Nasal Cannula Oxygen Flow Rate 3 3 1 03/27/25 15:00 03/27/25 15:00 03/27/25 15:00 Temperature 98.1 F Pulse Rate Pulse Rate [Left P ulse Oximeter] 88 88 Respiratory Rate 24 20 20 Blood Pressure Blood Pressure [Ri ght Arm] 122/72 Pulse Oximetry 96 96 Oxygen Delivery Me thod Nasal Cannula Nasal Cannula Oxygen Flow Rate 1 1 03/27/25 18:22 03/27/25 23:00 03/27/25 23:30 Temperature 97.7 F 98.2 F Pulse Rate Pulse Rate [Left P ulse Oximeter] 97 87 87 Respiratory Rate 20 18 18 Blood Pressure Blood Pressure [Ri ght Arm] 110/63 106/73 Pulse Oximetry 97 93 Oxygen Delivery Me thod Nasal Cannula Nasal Cannula Oxygen Flow Rate 1 1 03/27/25 23:34 03/28/25 03:28 03/28/25 03:32 Temperature 98.5 F Pulse Rate Pulse Rate [Left P ulse Oximeter] 86 Respiratory Rate 18 18 Blood Pressure Blood Pressure [Ri ght Arm] 109/64 Pulse Oximetry 93 84 L 94 Oxygen Delivery Me thod Nasal Cannula Room Air Room Air Oxygen Flow Rate 1 1 03/28/25 07:00 03/28/25 07:00 03/28/25 07:00 Temperature 98.7 F Pulse Rate Pulse Rate [Left P ulse Oximeter] 88 88 Respiratory Rate 18 18 18 Blood Pressure Blood Pressure [Ri ght Arm] 121/79 Pulse Oximetry 92 92 Oxygen Delivery Me thod Room Air Room Air Oxygen Flow Rate Labs Labs: Laboratory Results - last 24 hr 03/27/25 10:35 D-Dimer Quant (PE/DVT) 0.29 C-Reactive Protein < 0.5 L Ordering Physician: Britta Thompson M.D. Date of Service: 03/28/25 Procedure(s): CT abdomen pelvis w con Accession Number(s): [id number] cc: Britta Thompson M.D.; Provider,Not a Local~ For Patients: As a result of the Cures Act, medical imaging exams and procedure reports are released immediately into your electronic medical record. You may view this report before your referring provider. If you have questions, please contact your health care provider. INDICATION: Right lower quadrant pain. Leukocytosis. TECHNIQUE: CT abdomen and pelvis acquired with 94 cc Isovue 370 IV contrast. COMPARISON: None. FINDINGS: Lower chest: Unremarkable. Liver: Unremarkable. Normal in size and attenuation. No suspicious masses. Gallbladder and bile ducts: Unremarkable. No stones or inflammation. No biliary dilatation. Pancreas: Unremarkable. No mass or inflammation. Spleen: Unremarkable. Normal in size. No masses. Adrenal glands: Unremarkable. No nodules. Kidneys: Unremarkable. No suspicious masses, stones, or hydronephrosis. GI tract: Unremarkable. Normal in caliber. No sign of mass or inflammation. Normal appendix. Vasculature: Abdominal aorta is normal in caliber. Mesenteric arteries are patent. Lymph nodes: No lymphadenopathy. Peritoneum/Abdominal Wall: Unremarkable. No sign of mass or infiltration. No free air or significant free fluid. Pelvis: IUD in satisfactory position. Small pedunculated fibroid off the uterine fundus. Otherwise unremarkable pelvis. Bones: Unremarkable for age. IMPRESSION: No acute or specific findings to explain right lower quadrant pain or leukocytosis. Specifically the appendix and GI tract are normal. Please note that all CT scans at this facility use dose modulation, iterative reconstruction, and/or weight-based dosing when appropriate to reduce radiation dose to as low as reasonably achievable. Dictated by Dain Jarvis MD @ 03/28/2025 3:08:42 PM (Electronically Signed)
[2025-03-28] MEDS: predniSONE 20 MG TABLET 60 MG PO (11:33)
[2025-03-28] MEDS: BUDESONIDE 0.25 MG/2 ML AMPUL.NEB NEB ×2 (11:35→21:27)
[2025-03-28] MEDS: SODIUM CHLORIDE 0.9 % (FLUSH) 10 ML SYRINGE 5 ML IVF ×2 (11:46→21:27)
[2025-03-28 12:00] LABS: Basophils Percent Auto 0.1 % (0.0-3.0); Eosinophils Percent Auto 0.1 % (0.0-7.0); Hematocrit 36.8 % (33.0-51.0); Hemoglobin* 13.1 gm/dL (12.0-16.0); Immature Granulocytes Pct Auto 0.2 %; Lymphocytes Percent Auto 20.6 % (20-44); Mean Corpuscular HGB Conc 36 gm/dL (32-36); Mean Corpuscular Hemoglobin 31 pg (26-34); Mean Corpuscular Volume 87 fL (80-100); Monocytes Percent Auto 6.3 % (0.0-11.0); Neutrophils Percent Auto 72.7 % (42.0-72.0); Platelet Count* 309 K/uL (140-440); Red Blood Count 4.21 m/uL (4.00-5.20); White Blood Count* 13.09 K/uL (4.50-11.00)
[2025-03-28 12:12] LABS: Slide Review Reflex No
[2025-03-28 12:14] LABS: Chloride* 108 mmol/L (96-114); Potassium* 3.6 mmol/L (3.6-5.1); Sodium* 136 mmol/L (135-149)
[2025-03-28 12:18] LABS: Anion Gap 8 mEq/L (7-15); Blood Urea Nitrogen* 18 mg/dL (5-24); Calcium* 8.9 mg/dL (8.4-10.6); Carbon Dioxide* 20 mmol/L (20-32); Creatinine* 0.8 mg/dL (0.5-1.5); Est. Creatinine Clearance* 89.08; Estimated Glomerular Filt Rate 94 ml/min; Glucose* 117 mg/dL (60-115)
[2025-03-28 12:25] LABS: C Reactive Protein* < 0.5 mg/dL (0.5-1.0)
--- NOTE | 2025-03-28 12:35 | CRLHL7_ITS ---
For Patients: As a result of the Century Cures Act, medical imaging exams and procedure reports are released immediately into your electronic medical record. You may view this report before your referring provider. If you have questions, please contact your health care provider. INDICATION: Right lower quadrant pain. Leukocytosis. TECHNIQUE: CT abdomen and pelvis acquired with 94 cc Isovue 370 IV contrast. COMPARISON: None. FINDINGS: Lower chest: Unremarkable. Liver: Unremarkable. Normal in size and attenuation. No suspicious masses. Gallbladder and bile ducts: Unremarkable. No stones or inflammation. No biliary dilatation. Pancreas: Unremarkable. No mass or inflammation. Spleen: Unremarkable. Normal in size. No masses. Adrenal glands: Unremarkable. No nodules. Kidneys: Unremarkable. No suspicious masses, stones, or hydronephrosis. GI tract: Unremarkable. Normal in caliber. No sign of mass or inflammation. Normal appendix. Vasculature: Abdominal aorta is normal in caliber. Mesenteric arteries are patent. Lymph nodes: No lymphadenopathy. Peritoneum/Abdominal Wall: Unremarkable. No sign of mass or infiltration. No free air or significant free fluid. Pelvis: IUD in satisfactory position. Small pedunculated fibroid off the uterine fundus. Otherwise unremarkable pelvis. Bones: Unremarkable for age. IMPRESSION: No acute or specific findings to explain right lower quadrant pain or leukocytosis. Specifically the appendix and GI tract are normal. Please note that all CT scans at this facility use dose modulation, iterative reconstruction, and/or weight-based dosing when appropriate to reduce radiation dose to as low as reasonably achievable. Dictated by Dain Jarvis MD @ 03/28/2025 3:08:42 PM (Electronically Signed)
--- NOTE | 2025-03-28 14:03 | RESP.RT ---
Pt seen this AM. OFf of oxygen and taking a neb. RA SPO2 is 94% BBS with diffuse inspiratory and expiratroy wheezing. fair aeration. Did check a peak flow which is 300l/min. Normal is 325-435 for a woman her age and height. THis is 70% of predicted normal which puts her in the caution yellow zone. PT with excellent understanding of her asthmatic condition and will be starting a new biologic medication via her pulmonary group. Feel that she would benefit from one more night here. She agrees, provider notified. Goal to have her start getting out of bed to chair and moving around a little bit in room, or short hallway walks.
[2025-03-28] MEDS: ALBUTEROL SULFATE 2.5 MG/3 ML VIAL.NEB NEB ×3 (15:55→22:34)
--- NOTE | 2025-03-28 19:01 | PC.NURSE ---
[id number]: Patient receiving Scheduled and PRN nebs. Oral prednisone. Did not take other AM pills due to abdominal pain/nausea. Reported abdominal pain to Dr. Thompson. CT ordered and results were unremarkable. Pt's lung sounds still remain wheezy. On room air for shift. Oxygen saturations checked while up walking the kwon. Patient dipped as low as 85% with ambulation.
[2025-03-28] MEDS: MONTELUKAST 10 MG TABLET PO (21:27)
[2025-03-29] MEDS: ALBUTEROL SULFATE 2.5 MG/3 ML VIAL.NEB NEB ×6 (02:59→15:03)
[2025-03-29 03:00] VITALS: BP 119/79; PULSE 97; RESP 18; TEMP 37; O2SAT 94
[2025-03-29] MEDS: OMEPRAZOLE 20 MG CAPSULE DR PO (06:23)
[2025-03-29] MEDS: polyethylene glycoL 3350 17 GM PACK PO (06:27)
--- NOTE | 2025-03-29 06:49 | PC.NURSE ---
End of shift note [id number]: Pt A&Ox 4 and able to make needs known. She is continent of bladder and is transferring/ambulating independently. Scheduled nebs given per orders. VSS- pt has been afebrile and on RA all shift. Lung sounds noted to be clear to all lobes bilaterally. Pt has been denying nausea when asked throughout the shift and is tolerating regular diet. Pt reporting she has had ongoing intermittent abdominal pain with CT performed yesterday. PRN Miralax given this morning to promote BM as pt's last BM reported to be 03/26/25. Pt requested to take PRN Miralax instead of PRN Colace. Call light within reach.
[2025-03-29] MEDS: ONDANSETRON 2 MG/ML inj 4 MG IVP (07:30)
[2025-03-29 07:40] VITALS: BP 141/90; PULSE 76; RESP 20; TEMP 36.6; O2SAT 97
[2025-03-29 09:15] VITALS: PULSE 83; RESP 16; RESP 18; O2SAT 97
[2025-03-29] MEDS: DOCUSATE SODIUM 100 MG CAPSULE PO (09:35)
[2025-03-29] MEDS: MULTIVITAMIN/MINERALS 1 TABLET 1 TAB PO (09:35)
[2025-03-29] MEDS: CETIRIZINE HCL 10 MG TABLET PO (09:36)
[2025-03-29] MEDS: predniSONE 20 MG TABLET 60 MG PO (09:36)
[2025-03-29] MEDS: BUDESONIDE 0.25 MG/2 ML AMPUL.NEB NEB (09:47)
[2025-03-29 11:23] VITALS: BP 125/76; PULSE 72; TEMP 36.9; O2SAT 95
[2025-03-29] MEDS: SODIUM CHLORIDE 0.9 % (FLUSH) 10 ML SYRINGE 5 ML IVF (11:30)
--- NOTE | 2025-03-29 13:56 | PM.DS1 ---
DS: Providers Provider Time Seen by Provider: 11:52 Date Seen: 03/29/25 Date of admission: 03/28/25 15:49 Primary care physician: Not a Local Provider Admitting Clinician: Britta Thompson MD Attending Physician on discharge: Britta Thompson MD Date of Discharge: 03/29/25 DS: Diagnosis Discharge Diagnosis (1) Acute hypoxemic respiratory failure: Status: Acute Problem details: Secondary to asthma exacerbation. 03/28 Oxygen at 84% on room air last night when oxygen fell off while she was sleeping. Attempt to wean oxygen today if possible. 03/29 Satting well on RA. Breathing more easily. D/c home. (2) Asthma with acute exacerbation: Status: Acute Problem details: 03/28 More wheezy today. Continue Prednisone at 60 mg daily. I think she has not been getting enough albuterol nebs, especially overnight. Schedule albuterol nebs for q.2 hours during the day and q.4 hours at night. Appreciate our RT recommendations. 03/29 Improving. Off oxygen. D/c home. (3) RLQ abdominal pain: Status: Acute Problem details: 03/28 Due to acute right lower quadrant pain, I have obtained a CT abdomen and pelvis with contrast which is unremarkable. His suspect her pain is secondary to Wagovy, if it is persistent, could do pelvic ultrasound as patient has had ovarian cysts in the past. Currently she has a Mirena IUD and does not have cycles. 03/[address] abd/pelvis reassuring. Noted last BM was 03/26, feels constipated. Took miralax and docusate this morning, then felt more painful/cramping. She then started ambulating in hallway and felt better, desired discharge home. (4) Upper respiratory infection: Status: Acute Problem details: Prior to admission had 1 week of treatment with Augmentin. Does not appear to need any further antibiotics. DS: Summary Hospital Course Hospital Course: 44-year-old female with asthma who continues to smoke distended for a week of upper respiratory illness with progressive dyspnea. She was taking Augmentin for a sinus infection and had been seen in the clinic day before admission and was started on prednisone 20 mg a day she felt worse and also had abdominal pain, nausea, and 1 emesis. In the emergency department she required several albuterol nebs and received Solu-Medrol without adequate improvement, so she was admitted. Overnight she started to develop abdominal pain that was localized in the right lower quadrant. CT abdomen and pelvis with contrast was unremarkable. She was tighter and with more wheezes on the 2nd hospital day, so nebulizer frequency was increased. She did well with that and by today she was much improved. Abdominal pain was still present this morning, but had improved with ambulation by this afternoon. She is discharged home in improved condition. Time Spent with Patient Time attestation: Total time spent providing and/or coordinating discharge services: Exam Narrative: Exam Narrative: General: No acute distress. Awake, alert, oriented x3. No pallor. No jaundice. Oropharynx: Clear. Mucous membranes moist. Cardiovascular: Regular rate and rhythm. No murmurs, gallops, or rubs. Respiratory: Better air movement today, scattered expiratory wheezes throughout. No crackles. Abdomen: Bowel sounds present. Soft, nondistended, mildly tender in the right lower quadrant, no rebound tenderness or guarding, no masses or about a splenomegaly. Extremities: No lower extremity edema. Const: Vital Signs, click to edit/add: Vital Signs - 24 hr 03/28/25 15:00 03/28/25 15:00 03/28/25 15:00 Temperature 98.2 F Pulse Rate [Left P ulse Oximeter] 88 88 Respiratory Rate 18 18 18 Blood Pressure [Ri t Arm] 123/76 Pulse Oximetry 93 94 Oxygen Delivery Me thod Room Air Room Air 03/28/25 19:40 03/28/25 22:14 03/28/25 22:58 Temperature 98.6 F Pulse Rate [Left P ulse Oximeter] 83 83 Respiratory Rate 18 18 16 Blood Pressure [Ri ght Arm] 114/55 L Pulse Oximetry 97 96 Oxygen Delivery Me thod Room Air Room Air 03/28/25 22:58 03/29/25 03:00 03/29/25 07:40 Temperature 98.6 F 98.6 F 97.9 F Pulse Rate [Left P ulse Oximeter] 83 97 76 Respiratory Rate 16 18 20 Blood Pressure [Ri ght Arm] 100/63 119/79 141/90 H Pulse Oximetry 96 94 97 Oxygen Delivery Me thod Room Air Room Air Room Air 03/29/25 09:15 03/29/25 09:15 03/29/25 11:23 Temperature 98.4 F Pulse Rate [Left P ulse Oximeter] 83 72 Respiratory Rate 16 18 Blood Pressure [Ri ght Arm] 125/76 Pulse Oximetry 97 95 Oxygen Delivery Me thod Room Air Room Air DS: Data Data Completed and Pending Completed studies during hospitalization: 03/27/2025 EKG: Normal sinus rhythm with sinus arrhythmia, 86 beats per minute. Possible left atrial enlargement, incomplete right bundle-branch block. Discharge Plan Discharge Disposition: Home, Self-Care Date of Admission: 03/28/25 15:49 Attending Provider on Discharge: Britta Thompson Primary Care Provider: Provider,Not a Local Condition: Improved Anticipated Discharge Date/Time: 03/29/25 14:48 Discharge Medications: New prednisone 20 mg Tablet 60 mg PO DAILY 3 Days Qty: 9 0RF Continued omeprazole 20 mg capsule,delayed release(DR/EC) 20 mg PO DAILY montelukast 10 mg tablet 10 mg PO HS albuterol sulfate 90 mcg/actuation HFA aerosol inhaler 2 inh inhalation Q4H PRN hydroxyzine HCl 10 mg tablet 10 mg PO BID PRN aripiprazole 5 mg tablet 5 mg PO DAILY bupropion HCl 300 mg tablet extended release 24 hr 300 mg PO DAILY Trelegy Ellipta 200-62.5-25 mcg blister with device 1 inh inhalation DAILY Wegovy 2.4 mg/0.75 mL pen injector 2.4 mg subcut Q7D Patient Comments: FRIDAYS budesonide 0.25 mg/2 mL suspension for nebulization 0.25 mg inhalation BID cetirizine 10 mg tablet 10 mg PO DAILY fluoxetine 40 mg capsule 40 mg PO DAILY albuterol sulfate 2.5 mg /3 mL (0.083 %) solution for nebulization 2.5 mg inhalation Q2H PRN Rx Instructions: 1 NEB Q 20 MIN THEN Q 1-4 HRS PRN trazodone 150 mg tablet 150 mg PO HS PRN ipratropium-albuterol 0.5 mg-3 mg(2.5 mg base)/3 mL solution for nebulization 3 ml inhalation Q6H PRN cholecalciferol (vitamin D3) 50 mcg (2,000 unit) tablet 50 mcg PO DAILY multivitamin Tablet 1 tab PO DAILY Fasenra Pen 30 mg/mL auto-injector 30 mg subcut Q4W Discontinued prednisone 20 mg tablet 20 mg PO DAILY amoxicillin-pot clavulanate 875-125 mg tablet 1 tab PO BID Discharge Orders: Discharge Order (Routine); Ordered 03/29/25 Ordered By: Britta Thompson Activity Level: No Restrictions Discharge Diet: Regular Follow Up Appointments: Provider,Not a Local [Primary Care Provider, Family Practice] Referral Note: PCP 7-10 days Forms: MyHealth Info Instructions
--- NOTE | 2025-03-29 15:56 | PC.NURSE ---
Pt discharged with education, all questions answered and scripts sent to patient preferred pharmacy. pt D/c'd in wheelchair with husbands.
== END 2025-03-29 15:22 | disposition home or self-care (01) | DRG 202 ==
LOC: ED 13:12 → MEDSURG 13:16
PROVIDERS: Admitting Provider Family Medicine; Emergency Provider Emergency Medicine; Visit Provider Family Medicine
DX: J45.901 Unspecified asthma with (acute) exacerbation (principal); J96.01 Acute respiratory failure with hypoxia; J06.9 Acute upper respiratory infection, unspecified; F17.210 Nicotine dependence, cigarettes, uncomplicated; R10.31 Right lower quadrant pain; F41.9 Anxiety disorder, unspecified; F32.A Depression, unspecified; Z79.85 Long-term (current) use of injectable non-insulin antidiabetic drugs; I45.10 Unspecified right bundle-branch block
CPT/HCPCS: 36415; 71045; 74177; 80048; 82803; 85025; 85379; 86140; 93005; 94640; 94761; 99284; 99285; A9153; A9270; G0378; J2405; J2919; J3475; J7512; J7626; Q9967

== ENCOUNTER 2025-06-25 17:20 | Emergency (ER) | payer OTHER, SELFPAY ==
[2025-06-25] VITALS (9 sets, daily range): BP systolic 124–125; BP diastolic 78–88; PULSE 77–100; RESP 17–22; TEMP 36.6; O2SAT 90–100; BMI 25.7
--- OUTSIDE RECORDS SUMMARY | 2025-06-25 17:22 | XMS_ITS | Clinical Summary ---
Author Organization [facility] Address [address] [place] [address] Care Team Providers Care Firefighter Marine Name Role Phone Aaron Morales MD Primary Care Provider [phone] Source Comments You are receiving this document as you are listed as the primary care provider,follow-up provider, or the patient has been referred to you for consultation.This is in compliance with the Medicare and[facility] EHR Incentive Program,which states Providers who transition their patient to another setting of careor provider of care or refers their patient to another provider of care shouldprovide summary care record for each transition of care or referral. [facility] Allergies Active Allergy Reactions Criticality Noted Date Comments Aspirin Anaphylaxis,Cough,Ga str ointestinal High 07/12/2022 Excedrin contains ASA; pt to avoid excedrin. Cephalexin Other, see comments 10/25/2021 Jaw pain Dupilumab Other, see comments Low 03/25/2025 Joint pain and eosinophilia (600 -> 1100) Ibuprofen Respiratory Distress,Nausea And Vomiting High 04/18/2018 Medications FLUoxetine (PROZAC) 40 MG capsule Take 1 Capsule (40 mg) by mouth daily. 06/04/20 Active buPROPion (WELLBUTRIN XL) 300 MG 24 [...] Tablet (2,000 Units) by mouth daily. Active ipratropium-albu terol (DUONEB) 0.5-2.5 (3) mg/3ml nebulizer solution Inhale 3 mL every 6 hours as needed for Wheezing. Active Muoflpul-Cob-Dt- FA (PRE- FORMULA) Take 1 Tablet by mouth daily. Active hydrOXYzine HCl (ATARAX) 10 MG tabletIndication s:Anxiety Take 1 Tablet (10 mg) by mouth [...] needed. 90 mL 1 01/05/20 23 Active traZODone (DESYREL) 150 MG tablet Take 1 Tablet (150 mg) by mouth daily at bedtime. 90 Tablet 3 11/07/19 24 Active Additional Information Patient taking differently:150 mg OralHS PRN, Sleep, Reported on 09/28/2024 ARIPiprazole (ABILIFY) 5 MG tablet Take 1 Tablet (5 mg) by mouth daily. 90 Tablet 3 11/07/19 24 Active fluticasone-umec lidin-vilant (TRELEGY ELLIPTA) 200-62.5-25 MCG/ACT inhalerIndicatio ns:Severe persistent asthma with (acute) exacerbation (HRC) Inhale 1 Dose daily. Rinse mouth/gargle after use 180 Each 3 08/10/20 24 Active semaglutide-weig ht management (WEGOVY) 2.4 MG/0.75ML pen injectionIndicat ions:Overweight (BMI 25.0-29.9) (HRC) Inject 0.75 mL (2.4 mg) subcutaneously once every week. 9 mL 3 08/10/20 24 Active omeprazole (PRILOSEC) 20 MG capsule TAKE 1 CAPSULE BY MOUTH EVERY DAY 90 Capsule 3 08/21/20 24 Active ALBUterol sulfate HFA 108 (90 Base) MCG/ACT inhaler INHALE 2 PUFFS BY MOUTH EVERY 6 HOURS 3 Each 3 09/09/20 24 Active montelukast (SINGULAIR) 10 MG tabletIndication s:Allergic rhinitis, unspecified TAKE 1 TABLET BY MOUTH EVERYDAY AT BEDTIME 90 Tablet 1 02/16/20 25 Active Benralizumab (FASENRA PEN) 30 MG/ML SOAJIndications: Eosinophilic Asthma Inject 1 pen (30mg) under the skin every 4 weeks for the first 3 doses, then 1 pen (30mg) under the skin every 8 weeks thereafter Indications: Asthma with Excessive Eosinophil White Blood Cells 1 mL 5 03/26/20 25 Active varenicline tartrate (CHANTIXPAK) 0.5 MG X 11 & 1 MG X 42 TBPK tabletIndication s:Tobacco use disorder (HRC) 1 wk before you stop smoking take 0.5mg daily on days 1-3, 0.5mg 2 times each day on days 4-7, then 1mg 2 times daily 53 Tablet 04/19/20 25 Active Additional Information Patient not taking.Reported on 04/28/2025 varenicline (CHANTIX) 1 MG tabletIndication s:Tobacco use disorder (HRC) Take 1 Tablet (1 mg) by mouth two times a day. Take after eating with a full glass of water.NOTE:Dispens e as maintenance for refills only. 180 Tablet 04/19/20 25 Active Additional Information Patient not taking.Reported on 04/28/2025 sulfamethoxazole -trimethoprim (BACTRIM) 400-80 MG tabletIndication s:Severe persistent asthma with acute exacerbation (HRC) Take 1 Tablet by mouth daily. 45 Tablet 04/28/20 25 Active predniSONE (DELTASONE) 10 MG tabletIndication s:Severe persistent asthma with acute exacerbation (HRC) Take 3 Tablets (30 mg) by mouth daily for 14 days, THEN 2 Tablets (20 mg) daily for 14 days, THEN 1 Tablet (10 mg) daily for 14 days, THEN 1 Tablet (10 mg) every other day for 14 days. 91 Tablet 04/28/20 25 025 Active Problems Problem Noted Date Diagnosed Date Major depressive disorder, recurrent, mild 01/14 Depression, unspecified 01/14/2025 JERRY (stress urinary incontinence, female) 2024 Allergic eosinophilia 09/17/2024 Chronic pansinusitis 02/19/2024 Nasal polyposis 02/19/2024 Samter's triad 02/19/2024 Tobacco use disorder 11/07/2023 IUD contraception 03/14/2023 Overview (03/14/2023): KAUSHIK LOT# [id number] PLACED 03/14/2023 Obesity, Class I, BMI 30-34.9 07/04/2022 History of colonic polyps 10/25/2021 Suicide attempt 10/16/2021 Perimenopause 07/18/2021 Major depressive disorder, recurrent, moderate 0 06/18/2020 Severe persistent asthma 03/20/2019 Dyslipidemia 09/05/2018 Prediabetes 09/05/2018 Vitamin D deficiency 09/05/2018 Stress incontinence of urine 04/22/2018 Overview (06/26/2022): Added automatically from request for surgery [id number] FHx: rheumatoid arthritis 03/31/2014 Attention deficit disorder [...] treatment of high grade histology (histologic HSIL, PAIRS 2, PARIS 3, or AIS) or any high- grade cytology (HSIL or persistent ASC-H) even if this is beyond the age of 65 years. Encounters Date Type Department Care Team Description 04/28/2025 1:10 PM CDT Office [facility] [address] [facility] [place] [address] Tre Greenwood MD Severe persistent asthma with acute exacerbation (HRC) (Primary Dx); Allergic rhinitis, unspecified seasonality, unspecified trigger 04/19/2025 4:00 PM CDT Office Visit [place] [address] [facility] [address] [place] [phone] Aaron Morales MD Severe persistent asthma without complication (HRC) (Primary Dx); Tobacco use disorder (HRC); Encounter for screening mammogram for malignant neoplasm of breast 04/12/2025 1:00 PM CDT Office Visit [place] [address] [facility] [address] [place] [phone] Agusto Landry, PAOksanaC Severe persistent asthma, unspecified whether complicated (HRC); Moderate persistent asthma with acute exacerbation (HRC); Wheezing 03/29/2025 E-Visit [facility] [address] [place] [id number] Mychart, Generic Provider 03/26/2025 1:40 PM CDT Office Visit [place] [address] [facility] [address] [place] [phone] Terry Jalloh MD Severe persistent asthma with acute exacerbation (HRC); Nicotine abuse (HRC) 03/26/2025 Specialty Pharmacy [facility] [address] [place] [id number] Clif Ayala, PharmD from Last 3 Months Immunizations Immunization Administration Dates Next Due Flu Vac (3+ yrs) 10/05/2013, 2,07/31/2011,2008 Flublok (RIV4) 11/12/2019 Influenza ([place] Only) (Flul aval Quad 0.5, 3+ yrs) 06/12/2017 Influenza IIV4 (Quadrivalent ) 0.5mL ([id number]) 06/26/2022,07/17/2021,06/02/2020,2019,06/20/2018,08/29/2016,09/09/2015,0 07/02/2014 Influenza ccIIV3 6 months+ (Flucelvax) 08/10/2024 Moderna Monovalent 12+ 10/05/2020 PCV20 (Wisikbn19) 08/21/2022 PPSV23 (Pneumovax) 07/17/2021 Pfizer Bivalent 12+ 08/21/2022 Pfizer Monovalent 12+ Purple Top 10/30/2021,12/2021 Td 01/30/2006 Tdap 05/11/2024,09/24/2014 Family History Medical History Relation Name Comments Cancer, Breast Paternal Aunt Cancer, Ovary Negative Family History Relation Name Status Comments Paternal Aunt Social History Tobacco Use Types Packs/Day Years Used Date Smoking Tobacco: Every Day Cigarettes 1 Started: 1995; Last attempted to quit: 2020 Tobacco Cessation:Ready to Q uit: Not Asked; Counseling Given: Not Answered Alcohol Use Standard Drinks/Week Comments Yes 0 (1 standard drink = 0.6 oz pur e alcohol) occ PHQ-2 Answer Date Recorded PHQ-2 Score 2 07/09/2023 Comments No Sex and Gender Information Value Date Recorded Sex Assigned at Female 08/12/2023 11:19 AM MOTORIZED SQUAD CAPTAIN Legal Sex Female 5:45 AM CDT Gender Identity Female 08/12/2023 11:19 AM MOTORIZED SQUAD CAPTAIN Sexual Orientation Not on file 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 on file Not on file Last Filed Vital Signs Vital Sign Reading Time Taken Comments Blood Pressure 118/85 04/19/2025 3:26 PM CDT Pulse 89 04/28/2025 1:04 PM CDT Temperature 37.2 C (99 F) 04/12/2025 1:04 PM CDT Respiratory Rate 16 04/19/2025 3:26 PM CDT Oxygen Saturation 98% 04/28/2025 1:04 PM CDT Inhaled Oxygen Concentration - - Weight 69.9 kg (154 lb) 04/28/2025 1:04 PM CDT Height 167.6 cm (5' 6) 04/28/2025 1:04 PM CDT Body Mass Index 24.86 04/28/2025 1:04 PM CDT Plan of Treatment Upcoming Encounters Date Type Department Care Team (Late st Contact Info) Description 07/14/2025 1:30 PM CDT Appointment [facility] [address] [facility] [place] [address] Manda Chawla MD [address] [place], [place] [phone] 08/16/2025 3:00 PM MOTORIZED SQUAD CAPTAIN Telemedicine Sexual Medicine at [facility] [email or web address] [facility] [address] [place], [place] [phone] Bre Taveras, [facility] [address] [facility] [address] [place] [address] Scheduled Procedures Name Priority Associated Diagnoses Date/Ti me CYSTOSCOPIC FORMATION MIDURE THRAL SLING JERRY (stress urinary incontinence, female) Health Maintenance Due Date Last Done Comments Adult Preventive Visit 2000 HepB Vaccine (1) 2001 HPV Vaccine (1 - 3-dose SCDM series) 2009 Mammogram 11/20/2024 11/20/2023, 09/13/2015 Asthma AMP 19-50 yo 06/03/2025 06/03/2024 COVID-19 Vaccine ( season) 2025 08/21/2022, 10/30/2021, 10/09/2021, Additional history exists Influenza Vaccine (#1) 2025 , 06/26/2022, 07/17/2021, Additional history exists Asthma ACT (score of 20 or higher) 07/02/2025 07/02/2024 Prediabetes: HGBA1C 01/08/2026 01/08/2025, 09/02/2023, 06/26/2022 Cervical Cancer Screening 03/14/20262022, 03/14/2023, 09/04/2018 (Completed), Additional history exists Zoster/Shingles Vaccine (1 of 2) 2032 DTaP/Tdap/Td Vaccine (3 - Tdap) 05/11/2034 05/11/2024, 09/24/2014, 01/30/2006 HIV Screening (Preventive Services) Completed 12/17/2014, 12/17/2014 (Completed) Hep C Screening (Preventive Services) Completed 06/26/2022 Pneumococcal Vaccine Completed 08/21/2022, 07/17/20 HepA Vaccine Aged Out No longer eligi [...] this topic Medical Devices Implanted Type Area Matrix Worker Device Identifier Shelf Expiration Date Model / Serial / Lot Stent Propel Sinus Mini 4.0mm - [id number] Implanted:Qty: 1 on 07/02/2024 by Dayton Canseco, DO at [facility] DEVICE Left: NOSE Med[employer]onic 05/27/2025 [id number] / / [id number] Stent Propel Sinus Mini 4.0mm - [id number] Implanted:Qty: 1 on 07/02/2024 by Dayton Canseco, DO at [facility] DEVICE Right: NOSE [employer]onic 05/27/2025 [id number] / / [id number] Stent Propel Sinus Cntr 2.8mm - [id number] Implanted:Qty: 1 on 07/02/2024 by Dayton Canseco, DO at [facility] DEVICE Left: NOSE [employer]onic 01/09/2025 [id number] / / [id number] Stent Propel Sinus Cntr 2.8mm - [id number] Implanted:Qty: 1 on 07/02/2024 by Dayton Canseco, DO at [facility] DEVICE Right: NOSE Medtronic 12/23/2025 [id number] / / [id number] Procedures Procedure Name Priority Date/Time Associated Diagnosis Comments HGB A1C Routine 01/08/2025 7:36 AM CDT High risk medication use MM MAMMOGRAM SCREENING BILAT W 3D ANDERS W CAD Routine 11/20/2023 10:21 AM MOTORIZED SQUAD CAPTAIN CYTOLOGY (PAP) Routine 03/14/2023 12:20 PM CDT Cervical cancer screening HEPATITIS C ANTIBODY, WITH REFLEX (ANTI-HCV) Routine 06/26/2022 12:12 PM CDT Need for hepatitis C screening test from Last 3 Months or Most Recently Relevant to Health Maintenance Results * Hgb A1C (01/08/2025 7:36 AM CDT) Hemoglobin A1C 5.5 <=5.6 % 01/08/2025 4:35 PM CDT [facility] Estimated Average Glucose (Calc) 111 < 117 mg/dL 01/08/2025 4:35 PM CDT [facility] Comment:Estimated average gl ucose (eAG) converts A1c into glucose units (mg/dL) and estimates average glucose over the past approximately 3 months. The eAG reference interval (<117 mg/dL) corresponds to an A1c of <5.7%. Blood Venipuncture / Unknown 01/08/2025 7:36 AM CDT 01/08/2025 7:36 AM CDT us Britta Rangel APRN, DNP LAB_1 Final Res ult [facility] [address] * (ABNORMAL) MM Mammogram Screening Bilat W 3D Anders W CAD (11/20/2023 10:21 AM MOTORIZED SQUAD CAPTAIN) Anatomical Region Laterality Modality Breast Bilateral Mammography Impressions 11/21/2023 2:27 PM MOTORIZED SQUAD CAPTAIN : ACR BI-RADS Category: 0 - Incomplete: Needs Additional Imaging Evaluation (right) RECOMMENDATION: Ultrasound The results and recommendations of this examination will be communicated to the patient and the imaging center will attempt to schedule any recommended follow up with the patient. As a result of the Cures Act, all medical imaging exams are released immediately to [facility]. You may be viewing this report before our scheduling staff and your referring provider. We will attempt to contact you by phone within one business day of this report to schedule any recommended follow-up exams. If you have questions, please contact your health care provider. Narrative 11/21/2023 2:27 PM MOTORIZED SQUAD CAPTAIN MM MAMMOGRAM SCREENING BILAT W 3D ANDERS [...] 12:20 PM CDT) Case Report Pap Case: [id number] Authorizing Provider: Nely Ham MD Collected: 03/14/2023 1220 Ordering Location: [facility] Received: 03/14/2023 1547 First Screen: Skylar Craft CT (ASCP) Specimen: Pap Test, Routine, Cervix/Endocervix 03/27/2023 8:32 AM CDT [facility] Pap Specimen Adequacy Satisfactory for evaluation, endocervical/callahan sformation zone component present. 03/27/2023 8:32 AM CDT [facility] Pap Interpretation (NILM) Negative for intraepithelial lesion or malignancy. 03/27/2023 8:32 AM CDT [facility] at 0832 CDT Pap Disclaimer The Pap test is a screening test designed to aid in the detection of cervical cancer and its precursor lesions. It is not a diagnostic procedure and should not be used as the sole means of detecting cervical cancer. Both false-positive and false-negative results may occur. 03/27/2023 8:32 AM CDT [facility] Gross Description The specimen is received in SurePath fixative and properly labeled. 1 Pap-stained SurePath slide is prepared. 03/27/2023 8:32 AM CDT [facility] Embedded Images 8:32 AM CDT [facility] Other Specimen Type ENTIRE ENDOCERVIX / Unknown 03/14/2023 12:20 PM CDT 03/14/2023 3:47 PM CDT Comment:LMP: No LMP recorded . Nely Ham MD LAB PATHOLOGY Final Resul t Performing Organization Address [facility] Co de Phone Number [facility] [address] [place] [address] * Hepatitis C Antibody, with Reflex (06/26/2022 12:12 PM CDT) Hepatitis C Antibody Negative (Non Reactive) Negative (Non Reactive) 06/26/2022 8:16 PM CDT [facility] Comment:Antibodies to HCV no t detected. Does not exclude the possiblity of exposure to HCV. Blood Venipuncture / Unknown 06/26/2022 12:12 PM CDT 06/26/2022 12:12 PM CDT Aaron Morales MD LAB_1 Final Result Performing Organization Address [facility] de Phone Number [facility] [address] [place] [address] from Last 3 Months or Most Recently Relevant to Health Maintenance Insurance [employer] [facility] [employer] [facility] () Advance Directives * Full Code (Latest Code Status on File) Date Activated Date Inactivated Comments 07/02/2024 12:54 PM 07/02/2024 5:20 PM Care Teams Firefighter Marine Relationship Specialty [place] [address] [place] [address] PCP - General Family Practice 06/26/22
--- OUTSIDE RECORDS SUMMARY | 2025-06-25 17:22 | XMS_ITS | Encounter Summary ---
Author Organization [facility] Address [address] [facility] [place] [address] Care Team Providers Care Hospital Admissions Officer Name Role Phone Sulma Andrews DO Primary Care Provider [phone] Clinic, [facility] Unavailable [phone] Encounter Details Date Type Department Care Team (Late st Contact Info) Description 06/21/2020 [facility] Treatment Plan [facility] [place] [address] [address] [place] [address] Mo Garcia MD PSYCHIATRIC RECOVERY [address] [facility] [address] [place], [place] [id number] Shereen Jones, [facility] [address] [place] [address] MDD (major depressive disorder), recurrent severe, without [...] AM CDT Legal Sex Female 4:36 AM MANAGER ELECTRONIC Gender Identity Female 06/23/2020 8:54 AM CDT [...] Other (insurance/childcare/transportation/housing/planned absences/etc): none Patient's insurance is: [employer] . Does patient need appointment with provider? [...] documented as of this encounter Care Teams Hospital Admissions Officer Relationship Specialty Start Date End Date Sulma Andrews DO PCP - General Family Practice 06/16/20 [place], Iv[facility] Cortes [address] [place] [address] 06/16/20 documented as of this encounter
--- OUTSIDE RECORDS SUMMARY | 2025-06-25 17:22 | XMS_ITS | Clinical Summary ---
Author Organization [employer] [facility] [employer] Address [address] [place] [address] Care Team Providers Care Public Safety Dispatcher Name Role Phone Sulma Andrews DO Unavailable [phone] Pcp, No Primary Care Provider Unavailabl e Allergies Active Allergy Reactions Criticality Noted Date Comments Smvjfko-Oextsngnxaryp-Jjkxg ine Dyspnea 07/12/2022 Ibuprofen Nausea And Vomiting,Dyspnea 04/18/2018 Levofloxacin Other - Describe In Comment Field 04/21/2018 Jaw pain Medications NebulizerIndicati ons:DE [place] (dyspnea on exertion),Chronic cough Nebulizer, disposable neb kit x 4, reuseable neb kit x 1, mask x 1, filters x 1. 1 Device 8 Active fluticasone (50 mcg per actuation) nasal solution (FLONASE)Indicati ons:PND (post-nasal drip) Inhale 1 [place] in the nostril(s) once daily. 1 Bottle [...] 5mg #30 if needed in afternoon. [facility]. CSA 06/2017. Dr. Andrews. 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 spontaneous labor 1 day later 2006 Term 40w 0d M Vag Epidur al Livin g brayde n [facility] Delivery Location:[place] Last Filed Vital Signs Vital Sign Reading Time Taken Comments Blood Pressure 132/64 07/12/2022 11:45 PM CDT Pulse 92 07/12/2022 11:45 PM CDT Temperature 37 C (98.6 F) 12/03/2021 6:03 PM STATION WORKER Respiratory Rate 24 07/12/2022 10:08 PM CDT [...] of 3 - 19+ 3-dose series) 2001 HPV series for age 9-45 (1 - 3-dose SCDM series) 2009 Pap test for age 21-65 09/04/2021 8, 09/04/2018, 09/09/2015, Additional history exists Depression screening for age 12+ 07/17/2022 07/17/2021, 08/29/2020, 07/25/2020, Additional history exists Pneumococcal series for age 6-49 (2 of 2 - PCV) 07/17/2022 07/17/2021 BMI (ht and wt on same day) for age 18+ 12/03/2022 12/03/2021, 11/14/2021, 07/17/2021, Additional history exists Tetanus booster 09/24/2024 09/24/2014, 01/30/2006 COVID-19 vaccine series ( season) 2025 08/21/2022, 10/30/2021, 10/09/2021, Additional history exists Influenza Vaccine (#1) 2025 , 06/02/2020, 11/12/2019, Additional history exists RSV vaccine for adults or (1 - 1-dose 75+ series) 2057 HIV for age 15-65 Completed 12/17/2014, 05/11/2010 Hepatitis C screening for ag e 18-79 Completed 11/06/2017, 12/17/2014, 05/11/2010 Procedures Procedure Name Priority Date/Time Associated Diagnosis Comments PROFESSOR OF CHEMICAL ENGINEERING THIN PREP PAP SCREEN IMAGED Routine 09/04/2018 1:32 PM STATION WORKER Screening for cervical cancer ANTI HCV Routine 11/06/2017 1:40 PM STATION WORKER Exposure to hepatitis C RAPID HIV SCREEN STAT 12/17/2014 8:25 PM CDT from Last 3 Months or Most Recently Relevant to Health Maintenance Results * PROFESSOR OF CHEMICAL ENGINEERING THIN PREP PAP SCREEN IMAGED (09/04/2018 1:32 PM STATION WORKER) Case Report Gynecologic Cytology Report Case: [id number] Authorizing Provider: Sulma Andrews DO Collected: 09/04/2018 1332 Ordering Location: [facility] Received: 09/04/2018 1416 Clinic First Screen: Wilman Sullivan Specimen: PROFESSOR OF CHEMICAL ENGINEERING ThinPrep Vial Screening, Cervical 09/14/2018 9:42 AM STATION WORKER [facility] INTERPRETATION /RESULT NEGATIVE FOR INTRAEPITHELIAL LESION OR MALIGNANCY (NIL) (none) 09/14/2018 9:42 AM STATION WORKER [facility] at 0942 STATION WORKER SPECIMEN ADEQUACY Satisfactory for evaluation Endocervical component present Scant cellularity 09/14/2018 9:42 AM STATION WORKER [facility] HPV REQUEST HPV and PAP 09/14/2018 9:42 AM STATION WORKER [facility] Date of LMP hormonally surpressed 09/14/2018 9:42 AM STATION WORKER [facility] Last Pap Date 09/09/15 09/14/2018 9:42 AM STATION WORKER [facility] Last Pap Result NIL 09/14/2018 9:42 AM STATION WORKER [facility] Abnormal Pap or [place] Bx in last 5 years No 09/14/2018 9:42 AM STATION WORKER [facility] Menstrual Status Irregular Periods 09/14/2018 9:42 AM STATION WORKER [facility] [place] Bx Done Today No 09/14/2018 9:42 AM STATION WORKER [facility] Additional Information None given 09/14/2018 9:42 AM STATION WORKER [facility] Automated Review Failed 09/14/2018 9:42 AM STATION WORKER [facility] Comment:Processing failed, m anual screening required. ThinPrep Imaging System, [employer] ANCILLARY TESTING PROFESSOR OF CHEMICAL ENGINEERING HPV Ordered, Please see separate report 09/14/2018 9:42 AM STATION WORKER [facility] Note The pap test is [...] lesions. Cytology is screened and interpreted at [facility] - [address], [place] [address] and [facility] - [address]; [place] [address] and [facility] - [address]; [place] [address] and [facility] [address]; [place] [address] 09/14/2018 9:42 AM STATION WORKER [facility]- ENTRAL LAB[facility]ATORY Other (Cervical) Non-Blood / Unknown 09/04/2018 1:32 PM STATION WORKER 09/04/2018 2:16 PM STATION WORKER Sulma Andrews DO PATHOLOGY/CYTOLOGY Final Re sult [facility] [address] [place] [address], [place] * ANTI HCV (11/06/2017 1:40 PM STATION WORKER) Pathologist [facility] HEPATITIS C ANTIBODY Non-Reacti ve Non-Reacti ve 11/06/2017 7:23 PM STATION WORKER [facility] TRAL LABORATORY Blood BLOOD SPECIMEN / Unknown Venipuncture / Unknown 11/06/2017 1:40 PM STATION WORKER 11/06/2017 1:40 PM STATION WORKER Narrative [facility] - 11/06/2017 7:23 PM STATION WORKER Antibodies to HCV not detected; does not exclude the possibility of exposure to HCV. Kevon Garza MD SEND OUTS Final R esult [facility] [address] [place] [address], [place] * RAPID HIV SCREEN (12/17/2014 8:25 PM CDT) Pathologist [facility] RAPID HIV SCREEN Non-Reacti ve Non-Reacti ve 12/17/2014 9:01 PM CDT [facility] Blood specimen (specimen) BLOOD SPECIMEN / Unknown Venipuncture / Unknown 12/17/2014 8:25 PM CDT 12/17/2014 8:37 PM CDT Talon Jorge MD CHEMISTRY Final R esult [facility] [address] [place] [address] from Last 3 Months or Most Recently Relevant to Health Maintenance Insurance [facility]O MARTINS [phone] [address] Advance Directives * Full Code (Latest Code [...] 8:40 PM 03/06/2007 1:04 AM Care Teams Public Safety Dispatcher Relationship Specialty Start Date End Date Pcp, No . PCP - General 12/16/21 Sulma Andrews DO Family Practice 07/28/17
--- OUTSIDE RECORDS SUMMARY | 2025-06-25 17:22 | XMS_ITS | Clinical Summary ---
Author Organization [employer] Address [address] [facility] 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 Gender Identity Female 06/23/2020 8:54 AM CDT [...] PREVENTIVE VISIT 07/17/2022 07/17/2021, 06/30 LIPID 2022 DTAP/TDAP/TD VACCINE (3 - Td or Tdap) 09/24/2024 09/24/2014, 01/30/2006 COVID-19 VACCINE (5 - season) 2025 08/21/2022, 10/30/2021, 10/09/2021, Additional history exists INFLUENZA VACCINE (#1) 2025 2, 07/17/2021, 06/02/2020, Additional history exists DIABETES SCREENING 07/25/2026 07/25/2023, 0 06/19/2020, 06/18/2020, Additional history exists ZOSTER VACCINE (1 of 2) 2032 PNEUMOCOCCAL VACCINE: PEDIATRICS (0 to 5 YEARS) AND AT-RISK PATIENTS (6 to 49 YEARS) Aged Out 08/21/2022, 07/17/2021 No longer eligibl e based on patient's age to complete this topic HPV VACCINE (No Doses Required) Completed MENINGITIS VACCINE Aged Out No longer eligible based on patient's age to complete this topic Procedures Procedure Name Priority Date/Time Associated Diagnosis Comments COMPREHENSIVE METABOLIC PANEL STAT 07/25/2023 9:58 PM CDT HCL PAP THIN LAYER DIAGNOSTIC Routine 12/14/2004 12:00 AM E MERCHANT Supervis Normal 1st Preg from Last 3 [...] MD LAB - BLOOD ORDERABLES Final Result LABORATORY [facility] [address] [facility] Lab (1st floor, no room number) [place] [address], [facility] [phone] * A THIN LAYER, DIAGNOSTIC PAP (12/14/2004 12:00 AM E MERCHANT) Copath Report Patient Name: ZOILA DEUTSCH MR#: [id number] Specimen #: [id number] Collected: 12/14/2004 Received: 12/15/2004 Reported: 12/22/2004 16:40 [...] Cohen M.D. Processed and screened at [facility] CLINICAL HISTORY: LMP: 1-2-05 , Previous abnormal pap: LGSIL Date of Last Pap: 10-11, Cryotherapy, COPATH 12/14/2004 12/15/2004 1:5 7 PM E MERCHANT us Manda Dominguez MD LABORATORY Final R esult [facility] from Last 3 Months or Most Recently Relevant to Health Maintenance Insurance [facility] [employer] Advance Directives For more information, please contact: [phone] * Full Code (Latest Code Status on File) Date Activated Date Inactivated Comments 07/26/2023 9:01 AM 07/30/2023 6:33 PM All basic and advanced life-sustaining interventions are performed as appropriate Question Answer Comments Code status determined by: Discussion with norae nt/ legal decision maker * Full Code Date Activated Date Inactivated Comments 06/18/2020 11:10 AM 06/20/2020 5:50 PM All basic a nd advanced life-sustaining interventions are performed as appropriate Question Answer Comments Code status determined by: Discussion with norae nt/ legal decision maker Care Teams Supervisor Cold Rolling Relationship Specialty Start Date End Date Sulma Andrews DO PCP - General Family Practice 06/16/20 [place], Iveth Cortes [address] [place] [address] 06/16/20
--- OUTSIDE RECORDS SUMMARY | 2025-06-25 17:22 | XMS_ITS | Encounter Summary ---
Author Organization [employer] Address [address], [place] [address] Care Team Providers Care Cath Lab Name Role Phone Aaron Morales MD Primary Care Provider [phone] Reason for Visit * Reason Comments Prior Authorization For Medication Encounter Details Date Type Department Care Team (Late st Contact Info) Description 03/03/2025 Telephone Specialty Center [facility] [address] [facility]. 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 Thanks. * Lexy Arzate, PharmHenry - 03/04/2025 12:47 PM CDT See 03/04 [...] proceed with PA renewal. Message routed to [facility] pharmacist to review options. Chart notes indicate initialPA was approved for 6 months and is good thru 03/30/25. Lexy Arzate, PharmHenry 03/04/2025 9:39 AM Specialty Pharmacy * Robinson Tatum, RN - 03/03/2025 3:57 PM CDT PA initiated. * Jamshid Carnes - 03/03/2025 8:38 AM CDT Is this for a prior authorization or a medication alternative request? Prior Authorization. Name/Dose of Medication: dupilumab (DUPIXENT) 300 MG/2ML prefilled syringe [facility] [address] [place] [address] (Pharmacy) Care team, please start PA for requested medication. Fax can be found in completed RightFAX folder. documented in this encounter Plan of Treatment Upcoming Encounters Date Type Department Care Team (Late st Contact Info) Description 07/14/2025 1:30 PM CDT Appointment Specialty Center [address] [facility] [address] [place] [address] Manda Chawla MD [address] [place] [address] 08/16/2025 3:00 PM HOT IRON WORKER Telemedicine Sexual Medicine at [facility] [address] [place], [place] [address] Bre Taveras, [facility] [address] [place] [address] Scheduled Procedures Name Priority Associated Diagnoses Date/Ti me CYSTOSCOPIC FORMATION MIDURE THRAL SLING JERRY (stress urinary incontinence, female) documented as of this encounter Visit Diagnoses Not on filedocumented in this encounter Care Teams Cath Lab Relationship Specialty [place] [address] [place] [address] PCP - General Family Practice 06/26/22 documented as of this encounter
--- NOTE | 2025-06-25 17:38 | CRLHL7_ITS ---
For Patients: As a result of the Cures Act, medical imaging exams and procedure reports are released immediately into your electronic medical record. You may view this report before your referring provider. If you have questions, please contact your health care provider. INDICATION: Cough, shortness of breath TECHNIQUE: Chest radiograph 2 views COMPARISON: 03/27/2025 FINDINGS: Mediastinum: The mediastinum is normal in appearance. The heart silhouette is normal in size and morphology. Lung: Bilateral pulmonary hyperinflation and lucency is noted. No sign of pleural effusion seen. No pneumothorax is identified. Bone and Soft tissue: Unremarkable for age. IMPRESSION: 1. Bilateral pulmonary hyperinflation and lucency is noted. This is suggestive of moderate, stable pulmonary emphysema. Dictated by Atif Hyman MD @ 06/25/2025 5:52:34 PM Dictated by: Atif Hyman MD @ 06/25/2025 17:52:38 (Electronically Signed)
--- NOTE | 2025-06-25 18:00 | ED.GENADULT ---
HPI - General Adult General Chief complaint: Chest Pain Stated complaint: Chest pain Time Seen by Provider: 06/25/25 17:31 Source: patient Mode of arrival: ambulatory Limitations: no limitations History of Present Illness HPI narrative: 44-year-old female with a history of asthma presenting today with shortness of breath and chest pain. This all started today. Patient states that she can not catch her breath and feels very wheezy. She states that she stop taking all of her medications about 2 weeks ago including her albuterol inhaler and her trelegy because she has not been ?feeling right?. She states that she also stopped taking all of her mental health medication about 6 months ago. She states that today she became more short of breath as the day progressed. She is coughing, nonproductive. No fevers or chills. Related Data Home Medications ?Medication ?Instructions ?Recorded ?Confirmed albuterol sulfate 90 mcg/actuation 2 inh inhalation Q4H PRN 09/11/24 06/25/25 aerosol inhaler aripiprazole 5 mg tablet 5 mg PO DAILY 09/11/24 06/25/25 bupropion HCl 300 mg 24 hr tablet, 300 mg PO DAILY 09/11/24 06/25/25 extended release fluticasone fur. 200 mcg-umeclid 1 inh inhalation DAILY 09/11/24 06/25/25 62.5 mcg-vilant 25 mcg inhalat.powder (Trelegy Ellipta) hydroxyzine HCl 10 mg tablet 10 mg PO BID PRN 09/11/24 06/25/25 montelukast 10 mg tablet 10 mg PO HS 09/11/24 06/25/25 omeprazole 20 mg capsule,delayed 20 mg PO DAILY 09/11/24 06/25/25 release semaglutide (weight loss) 2.4 2.4 mg subcut Q7D 09/11/24 06/25/25 mg/0.75 mL subcutaneous pen injector (Wegovy) albuterol sulfate 2.5 mg/3 mL 2.5 mg inhalation Q2H PRN 03/27/25 06/25/25 (0.083 %) solution for nebulization benralizumab 30 mg/mL subcutaneous 30 mg subcut Q4W 03/27/25 06/25/25 auto-injector (Fasenra Pen) budesonide 0.25 mg/2 mL suspension 0.25 mg inhalation BID 03/27/25 06/25/25 for nebulization cetirizine 10 mg tablet 10 mg PO DAILY 03/27/25 06/25/25 cholecalciferol (vitamin D3) 50 50 mcg PO DAILY 03/27/25 06/25/25 mcg (2,000 unit) tablet fluoxetine 40 mg capsule 40 mg PO DAILY 03/27/25 06/25/25 ipratropium 0.5 mg-albuterol 3 mg 3 ml inhalation Q6H PRN 03/27/25 06/25/25 (2.5 mg base)/3 mL nebulization soln multivitamin 1 tab PO DAILY 03/27/25 06/25/25 trazodone 150 mg tablet 150 mg PO HS PRN 03/27/25 06/25/25 Previous Rx's ?Medication ?Instructions ?Recorded prednisone 20 mg tablet 60 mg (3 x 20 mg) PO DAILY 3 days 03/29/25 #9 tabs prednisone 20 mg tablet 20 mg PO DIRECTED 9 days #18 06/25/25 tabs Allergies Allergy/AdvReac Type Severity Reaction Status Date / Time aspirin AdvReac Verified 06/25/25 17:27 cephalexin (From Keflex) AdvReac Verified 06/25/25 17:27 Review of Systems Status of ROS: Reports: 10 or more systems reviewed and unremarkable except as noted in History and below [facility] Medical History Anxiety ?F41.9 - Anxiety disorder, unspecified (ICD-10) Depression ?F32.A - Depression, unspecified (ICD-10) Asthma ?J45.909 - Unspecified asthma, uncomplicated (ICD-10) Surgical History History of sinus surgery ?Z98.890 - Other specified postprocedural states (ICD-10) History of colposcopy ?Z98.890 - Other specified postprocedural states (ICD-10) Family History Grandfather Colon cancer Aunt Breast cancer Brother Asthma Social History Narrative: She lives in [place] with her Grey, her 18-year-old son and her daughter who is currently in college. 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 Code status is full. She rarely drinks alcohol. She is a smoker. What is your current living situation?: I presently have a place to live Problems where you live: no known problems Problems where you live details: N/A In the past 12 months, utilities in danger of being shut off: no In past 12 months, lack of transportation kept you from medical appts, meetings, work, or getting things needed for daily living: no In the past 12 mos, have been you worried that your food would run out before you had money to buy more?: never true In the past 12 mos, the food you bought just didn't last and you didn't have money to buy more?: never true Highest level of school completed/degree received: Associate degree: academic program Smoking Status: Current every day smoker What tobacco products do you use: cigarettes Smoking packs per day: 1 Smoking cigarettes per day: 20.0 Second hand tobacco smoke exposure: Yes How often do you have a drink containing alcohol: never AUDIT-C Alcohol total score: 0 Non-prescribed substance use: denies use How often does anyone, including family, friends and others, physically hurt you: never How often does anyone, including family, friends and others, insult or talk down to you: never How often does anyone, including family, friends and others, threaten you with harm: never How often does anyone, including family, friends and others, scream or curse at you: never service: No Exam Narrative: Exam Narrative: Well-nourished well-developed patient in acute respiratory distress. Alert and oriented. Answers questions appropriately. Mood and affect are appropriate. Thoughts are goal oriented and rational. No tangential or magical thinking noted. Patient cannot complete a full sentence without needing to catch her breath. HEENT: Normocephalic atraumatic. Pupils are equally round reactive to light. Extraocular muscles are intact. Conjunctivae are moist without any icterus noted. Moist mucous membranes. Multiple facial piercings. Cardiovascular: Heart is regular rate and rhythm S1 and S2 are present without any murmurs. Lungs: Diffuse wheezing bilaterally. Abdomen: Soft and nontender nondistended with normal bowel sounds. Extremities: Bilateral lower extremities are without edema. Skin: Well perfused without any obvious rashes. Const: Vital Signs, click to edit/add: Vital Signs - 24 hr 06/25/25 17:31 Temperature 97.8 F Pulse Rate [Pulse Oximeter] 100 Respiratory Rate 22 Blood Pressure [Ri ght Upper Arm] 125/83 Pulse Oximetry 90 Oxygen Delivery Me thod Room Air Course Course ED Course: Patient was at 90% on room air. She was given a DuoNeb, IV Solu-Medrol. EKG, read by me, shows normal sinus rhythm with a pulse of 77. Normal QRS, OH and QTC intervals. Patient felt much better after her 1st DuoNeb. Wheezing did decrease but was still present. Oxygen saturation increased to 94% on room air. Did go ahead and repeat the DuoNeb at this time. In the meantime blood work was done: CBC showed an elevated hemoglobin at 17.2. Normal white cell count. Normal VBG. Potassium slightly low at 3.3, chemistries otherwise unremarkable. Normal magnesium. Normal troponin. Negative triple swab. Chest x-ray, read by me, was unremarkable. After 2nd DuoNeb patient was oxygenating at 94% on room air, wheezing had resolved and she was feeling significantly better. Pulse was 82. Vital Signs Vital signs: Initial Vital Signs Temperature 97.8 F 06/25/25 17:31 Temperature Source Temporal Artery Scan 06/25/25 17:31 Pulse Rate 100 06/25/25 17:31 Respiratory Rate 22 06/25/25 17:31 Blood Pressure 125/83 06/25/25 17:31 Blood Pressure Mean 97 06/25/25 17:31 Pulse Oximetry 90 06/25/25 17:31 Oxygen Delivery Method Room Air 06/25/25 17:31 Vital Signs Temperature 97.8 F 06/25/25 17:31 Pulse Rate 100 06/25/25 17:31 Respiratory Rate 22 06/25/25 17:31 Blood Pressure 125/83 06/25/25 17:31 Pulse Oximetry 90 06/25/25 17:31 Oxygen Delivery Method Room Air 06/25/25 17:31 Temperature 97.8 F 06/25/25 17:31 Pulse Rate 100 06/25/25 17:31 Respiratory Rate 22 06/25/25 17:31 Blood Pressure 125/83 06/25/25 17:31 Pulse Oximetry 90 06/25/25 17:31 Oxygen Delivery Method Room Air 06/25/25 17:31 Medications Administered Medications: Discontinued Medications Generic Name Dose Route Start Last Admin Trade Name Christine PRN Reason Stop Dose Admin Albuterol/Ipratropium 1 [facility] 06/25/25 17:37 06/25/25 18:04 Iprat-Albut 0.5-2.5 Mg/3 Ml [facility] 06/25/25 17:38 1 neb ONCE ONE Administration Albuterol/Ipratropium 1 neb 06/25/25 18:30 06/25/25 18:43 Iprat-Albut 0.5-2.5 Mg/3 Ml [facility] 06/25/25 18:31 1 neb ONCE ONE Administration Methylprednisolone Sodium Succinate 125 mg 06/25/25 17:37 06/25/25 18:07 Methylprednisolone Sod Succ 62.5 Mg/Ml (125) IVP 06/25/25 17:38 125 mg ONCE ONE Administration Medical Decision Making [facility] Narrative Medical decision making narrative: 44-year-old female presenting with an asthma exacerbation, treated per above. Patient is instructed to restart her inhalers at this time and she is in agreement with this. Will send her home with a prednisone taper. Medical Records Medical records reviewed: Yes I reviewed the patient's medical records Lab Data Lab results reviewed: Yes I reviewed the patient's lab results Labs: Lab Results 06/25/25 06/25/25 Range/Units 17:30 17:38 WBC 7.81 (4.50-11.00) K/uL RBC 5.46 H (4.00-5.20) m/uL Hgb 17.2 H (12.0-16.0) gm/dL Hct 48.1 (33.0-51.0) % MCV 88 (80-100) fL MCH 32 (26-34) pg MCHC 36 (32-36) gm/dL RDW Coeff of Ritu 11.7 (11.5-15.5) % Plt Count 303 (140-440) K/uL Neut % (Auto) 65.8 (42.0-72.0) % Lymph % (Auto) 27.3 (20-44) % [place] % (Auto) 6.7 (0.0-11.0) % Eos % (Auto) 0.0 (0.0-7.0) % Baso % (Auto) 0.1 (0.0-3.0) % Neut # (Auto) 5.14 (1.7-7.0) K/uL Lymph # (Auto) 2.13 (0.90-2.90) K/uL [place] # (Auto) 0.50 (0.00-0.90) K/UL Eos # (Auto) 0.00 (0.00-0.50) K/uL Baso # (Auto) 0.01 (0.00-0.30) K/uL Abs Immat Gran (auto) 0.01 (0.00-0.30) K/uL Imm/Tot Granulo (auto) 0.1 % VBG pH 7.384 (7.32-7.43) VBG pCO2 42 (40-50) mmHG VBG pO2 39.6 (25-47) mmHG VBG HCO3 25 (21-28) mmol/L Sodium 138 (135-149) mmol/L Potassium 3.3 L (3.6-5.1) mmol/L Chloride 108 (96-114) mmol/L Carbon Dioxide 24 (20-32) mmol/L Anion Gap 6 L (7-15) mEq/L BUN 10 (5-24) mg/dL Creatinine 0.9 (0.5-1.5) mg/dL Estimated Creat Clear 76.23 Estimated GFR 82 ml/min Glucose 102 (60-115) mg/dL Calcium 9.4 (8.4-10.6) mg/dL Magnesium 2.0 (1.5-2.6) mg/dL Troponin I < 0.01 (0.01-0.04) ng/mL C-Reactive Protein < 0.5 L (0.5-1.0) mg/dL SARS-CoV-2 (PCR) Negative SARS-CoV-2 (Negative) Influenza Type A (PCR) Negative PCR FLU A (Negative) Influenza Type B (PCR) Negative PCR FLU B (Negative) RSV (PCR) Negative PCR RSV (Negative) Imaging Data Chest x-ray: Attestation: I have reviewed the pertinent imaging results. Radiologist's impression: TECHNIQUE: Chest radiograph 2 views COMPARISON: 03/27/2025 FINDINGS: Mediastinum: The mediastinum is normal in appearance. The heart silhouette is normal in size and morphology. Lung: Bilateral pulmonary hyperinflation and lucency is noted. No sign of pleural effusion seen. No pneumothorax is identified. Bone and Soft tissue: Unremarkable for age. IMPRESSION: 1. Bilateral pulmonary hyperinflation and lucency is noted. This is suggestive of moderate, stable pulmonary emphysema. ECG Data Attestation: I personally reviewed and interpreted this ECG as follows: Discharge Plan Discharge Clinical Impression: Asthma with acute exacerbation Patient Disposition: Home, Self-Care Condition: Improved Additional Instructions: You do need to restart your inhalers as prescribed. You will be sent home with a prescription for prednisone-take as directed. Follow-up with your primary care provider as needed. Return to the emergency department if shortness of breath returns. Prescriptions: New prednisone 20 mg tablet 20 mg PO DIRECTED 9 Days Qty: 18 0RF Rx Instructions: 60 mg p.o. daily for 3 days (3 tablets daily on day 1-3), 40 mg daily for 3 days (2 tablets daily on days 4-6), 20 mg daily for 3 days (1 tablet daily on days 7-9). No Action omeprazole 20 mg capsule,delayed release(DR/EC) 20 mg PO DAILY montelukast 10 mg tablet 10 mg PO HS albuterol sulfate 90 mcg/actuation HFA aerosol inhaler 2 inh inhalation Q4H PRN hydroxyzine HCl 10 mg tablet 10 mg PO BID PRN aripiprazole 5 mg tablet 5 mg PO DAILY bupropion HCl 300 mg tablet extended release 24 hr 300 mg PO DAILY Trelegy Ellipta 200-62.5-25 mcg blister with device 1 inh inhalation DAILY Wegovy 2.4 mg/0.75 mL pen injector 2.4 mg subcut Q7D Patient Comments: FRIDAYS budesonide 0.25 mg/2 mL suspension for nebulization 0.25 mg inhalation BID cetirizine 10 mg tablet 10 mg PO DAILY fluoxetine 40 mg capsule 40 mg PO DAILY albuterol sulfate 2.5 mg /3 mL (0.083 %) solution for nebulization 2.5 mg inhalation Q2H PRN Rx Instructions: 1 NEB Q 20 MIN THEN Q 1-4 HRS PRN trazodone 150 mg tablet 150 mg PO HS PRN ipratropium-albuterol 0.5 mg-3 mg(2.5 mg base)/3 mL solution for nebulization 3 ml inhalation Q6H PRN cholecalciferol (vitamin D3) 50 mcg (2,000 unit) tablet 50 mcg PO DAILY multivitamin Tablet 1 tab PO DAILY Fasenra Pen 30 mg/mL auto-injector 30 mg subcut Q4W prednisone 20 mg Tablet 60 mg PO DAILY 3 Days Qty: 9 0RF Follow Up/Referrals: Provider,Not a Local [Primary Care Provider, Family Practice] Stand Alone Forms: [facility] Info Instructions Procedures ABG Interpretation ABG Results: 06/25/25 17:38 VBG pH 7.384 VBG pCO2 42 VBG pO2 39.6 VBG HCO3 25
[2025-06-25] MEDS: IPRAT-ALBUT 0.5-2.5 MG/3 ML NEB 1 NEB IH ×2 (18:04→18:43)
[2025-06-25] MEDS: METHYLPREDNISOLONE SOD SUCC 62.5 MG/ML (125) 125 MG IVP (18:07)
[2025-06-25 18:19] LABS: PCR FLU A Negative PCR FLU A (Negative); PCR FLU B Negative PCR FLU B (Negative); PCR RSV Negative PCR RSV (Negative); SARS PCR* Negative SARS-CoV-2 (Negative)
[2025-06-25 18:20] LABS: HCO3 VBG 25 mmol/L (21-28); PCO2 VBG 42 mmHG (40-50); PO2 VBG 39.6 mmHG (25-47); pH VBG 7.384 (7.32-7.43)
[2025-06-25 18:24] LABS: Hematocrit* 48.1 % (33.0-51.0); Hemoglobin* 17.2 gm/dL (12.0-16.0); Immature Granulocytes Abs Auto 0.01 K/uL (0.00-0.30); Immature Granulocytes Pct Auto 0.1 %; Lymphocytes Absolute Auto 2.13 K/uL (0.90-2.90); Mean Corpuscular HGB Conc 36 gm/dL (32-36); Mean Corpuscular Hemoglobin 32 pg (26-34); Mean Corpuscular Volume 88 fL (80-100); RDW Coefficient of Variation % 11.7 % (11.5-15.5); Red Blood Count* 5.46 m/uL (4.00-5.20); Slide Review Reflex No; White Blood Count* 7.81 K/uL (4.50-11.00)
[2025-06-25 18:42] LABS: Chloride* 108 mmol/L (96-114); Sodium* 138 mmol/L (135-149)
[2025-06-25 18:43] LABS: Potassium* 3.3 mmol/L (3.6-5.1)
[2025-06-25 18:45] LABS: Blood Urea Nitrogen* 10 mg/dL (5-24); Creatinine* 0.9 mg/dL (0.5-1.5); Est. Creatinine Clearance* 76.23; Estimated Glomerular Filt Rate 82 ml/min
[2025-06-25 18:46] LABS: Anion Gap 6 mEq/L (7-15); Calcium* 9.4 mg/dL (8.4-10.6); Carbon Dioxide* 24 mmol/L (20-32); Glucose* 102 mg/dL (60-115)
== END 2025-06-25 19:20 | disposition home or self-care (01) ==
PROVIDERS: Emergency Provider Family Medicine
DX: J45.901 Unspecified asthma with (acute) exacerbation (principal)
CPT/HCPCS: 36415; 71046; 80048; 82803; 83735; 84484; 85025; 86140; 87631; 93005; 94761; 96374; 99284; J2919